=== PATIENT | female | born 1970 | race Caucasian/White ===

== ENCOUNTER → 2024-01-06 15:27 | Outpatient (REF) | payer BC, SELFPAY | LOC: MRI 3T 15:27 | PROVIDERS: ATTENDING PHYSICIAN Family Medicine | DX: I63.9 Cerebral infarction, unspecified (principal) | CPT/HCPCS: 70544 ==

== ENCOUNTER → 2024-01-13 13:17 | Outpatient (REF) | payer BC, SELFPAY | LOC: MRI 3T 13:17 | PROVIDERS: ATTENDING PHYSICIAN Family Medicine | DX: I63.9 Cerebral infarction, unspecified (principal) | CPT/HCPCS: 70549; A9585 ==

== ENCOUNTER 2024-03-16 11:04 | Emergency (ER) | payer BC, SELFPAY ==
[2024-03-16 11:15] VITALS: BP 128/71
[2024-03-16 11:27] LABS: % Eosinophils 2.3 % (0-6); % Immature Granulocytes 0.3 % (0-0.5); % Lymphocytes 36.4 % (20.5-51.1); % Monocytes 5.2 % (1.7-9.3); % Neutrophils 54.8 % (42.2-75.2); Absolute Basophils 0.1 10^3/uL (0-0.2); Absolute Eosinophils 0.1 10^3/uL (0-0.7); Absolute Lymphocytes 2.3 10^3/uL (1.2-3.4); Absolute Monocytes 0.3 10^3/uL (0.1-0.6); Absolute Neutrophils 3.4 10^3/uL (1.4-6.5); Hematocrit 36.8 % (37.0-47.0); Hemoglobin 12.4 g/dL (12.0-16.0); Mean Corp Hgb Conc. 33.7 g/dL (33.0-37.0); Mean Corpuscular Hgb 32.6 pg (27.0-31.0); Mean Corpuscular Volume 96.8 fL (81.0-99.0); Mean Platelet Volume 9.2 fL (7.4-10.4); Nucleated Red Blood Cells % 0 %; Platelet Count 213 10^3/uL (130-400); White Blood Cell Count 6.2 10^3/uL (4.8-10.8)
[2024-03-16 11:49] LABS: ALT (SGPT) 19 U/L (0-35); AST (SGOT) 25 U/L (14-36); Albumin 3.8 g/dl (3.5-5.0); Alkaline Phosphatase 46 U/L (38-126); Blood Urea Nitrogen 10 mg/dl (7-17); Calcium 9.2 mg/dl (8.4-10.2); Carbon Dioxide 27 mmol/L (22-30); Chloride 108 mmol/L (98-107); Glucose 103 mg/dl (70-99); Lipase 195 U/L (23-300); Potassium 3.9 mmol/L (3.5-5.1); Sodium 138 mmol/L (135-145); Total Bilirubin 0.5 mg/dl (0.2-1.3); Total Protein 6.2 g/dl (6.3-8.2); eGFR > 60.00
[2024-03-16 11:52] LABS: Troponin I < 0.012 ng/ml
--- NOTE | 2024-03-16 14:50 | ED.GENMED ---
History of Present Illness
<Jayne Lerma MANAGER IT SECURITY - Last Filed: 03/17/24 08:45>
General
Chief Complaint: Abdominal Symptoms
Source: patient
Exam Limitations: none
Time Seen by Provider: 03/16/24 14:49
Nursing documentation reviewed up to this point in time: agreed with
Travel History
Have you had any contact with someone who has COVID-19?: No
Do you have any symptoms of coronavirus? Fever > 100 degrees, chills, cough, shortness of breath, sore throat, loss of taste or smell, muscle aches, or headache?: No
History of Present Illness
History of Present Illness:
53-year-old with history of chronic pancreatitis, chronic abdominal pain under care of pain management Dr. Ocampo in [place], takes Vicodin 10 mg, recently upped to two tablets every 6 hours for chronic abdominal pain.
Last seen a month ago and due for her monthly appointment
Pt presents with pain from under her right arm down to RLQ starting 3 days ago. 'Different' than her typical chronic abdominal pain. The pain has moved to only Right side and epigastric area. Worse with deep breaths and certain movements. Saw GI at
[facility] 5 days ago and was told her pain is 'pancreatic pain' and referred back to pain management.
Denies fever, chills, has had frequency of urination with only small amounts past 2 days.
She can't remember her last BM, states she sometimes only goes once a week.
Requesting something for pain.
Past History
<Jayne Lerma MANAGER IT SECURITY - Last Filed: 03/17/24 08:45>
Past History
ED Past Medical History: CVA (TIA), HTN, Hypercholesterolemia, Psychiatric (Anxiety, Depression, ) and Other (Migraine headache, diverticulosis, pancreatitis, Ovarian cyst, )
ED Past Surgical History: Appendectomy, Cholecystectomy, Gynecological and Other (Hernia, )
Social History
Tobacco: Smoker
Alcohol: Occasional (Since her Pancreatitis)
Drug: None
Personal:
Living: with family
Employment: Not employed
Family History
Family History: Hypertension and Other (father with brain tumor)
Review of Systems
<Jayne Lerma MANAGER IT SECURITY - Last Filed: 03/17/24 08:45>
Review of Systems
Allergies reviewed?: Yes
All Other Systems: ROS reviewed and negative except as documented in HPI and ROS
Constitutional: Denies fever or chills
EENT: Denies sore throat
Respiratory: Denies trouble breathing
Cardiac: Denies chest pain
ABD/GI: Reports abdominal pain and constipated; Denies nausea, vomiting, diarrhea, bloody stools or black stools
: Reports frequency and difficulty voiding; Denies dysuria or urgency
Musculoskeletal: Reports muscle pain (states she has 'myopathy' )
Skin: Reports no symptoms
Neurological: Reports no symptoms
Phy Exam
<Jayne Lerma, MANAGER IT SECURITY - Last Filed: 03/17/24 08:45>
Physical Exam
Physical Exam:
GENERAL: No acute distress. A&Ox3. Pleasant.
CONSTITUTIONAL: Afebrile.
EYES: PERRL, conjunctivae normal
ENMT: moist mucus membranes, Pharynx nl
RESPIRATORY: Regular respirations, nonlabored, lungs clear.
CARDIOVASCULAR: Regular rate and rhythm, no murmurs, no rubs.
GI: Soft, no RUQ tenderness, tender all other areas of abdomen, no guarding, non distended, normal BS, no palpable masses
MUSCULOSKELETAL: Moves with ease. Well perfused.
SKIN: Warm, dry, pink
PSYCH: Normal mood and affect. Well kept, interactive and appropriate
NEUROLOGIC: Awake, alert and oriented. No focal neurological deficits
Course
<Jayne Lerma, MANAGER IT SECURITY - Last Filed: 03/17/24 08:45>
Orders/Labs/Results
Orders:
Orders
03/16/24 11:06
EKG [Electrocardiogram (*1)] Urgent
Reason for Study: Chest Pain
EKG- Treatment ONCE
03/16/24 11:22
Complete Blood Count/With Diff Urgent
Comprehensive Metabolic Panel Urgent
Lipase Urgent
Troponin I Urgent
03/16/24 15:18
Ketorolac [Toradol] 15 mg IV NOW STA
03/16/24 15:19
0.9% Sodium Chloride 1000 ml [Nss] 1,000 ml IV BOLUS
03/16/24 15:26
Urinalysis Reflex To Culture Urgent
Date Specimen was Collected: 03/16/24
Time Specimen was Collected: 15:24
Urine Microscopic Reflex Cult Urgent
Urine Culture Urgent
HOLLY Source: U
Specimen Description:
Date Specimen was Collected: 03/16/24
Time Specimen was Collected: 15:24
03/16/24 15:44
CT Abd/Pel (IV only)-DH only Urgent
Comment:
Reason For Exam: right side and epigastric pain.
Abnormal Lab Results
03/16/24 03/16/24
11:22 15:26
RBC 3.80 L 10^6/uL
(4.20-5.40)
Hct 36.8 L %
(37.0-47.0)
MCH 32.6 H pg
(27.0-31.0)
RDW 17.0 H %
(11.5-14.5)
Chloride 108 H mmol/L
(98-107)
Glucose 103 H mg/dl
(70-99)
Total Protein 6.2 L g/dl
(6.3-8.2)
Urine Ketones Trace A
(Negative)
Leukocyte Esterase Rfl Trace A
(Negative)
Urine Bacteria (Reflex) Moderate A
(Negative)
03/16/24 11:22
03/16/24 11:22
Vital Signs
Initial and Last Documented VS:
Initial Vital Signs
Temp Pulse Resp BP Pulse Ox
98.0 F 82 16 128/71 98
03/16/24 11:15 03/16/24 11:15 03/16/24 11:15 03/16/24 11:15 03/16/24 11:15
Last Documented Vital Signs
Temp Pulse Resp BP Pulse Ox
98.0 F 74 18 165/79 99
03/16/24 11:15 03/16/24 18:33 03/16/24 18:33 03/16/24 18:33 03/16/24 18:33
<Tramaine Ferrara MD - Last Filed: 03/16/24 19:02>
Orders/Labs/Results
Orders:
Orders
03/16/24 11:06
EKG [Electrocardiogram (*1)] Urgent
Reason for Study: Chest Pain
EKG- Treatment ONCE
03/16/24 11:22
Complete Blood Count/With Diff Urgent
Comprehensive Metabolic Panel Urgent
Lipase Urgent
Troponin I Urgent
03/16/24 15:18
Ketorolac [Toradol] 15 mg IV NOW STA
03/16/24 15:19
0.9% Sodium Chloride 1000 ml [Nss] 1,000 ml IV BOLUS
03/16/24 15:26
Urinalysis Reflex To Culture Urgent
Date Specimen was Collected: 03/16/24
Time Specimen was Collected: 15:24
Urine Microscopic Reflex Cult Urgent
Urine Culture Urgent
HOLLY Source: U
Specimen Description:
Date Specimen was Collected: 03/16/24
Time Specimen was Collected: 15:24
03/16/24 15:44
CT Abd/Pel (IV only)-DH only Urgent
Comment:
Reason For Exam: right side and epigastric pain.
Abnormal Lab Results
03/16/24 03/16/24
11:22 15:26
RBC 3.80 L 10^6/uL
(4.20-5.40)
Hct 36.8 L %
(37.0-47.0)
MCH 32.6 H pg
(27.0-31.0)
RDW 17.0 H %
(11.5-14.5)
Chloride 108 H mmol/L
(98-107)
Glucose 103 H mg/dl
(70-99)
Total Protein 6.2 L g/dl
(6.3-8.2)
Urine Ketones Trace A
(Negative)
Leukocyte Esterase Rfl Trace A
(Negative)
Urine Bacteria (Reflex) Moderate A
(Negative)
03/16/24 11:22
03/16/24 11:22
Vital Signs
Initial and Last Documented VS:
Initial Vital Signs
Temp Pulse Resp BP Pulse Ox
98.0 F 82 16 128/71 98
03/16/24 11:15 03/16/24 11:15 03/16/24 11:15 03/16/24 11:15 03/16/24 11:15
Last Documented Vital Signs
Temp Pulse Resp BP Pulse Ox
98.0 F 74 18 165/79 99
03/16/24 11:15 03/16/24 18:33 03/16/24 18:33 03/16/24 18:33 03/16/24 18:33
<Jayne Lerma NP - Last Filed: 03/17/24 08:45>
MDM/Problems Addressed
Differential Diagnosis Includes:
constipation, choledocholithiasis
SMA thrombus, mesenteric ischemia, pancreatic cyst compressing abdominal organs
MDM/Problems Addressed:
53-year-old with history of chronic pancreatitis, chronic abdominal pain under care of pain management Dr. Ocampo in [place], takes Vicodin 10 mg, recently upped to two tablets every 6 hours for chronic abdominal pain.
Last seen a month ago and due for her monthly appointment
Pt presents with pain from under her right arm down to RLQ starting 3 days ago. 'Different' than her typical chronic abdominal pain. The pain has moved to only Right side and epigastric area. Worse with deep breaths and certain movements. Saw GI at
[facility] 5 days ago and was told her pain is 'pancreatic pain' and referred back to pain management.
Denies fever, chills, has had frequency of urination with only small amounts past 2 days.
She can't remember her last BM, states she sometimes only goes once a week.
Requesting something for pain.
6:30 PM
CBC, CMP with no clinically significant abnormality
Lipase within normal limits
UA negative
CT abdomen pelvis with IV only contrast: Radiology report read: IMPRESSION: Within the visualized lower lungs, scattered linear and ground glass opacities, increased compared to CT scan of October 19 2023. This most likely represents atelectasis,
but please correlate with any symptoms that would suggest pneumonitis.
No suspicion of pneumonitis on exam.
Multilobulated cystic mass within the head of the pancreas and extending superiorly adjacent to the caudate lobe of the liver as well as posterior to the lateral segment left lobe liver. This is likely a pseudocyst, which has increased in size
compared to examination October 19 2023.
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 There is also narrowing of the main portal vein as a result of this presumed pseudocyst.
Consulted GI Dr. Cammy Bullard who read CT report. Recommends referral to hematology
Dr. Ferrara in to evaluate He spoke with Vascular MD who recommends admission, anticoagulation, further evaluation
Pt declines admission. 'I just want to go home.' 'I'm so hungry,' All risk discussed with her by Dr. Ferrara and myself
AMA form signed and scanned into chart.
Return symptoms reviewed
Pt has MRI scheduled for April 11, through her [facility] doctor as well as labs.
Instructed to call her [facility] doctor tomorrow and discuss CT results
Copy of report and disc sent with patient
<Jayne Lerma NP - Last Filed: 03/17/24 08:45>
*Critical Care Note
Total Time (30-74mins, 75-104mins- exclusive of procedures): Not Applicable
ED Attending Note
<Jayne Lerma NP - Last Filed: 03/17/24 08:45>
-
Portions of this chart may have been created with voice recognition software.� Occasional wrong word or��sound alike� substitutions may have occurred due to the inherent limitations of voice recognition software.
<Tramaine Ferrara MD - Last Filed: 03/16/24 19:02>
ED Attending Note
Patient seen and examined by attending physician: Yes
I performed the substantive portion of visit, reviewed & personally made and approve the management plan that is documented in note by myself or AYLEEN.: Yes
ED Attending Note:
53-year-old female with chronic abdominal pain presents with increase in somewhat different pain. I did not officially examine the patient. She was sitting up in bed nontoxic in no distress. However I had a lengthy discussion with her concerning
her CAT scans finding which showed enlarging pseudocyst and a nonocclusive SMV clot. This was discussed with GI who referred to hematology. I elected to discuss with vascular surgery who felt anticoagulation and further workup for the secondary
pseudocyst were prudent. This was discussed with the patient and we highly recommended admission anticoagulation. Lengthy discussion concerning the risk of further clotting pulmonary emboli, sepsis, . These were all explained to the patient.
She was also offered to be transferred to [facility] at the first available time given her GI doctor there. She again refused this but will follow-up. We did give her a copy of her reports with stress to call her GI physician tomorrow. I am not
comfortable starting a DOAC at this time with this diagnosis. However very close follow-up was recommended and again she is fully aware of the risk
Discharge Plan
Departure
Patient Disposition: Home (Routine Discharge)
Date of Disposition: 03/16/24
Time of Disposition: 18:31
Patient with high blood pressure during this ER visit?: No
Condition: Good
Discharge Problem:
Abdominal pain, SMA thrombus, Pancreas cyst
Instructions: Abdominal Pain
Prescriptions:
No Action
omeprazole 40 MG capsule,delayed release(DR/EC)
40 mg PO DAILY
zolpidem 10 MG tablet
10 mg PO HSPRN PRN (Reason: sleep)
Patient Comments:
patient shredder picker on 04/04/23 #30
famotidine 20 MG tablet
20 mg PO PRN PRN (Reason: reflux)
alprazolam [Xanax] 1 mg Tablet
1 mg PO DAILYPRN PRN (Reason: anxiety)
sertraline 100 mg Tablet
100 mg PO DAILY
hydrocodone-acetaminophen 10-325 mg Tablet
1 tab PO BID
Rx Instructions:
patient shredder picker on 06/05/23 #56
lisinopril 10 mg Tablet
10 mg PO DAILY
bupropion HCl [Wellbutrin XL] 150 mg Tablet Extended Release 24 Hr
150 mg PO DAILY
Repatha SureClick 140 mg/mL Pen Injector
140 mg SC Q2W
Nurtec ODT 75 mg Tablet,Disintegrating
75 mg PO DAILYPRN PRN (Reason: mirgraines)
Rx Instructions:
patient shredder picker on 05/31/23 #16
aspirin 81 mg Tablet,Chewable
81 mg PO DAILY Qty: 0 0RF
fenofibrate nanocrystallized 145 mg Tablet
145 mg PO DAILY Qty: 30 0RF
pantoprazole [Protonix] 40 mg tablet,delayed release (DR/EC)
40 mg PO DAILY Qty: 30 0RF
sucralfate [Carafate] 1 gram tablet
1 g PO ACHS Qty: 40 0RF
ondansetron 4 mg tablet,disintegrating
4 mg PO Q8H PRN (Reason: nausea and vomiting) Qty: 10 0RF
Referrals:
Your, [facility] doctor [Other] - Tomorrow
Lance Nina, DO [Family Provider] -
Activity Restrictions/Additional Instructions:
As we discussed, your pancreas cyst has increased in size, you have a clot in one of the veins of your abdomen that is not blocking any blood flow at this time but should be further evaluated YENIFER and you should be on blood thinners. We recommend
you be admitted here so we can start the blood thinners and if you wish, we could have our doctors evaluate your abdominal pain, the growing cyst on your pancreas and the clot in the blood vessel of your abdomen.
OR you could be admitted and we could transfer you if a bed at [facility] where your GI doctor is opens up
Return here or go to [facility] IMMEDIATELY for worsening abdominal pain or feeling sicker in any way.
Call you [facility] doctor tomorrow, read your CT results and make follow up appointment sooner than April 11.
The risk of not receiving blood thinners is the clot could get bigger and block the flow of blood to your vital abdominal organs and you could become very ill.
Return here at any time if you change your mind.
Interventions
Interventions:
*Risk Screen - Suicide Last Done: 03/16/24 15:31
*General Assessment Last Done: 03/16/24 15:31
*Neglect/Abuse Screening Last Done: 03/16/24 15:31
ED- Fall Risk Assessment Last Done: 03/16/24 19:21
*ED COVID-19 Vaccine History Last Done: 03/16/24 11:15
*Nursing Disposition Last Done: 03/16/24 19:21
FL-[id number]-Rhpvndxbrx Assessment Last Done: 03/16/24 15:31
Discharge Date and Time
Discharge Date/Time: 03/16/24 19:23
Print Language: [id number]
[2024-03-16 15:31] VITALS: BMI 24.7
[2024-03-16] MEDS: NSS 1000 IV (15:33)
[2024-03-16] MEDS: TORADOL 15 MG IV (15:33)
[2024-03-16 15:36] VITALS: BP 181/80
[2024-03-16 16:00] LABS: Urine Albumin Negative (Neg - Trace); Urine Bilirubin Negative (Negative); Urine Character Clear (Clear); Urine Color Yellow; Urine Glucose Negative (Negative); Urine Ketone Trace (Negative); Urine Leukocyte Trace (Negative); Urine Nitrite Negative (Negative); Urine Occult Blood Negative (Negative); Urine Specific Gravity 1.015 (<1.030); Urine Urobilinogen Negative (Neg - 1+); Urine pH 6.5 (5.0-9.0)
[2024-03-16 16:17] LABS: Urine Bacteria Moderate (Negative); Urine Red Blood Cell 0-2 /HPF (0-2); Urine White Cell 0-2 /HPF (0-5)
[2024-03-16 18:33] VITALS: BP 165/79
== END 2024-03-16 19:23 | disposition home or self-care (01) ==
LOC: EMR 11:04
PROVIDERS: Emergency Medicine; Registered Nurse; EMERGENCY PHYSICIAN Emergency Medicine; FAMILY PHYSICIAN Family Medicine
DX: K86.2 Cyst of pancreas (principal); K55.1 Chronic vascular disorders of intestine; R10.9 Unspecified abdominal pain; I10 Essential (primary) hypertension; I87.1 Compression of vein; G89.29 Other chronic pain; F17.200 Nicotine dependence, unspecified, uncomplicated
CPT/HCPCS: 99285; 96374; 96361; 74177; 80053; 81003; 81015; 83690; 84484; 85025; 87086; 93005; Q9967

== ENCOUNTER 2024-05-27 09:30 | Inpatient (IN) | payer BC, SELFPAY ==
[2024-05-26] VITALS (7 sets, daily range): BP systolic 138–207; BP diastolic 63–108; BMI 23.5; BMI 23.0
--- NOTE | 2024-05-26 03:15 | ED.GENMED ---
History of Present Illness
<AL Diaz - Last Filed: 05/26/24 05:58>
General
Chief Complaint: Abdominal Pain
Source: patient
Exam Limitations: none
Time Seen by Provider: 05/26/24 03:15
Nursing documentation reviewed up to this point in time: agreed with
History of Present Illness
History of Present Illness:
53 year old female presents for evaluation of abdominal pain. Pt reports that her pain began at approximately 09:00am on 05/25 and has been progressively worsening. Currently periumbilical in nature with radiation to her right lower back. Pt endorses
significant nausea and 12-13 bouts of vomiting since the onset of her pain. Pt has a history of chronic pancreatitis due to alcohol and chronic abdominal pain, and is followed by gastroenterology at [facility]. Most recent abdominal CT on
03/16/2024 showed multilobulated cystic mass likely a pseudocyst, which has increased in size compared to examination October 19 2023. Pt is also followed by pain management due to her chronic abdominal pain, and currently takes Vicodin 10mg PRN.
She notes that she took one Vicodin as well as three tabs of Zofran at approximately 18:30 on 05/25 with no relief of sx. She also endorses associated chills, diaphoresis, anorexia, and constipation. Denies fever, CP, SOB, diarrhea, bloody stools,
and rash.
Past History
<AL Diaz - Last Filed: 05/26/24 05:58>
Past History
ED Past Medical History: CVA (TIA), HTN, Hypercholesterolemia, Psychiatric (Anxiety, Depression, ) and Other (Migraine headache, diverticulosis, pancreatitis, Ovarian cyst, )
ED Past Surgical History: Appendectomy, Cholecystectomy, Gynecological and Other (Hernia, )
Social History
Tobacco: Smoker
Alcohol: Occasional (Since her Pancreatitis)
Drug: None
Personal:
Living: with family
Employment: Not employed
Family History
Family History: Hypertension and Other (father with brain tumor)
Review of Systems
<AL Diaz - Last Filed: 05/26/24 05:58>
Review of Systems
Allergies reviewed?: Yes
Constitutional: Reports chills
EENT: Reports no symptoms
Respiratory: Reports no symptoms
Cardiac: Reports no symptoms
ABD/GI: Reports abdominal pain, nausea, vomiting, constipated and anorexia
: Reports no symptoms
Musculoskeletal: Reports back pain (right lower back pain )
Skin: Reports no symptoms
Neurological: Reports no symptoms
Endocrine: Reports no symptoms
Hematologic/Lymphatic: Reports no symptoms
Psychiatric: Reports no symptoms
Phy Exam
<AL Diaz - Last Filed: 05/26/24 05:58>
General Physical Exam
General Presentation: moderate distress
General age: appears stated age
General Skin: warm
General Habitus: normal
General Mental: alert
General Hydration: dry mucous membranes
Cardiovascular Exam
Cardiovascular Exam: regular rate/rhythm
Pulmonary Exam
Pulmonary Exam: lungs clear and no respiratory distress
Gastrointestinal Exam
Gastrointestinal Exam: normal bowel sounds, non distended and other (TTP of periumbilical region with referred pain to right lower back )
Palpation: generalized: Moderate tenderness
Neurological Exam
Neurological Exam: alert and oriented x3
Musculoskeletal Exam
Musculoskeletal Exam: back pain
Course
<AL Diaz - Last Filed: 05/26/24 05:58>
Orders/Labs/Results
Orders:
Orders
05/26/24 03:15
Test Result ONCE
05/26/24 03:16
Lactated Ringers [Lr] 1,000 ml IV BOLUS
05/26/24 04:10
Beta HCG Quantitative Urgent
Comment: ADD ON
Complete Blood Count/With Diff Urgent
Comprehensive Metabolic Panel Urgent
HCG, Serum Qualitative Screen Urgent
Lipase Urgent
Urinalysis Reflex To Culture Urgent
Date Specimen was Collected: 05/26/24
Time Specimen was Collected: 03:32
Urine Microscopic Reflex Cult Urgent
05/26/24 04:15
Ondansetron Injectable [Zofran] 4 mg .ROUTE .STK-MED ONE
05/26/24 04:16
Ondansetron Injectable [Zofran] 4 mg IV NOW STA
05/26/24 04:29
CT Abd/pelvis W Iv Cont Urgent
Comment:
Reason For Exam: abdominal pain
05/26/24 05:05
Add On- LAB Urgent
Tests Added?: serum quant
05/26/24 05:26
HYDROmorphone [Dilaudid] 0.5 mg IV NOW STA
Ondansetron Injectable [Zofran] 4 mg IV NOW STA
Abnormal Lab Results
05/26/24
04:10
RDW 15.9 H %
(11.5-14.5)
Neutrophils % 80.2 H %
(42.2-75.2)
Lymphocytes % 15.7 L %
(20.5-51.1)
Glucose 139 H mg/dl
(70-99)
Lipase 1039 H* U/L
(23-300)
Urine Ketones Trace A
(Negative)
Urine Bilirubin 1+ A
(Negative)
Leukocyte Esterase Rfl Trace A
(Negative)
05/26/24 04:10
05/26/24 04:10
Vital Signs
Initial and Last Documented VS:
Initial Vital Signs
Temp Pulse Resp BP Pulse Ox
98.1 F 90 26 192/108 100
05/26/24 02:48 05/26/24 02:48 05/26/24 02:48 05/26/24 02:48 05/26/24 02:48
Last Documented Vital Signs
Temp Pulse Resp BP Pulse Ox
98.1 F 90 26 192/108 96
05/26/24 02:48 05/26/24 02:48 05/26/24 02:48 05/26/24 02:48 05/26/24 03:41
<Conner Murguia, DO - Last Filed: 05/26/24 05:28>
Orders/Labs/Results
Orders:
Orders
05/26/24 03:15
Test Result ONCE
05/26/24 03:16
Lactated Ringers [Lr] 1,000 ml IV BOLUS
05/26/24 04:10
Beta HCG Quantitative Urgent
Comment: ADD ON
Complete Blood Count/With Diff Urgent
Comprehensive Metabolic Panel Urgent
HCG, Serum Qualitative Screen Urgent
Lipase Urgent
Urinalysis Reflex To Culture Urgent
Date Specimen was Collected: 05/26/24
Time Specimen was Collected: 03:32
Urine Microscopic Reflex Cult Urgent
05/26/24 04:15
Ondansetron Injectable [Zofran] 4 mg .ROUTE .STK-MED ONE
05/26/24 04:16
Ondansetron Injectable [Zofran] 4 mg IV NOW STA
05/26/24 04:29
CT Abd/pelvis W Iv Cont Urgent
Comment:
Reason For Exam: abdominal pain
05/26/24 05:05
Add On- LAB Urgent
Tests Added?: serum quant
05/26/24 05:26
HYDROmorphone [Dilaudid] 0.5 mg IV NOW STA
Ondansetron Injectable [Zofran] 4 mg IV NOW STA
Abnormal Lab Results
05/26/24
04:10
RDW 15.9 H %
(11.5-14.5)
Neutrophils % 80.2 H %
(42.2-75.2)
Lymphocytes % 15.7 L %
(20.5-51.1)
Glucose 139 H mg/dl
(70-99)
Lipase 1039 H* U/L
(23-300)
Urine Ketones Trace A
(Negative)
Urine Bilirubin 1+ A
(Negative)
Leukocyte Esterase Rfl Trace A
(Negative)
05/26/24 04:10
05/26/24 04:10
Vital Signs
Initial and Last Documented VS:
Initial Vital Signs
Temp Pulse Resp BP Pulse Ox
98.1 F 90 26 192/108 100
05/26/24 02:48 05/26/24 02:48 05/26/24 02:48 05/26/24 02:48 05/26/24 02:48
Last Documented Vital Signs
Temp Pulse Resp BP Pulse Ox
98.1 F 90 26 192/108 96
05/26/24 02:48 05/26/24 02:48 05/26/24 02:48 05/26/24 02:48 05/26/24 03:41
<AL Diaz - Last Filed: 05/26/24 05:58>
MDM/Problems Addressed
Differential Diagnosis Includes:
acute on chronic pancreatitis, colitis, diverticulitis, ovarian cyst
<AL Diaz - Last Filed: 05/26/24 05:58>
*Critical Care Note
Total Time (30-74mins, 75-104mins- exclusive of procedures): Not Applicable
ED Attending Note
<AL Diaz - Last Filed: 05/26/24 05:58>
-
Portions of this chart may have been created with voice recognition software.� Occasional wrong word or��sound alike� substitutions may have occurred due to the inherent limitations of voice recognition software.
<Conner Murguia, DO - Last Filed: 05/26/24 05:28>
ED Attending Note
Patient seen and examined by attending physician: Yes
I performed the substantive portion of visit, reviewed & personally made and approve the management plan that is documented in note by myself or AYLEEN.: Yes
ED Attending Note:
Pleasant 53-year-old female presents with abdominal pain.. Patient has a history of chronic pancreatitis. She was seen at [place] and [facility] and is in the midst of a workup to determine the etiology. She was advised by
Reinaldo to follow with pain management which she has not done. Tonight she had a return of similar symptoms. She states that she has had nausea with vomiting. She had a CAT scan 2 months ago which showed multilobulated cystic mass on the
pancreas which was likely a pseudocyst. It has increased in size since October 19, 2023. Patient denies fever, chills, chest pain, or shortness of breath. Patient was seen in conjunction with the PA student. I have reviewed and agree with the
history and treatment plan presented. On my independent physical exam, patient is awake, alert, and oriented x3, moderate acute distress despite receiving pain medication.
Of note, patient's test is weakly positive. Patient states that she has not had a menstrual period in 5 to 6 years. She is postmenopausal. She also admits to not having intercourse in at least that much time.
Discharge Plan
Departure
Patient Disposition: Admit
Date of Disposition: 05/26/24
Time of Disposition: 05:28
Admit to: Telemetry
Presentation/result/management discussed w/ accepting MD/DO: Hospitalist
Condition: Good
Discharge Problem:
Acute alcoholic pancreatitis, Pseudocyst, pancreas, Pancreatic divisum
Prescriptions:
No Action
omeprazole 40 MG capsule,delayed release(DR/EC)
40 mg PO DAILY
zolpidem 10 MG tablet
10 mg PO HSPRN PRN (Reason: sleep)
Patient Comments:
patient picking supervisor on 04/04/23 #30
famotidine 20 MG tablet
20 mg PO PRN PRN (Reason: reflux)
alprazolam [Xanax] 1 mg Tablet
1 mg PO DAILYPRN PRN (Reason: anxiety)
sertraline 100 mg Tablet
100 mg PO DAILY
hydrocodone-acetaminophen 10-325 mg Tablet
1 tab PO BID
Rx Instructions:
patient picking supervisor on 06/05/23 #56
lisinopril 10 mg Tablet
10 mg PO DAILY
bupropion HCl [Wellbutrin XL] 150 mg Tablet Extended Release 24 Hr
150 mg PO DAILY
Repatha SureClick 140 mg/mL Pen Injector
140 mg SC Q2W
Nurtec ODT 75 mg Tablet,Disintegrating
75 mg PO DAILYPRN PRN (Reason: mirgraines)
Rx Instructions:
patient picking supervisor on 05/31/23 #16
aspirin 81 mg Tablet,Chewable
81 mg PO DAILY Qty: 0 0RF
fenofibrate nanocrystallized 145 mg Tablet
145 mg PO DAILY Qty: 30 0RF
pantoprazole [Protonix] 40 mg tablet,delayed release (DR/EC)
40 mg PO DAILY Qty: 30 0RF
sucralfate [Carafate] 1 gram tablet
1 g PO ACHS Qty: 40 0RF
ondansetron 4 mg tablet,disintegrating
4 mg PO Q8H PRN (Reason: nausea and vomiting) Qty: 10 0RF
Referrals:
Lance Nina DO [Family Provider] -
Interventions
Interventions:
*Risk Screen - Suicide Last Done: 05/26/24 02:48
*General Assessment Last Done: 05/26/24 03:41
*Neglect/Abuse Screening Last Done: 05/26/24 02:48
ED- Fall Risk Assessment Last Done: 05/26/24 03:41
*ED COVID-19 Vaccine History Last Done: 05/26/24 03:41
JG-Ifkulf-Niaiksqzle Assessment Last Done: 05/26/24 03:41
ED- Cardiac Assessment Last Done: 05/26/24 03:41
ED- Neurological Assessment Last Done: 05/26/24 03:41
ED- Pulmonary Assessment Last Done: 05/26/24 03:41
Discharge Date and Time
Print Language: BELIZEAN
[2024-05-26] MEDS: LR 1000 IV (04:05)
[2024-05-26] MEDS: ZOFRAN 4 MG IV ×4 (04:16→18:05)
[2024-05-26 04:36] LABS: % Basophils 0.7 % (0-2); % Eosinophils 0.4 % (0-6); % Immature Granulocytes 0.4 % (0-0.5); % Lymphocytes 15.7 % (20.5-51.1); % Monocytes 2.6 % (1.7-9.3); % Neutrophils 80.2 % (42.2-75.2); Absolute Basophils 0.1 10^3/uL (0-0.2); Absolute Lymphocytes 1.2 10^3/uL (1.2-3.4); Absolute Monocytes 0.2 10^3/uL (0.1-0.6); Hematocrit 40.8 % (37.0-47.0); Hemoglobin 14.1 g/dL (12.0-16.0); Mean Corp Hgb Conc. 34.6 g/dL (33.0-37.0); Mean Corpuscular Hgb 30.9 pg (27.0-31.0); Mean Corpuscular Volume 89.3 fL (81.0-99.0); Mean Platelet Volume 9.2 fL (7.4-10.4); Nucleated Red Blood Cells % 0 %; Platelet Count 360 10^3/uL (130-400); Red Blood Cell Count 4.57 10^6/uL (4.20-5.40); Red Cell Dist. Width 15.9 % (11.5-14.5); White Blood Cell Count 7.4 10^3/uL (4.8-10.8)
[2024-05-26 04:40] LABS: Urine Albumin Trace (Neg - Trace); Urine Bilirubin 1+ (Negative); Urine Character Slightly Cloudy (Clear); Urine Color Yellow; Urine Glucose Negative (Negative); Urine Ketone Trace (Negative); Urine Leukocyte Trace (Negative); Urine Nitrite Negative (Negative); Urine Occult Blood Negative (Negative); Urine Urobilinogen 1+ (Neg - 1+)
[2024-05-26 05:01] LABS: HCG, Serum Qualitative Screen Positive
[2024-05-26 05:02] LABS: ALT (SGPT) 20 U/L (0-35); AST (SGOT) 24 U/L (14-36); Albumin 4.6 g/dl (3.5-5.0); Alkaline Phosphatase 47 U/L (38-126); Blood Urea Nitrogen 14 mg/dl (7-17); Carbon Dioxide 23 mmol/L (22-30); Chloride 104 mmol/L (98-107); Estimated Creatinine Clearance 87 ml/min; Glucose 139 mg/dl (70-99); Lipase 1039 U/L (23-300); Potassium 4.3 mmol/L (3.5-5.1); Sodium 137 mmol/L (135-145); Total Bilirubin 0.7 mg/dl (0.2-1.3); Total Protein 6.9 g/dl (6.3-8.2); eGFR > 60.00
[2024-05-26 05:34] LABS: Beta HCG Quantitative 7.98 mIU/ml
[2024-05-26] MEDS: DILAUDID 0.5 MG IV ×3 (05:37→13:17)
[2024-05-26 05:57] LABS: Urine Amorphous Seen; Urine Bacteria Moderate (Negative)
--- NOTE | 2024-05-26 06:23 | HPS.HSE ---
Addendum entered and electronically signed by Bhakti Bridges DO 05/26/24 07:08:
# weakly positive HCG with ED provider, who spoke to patient-no sexual intercourse x 5 years, also menopausal; lab is weakly positive (has been positive in 10/16/22 as well)
#med rec is pending in order to place oral med orders
Original Note:
Family Physician
-
Family Physician: Lance iNna
Chief Complaint
-
vomiting ,abdominal pain
History of Present Illness
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
due to multiple episodes of vomiting after eating pizza on Saturday. She notes that she had 1 alcoholic beverage including vodka and red bull on Saturday. She typically drinks about 1 drink per week. Intractable vomiting is associated with epigastric
abdominal pain. Pain is radiating into her lower back. She has been followed by GI physicians at [facility] and also at [place]. She had a CT of the abdomen in March that showed multilobulated cystic mass likely a pseudocyst. She denies
fevers though has been having chills and diaphoresis. No chest pain, no shortness of breath, she is constipated. She has chronic constipation secondary to opioid use. She typically takes 60 mg total of Vicodin daily split in [address] Jiang
performed an upper endoscopic ultrasound in September 2023 that showed pancreatic pancreatic parenchymal abnormalities noted in the pancreatic head, of note endosonographic imaging in the pancreatic head body and tail showed no cyst or pseudocyst.
It also showed common bile duct dilation up to 8 mm.
Medical History
Past Medical History
Past Medical History: Reports Other
Additional Past Medical History:
History of CVA, hepatic steatosis, migraines, hypertension, hyperlipidemia, diverticulosis, prediabetes, ovarian cyst, mitochondrial disorder-details unclear, insomnia, anxiety and depression, pancreatic divisum history of a pseudocyst
Past Surgical History: Reports Other
Additional Past Surgical History:
Hernia repair, cholecystectomy ovarian cyst surgery
Social History
Tobacco: Smoker (Pack a day)
Alcohol: Other (Uses a few times a week 2-3 drinks)
Personal:
Living: With Family
Employment: Not Employed
Family History
Family History: CAD (Mother), Hypertension (Sister) and Other (Father from brain tumor)
Allergies / Home Medications
Allergies reflects when Allergies were last updated in [facility].
Home Medications with original date entered in [facility]
Allergy/Medication List:
Allergies
Allergy/AdvReac Type Severity Reaction Status Date / Time
levofloxacin [From Levaquin] Allergy joint Verified 05/26/24 02:50
swelling
prednisone [Prednisone] Allergy joint Verified 05/26/24 02:50
swelling
hydromorphone HCl AdvReac Itching Verified 05/26/24 02:50
[From Dilaudid]
steri strips Allergy Rash Uncoded 05/26/24 02:50
Home Medications
omeprazole 40 mg capsule,delayed release 40 mg PO DAILY Gastrointestinal issue 12/20/19
zolpidem 10 mg tablet 10 mg PO HSPRN PRN sleep 12/20/19
famotidine 20 mg tablet 20 mg PO PRN PRN reflux 05/06/20
alprazolam 1 mg tablet (Xanax) 1 mg PO DAILYPRN PRN anxiety 06/26/23
bupropion HCl 150 mg 24 hr tablet, extended release (Wellbutrin XL) 150 mg PO DAILY Mental Health/Anxiety 06/26/23
evolocumab 140 mg/mL subcutaneous pen injector (Repatha SureClick) 140 mg SC Q2W Autoimmune Disorder 06/26/23
hydrocodone 10 mg-acetaminophen 325 mg tablet 1 tab PO BID Pain 06/26/23
lisinopril 10 mg tablet 10 mg PO DAILY Blood Pressure 06/26/23
rimegepant 75 mg disintegrating tablet (Nurtec ODT) 75 mg PO DAILYPRN PRN mirgraines 06/26/23
sertraline 100 mg tablet 100 mg PO DAILY Mental Health/Anxiety 06/26/23
aspirin 81 mg chewable tablet 81 mg PO DAILY Blood clot prevention/tx #0 tabs 06/29/23
fenofibrate nanocrystallized 145 mg tablet 145 mg PO DAILY High cholesterol #30 tabs 06/29/23
ondansetron 4 mg disintegrating tablet 4 mg PO Q8H PRN nausea and vomiting #10 tabs 10/19/23
pantoprazole 40 mg tablet,delayed release (Protonix) 40 mg PO DAILY Gastrointestinal issue #30 tabs 10/19/23
sucralfate 1 gram tablet (Carafate) 1 g PO ACHS Gastrointestinal issue #40 tabs 10/19/23
Review of Systems
-
A 12 point ROS was completed and negative except as noted: Yes
Physical Exam
Vital Signs
Vital Signs
Temp Pulse Resp BP Pulse Ox
98.1 F 90 26 192/108 96
05/26/24 02:48 05/26/24 02:48 05/26/24 02:48 05/26/24 02:48 05/26/24 03:41
Physical Exam
General: Well Developed and Well Nourished
HEENT: NormoCephalic, Anicteric and Moist mucous membranes
Respiratory: Clear
Cardiac: S1/S2 and Regular Rhythm
GI: Soft and Tender (RUQ and periumbilical, no peritoneal signs)
Musculoskeletal: No Clubbing, No Cyanosis and No Edema
Neuro: AO x 3, No Motor Deficits and Nonfocal/grossly intact
Psych: Calm
Laboratory Results
-
05/26/24 04:10
05/26/24 04:10
Laboratory Results
Total Bilirubin 0.7 mg/dl (0.2-1.3) 05/26/24 04:10
AST 24 U/L (14-36) 05/26/24 04:10
ALT 20 U/L (0-35) 05/26/24 04:10
Alkaline Phosphatase 47 U/L (38-126) 05/26/24 04:10
Lipase 1039 U/L (23-300) H* 05/26/24 04:10
Impression/Plan
-
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
department due to multiple episodes of vomiting after eating pizza on Saturday. She notes that she had 1 alcoholic beverage including vodka and red bull on Saturday. She typically drinks about 1 drink per week. Intractable vomiting is associated with
epigastric abdominal pain. Dr. Jiang performed an upper endoscopic ultrasound in September 2023 that showed pancreatic pancreatic parenchymal abnormalities noted in the pancreatic head, of note endosonographic imaging in the pancreatic head body and
tail showed no cyst or pseudocyst. It also showed common bile duct dilation up to 8 mm.
# Acute on chronic pancreatitis.
-Lipase is 1039 today this is up from a lipase of 195 in March
-LFTs are within normal limits, no leukocytosis
-Keep n.p.o.
-IV fluids
-Monitor symptoms and advance diet as tolerated
-Pain management as needed
-As needed antiemetics
-GI consultation
CT a/p pending (done in ED)
Chronic medical conditions:
History of CVA, hepatic steatosis, migraines, hypertension, hyperlipidemia, diverticulosis, prediabetes, ovarian cyst, mitochondrial disorder-details unclear, insomnia, anxiety and depression, pancreatic divisum history of a pseudocyst
DVT proph - lovenox
Full Code
--- NOTE | 2024-05-26 08:01 | W.PN.HOSP.TC ---
Addendum entered and electronically signed by Dawn Cherry MD 05/26/24 13:44:
53-year-old female presented to the hospital after vomiting after she ate pizza yesterday. She also used alcohol-vodka and red bull on Saturday. She usually drinks 1 drink per week. Pain is also radiating to the back. Patient had an EUS/ERCP by
Dr. Jiang in September 2023 which showed pancreatic parenchymal abnormalities in the pancreatic head, no cyst or pseudocyst. CBD [address] abdomen pelvis-small multiloculated cystic lesion involving the head of the pancreas overall with slightly greater sound inflammatory changes in comparison with CT from March 16, 2024. Findings representing pancreatic pseudocyst. Superimposed
acute pancreatitis also likely. Mild hepatomegaly with diffuse fatty liver. Prior cholecystectomy.
I personally performed a history and physical exam of the patient and discussed management with the resident. I reviewed the resident's note and agree with the documented findings and plan of care HPI/CC.
CVS: S1-S2 normal
Chest: CTA B/L
Abdomen: Diffuse abdominal tenderness, bowel sounds present
Extremities: No edema, normal pulses
# Acute on chronic pancreatitis
History of pancreatitis in June 2023 and also 3-1/2 years ago.
She had a cholecystectomy in 2013
Lipase 1039
Check triglyceride level
LFTs normal
N.p.o. with IV fluids
Pain control, increase Dilaudid.
Follow lipase
GI evaluation
# Alcohol use reportedly once a week
Thiamine
MSAS Protocol
# History of weakly positive beta hCG
She has not had menstrual cycle since 2015
Outpatient LIVING ADVISOR follow-up recommended
# Mitochondrial disorder-unclear details
States that she was seen at [facility] 6 years ago and at [facility] 4 years ago.� She is not clear whether she has a diagnosis of mitochondrial myopathy
Follows up with Dr. Gallito Jameson�
# Hyperlipidemia normally on Repatha and fenofibrate
# History of CVA--aspirin and lipid management
# Anxiety and depression-continue Xanax sertraline, Wellbutrin
# GERD-continue PPI and Pepcid
# Hypertension-continue lisinopril
# Chronic pain-narcotic dependent on Vicodin takes 20 mg every 8 hours
# History migraines-on Nurtec as needed
# Insomnia-on Ambien
# Prediabetes
# Active smoker-cessation counseling
# DVT prophylaxis-Lovenox
D/W GI
Original Note:
Today's Communication/Plan
-
- continue IV fluids and NPO
repeat labs in the AM
Assessment / Plan
Assessment / Plan
# Acute on chronic pancreatitis.
- Lipase is 1039 05/26/24 this is up from a lipase of 195 in March
- LFTs are within normal limits, no leukocytosis
- Keep n.p.o.
- Continue IV fluids
- Monitor symptoms and advance diet as tolerated
- continue pain control
- IV zofran prn for nausea
- one time tigen ordered
- GI consultation
- CT: Small multiloculated cystic lesion involving the head of the pancreas overall with slightly greater surrounding inflammatory changes in comparison with relative recent prior CT March 16, 2024. Findings most likely representing a pancreatic
pseudocyst. Superimposed changes of acute pancreatitis are also likely.
#Smoking- 1PPD- ordered nicotine patch and continue bupropion
Chronic medical conditions:
History of CVA,
hepatic steatosis,
migraines,
hypertension,
hyperlipidemia,
diverticulosis,
prediabetes,
ovarian cyst,
mitochondrial disorder-details unclear,
insomnia,
anxiety and depression,
pancreatic divisum history of a pseudocyst
DVT prophylaxis - Lovenox
Full Code
Anticipated Discharge: 24 - 48 hours
Subjective/Interval History
-
Date of Service: May 26, 2024
Objective Data
-
Labs:
Laboratory Results
05/26/24
04:10
WBC 7.4
Hgb 14.1
Hct 40.8
Plt Count 360
Sodium 137
Potassium 4.3
Chloride 104
Carbon Dioxide 23
BUN 14
Creatinine 0.8
Glucose 139 H
Calcium 10.0
Total Bilirubin 0.7
AST 24
ALT 20
Alkaline Phosphatase 47
Vital Signs:
Vital Signs
Temp Pulse Resp BP Pulse Ox
98.1 F 90 26 192/108 96
05/26/24 02:48 05/26/24 02:48 05/26/24 02:48 05/26/24 02:48 05/26/24 03:41
Review of Systems
-
History Source: Patient
Constitutional: Denies Fever
Cardiac: Denies Chest Pain
Abdomen/GI: Reports Abdominal Pain
Genitourinary: Denies Frequency or Flank Pain
Musculoskeletal: Denies Joint Pain
Neuro: Denies Headache
Physical Exam
-
General: Well Developed, Well Nourished and Appears in Distress
HEENT: Normocephalic and Atraumatic
Respiratory: Clear to Auscultation
Cardiac: Regular Rhythm
GI: Soft, Normal Bowel Sounds and Tender
Skin: Warm and Dry
Neuro: Awake, Alert and Oriented
Psych: Calm
Data Reviewed
-
CT Scan: Report Reviewed by me, Discussed with Physician and Discussed with Patient
Labs: Labs Reviewed by me, Discussed with Physician and Discussed with Patient
[2024-05-26] MEDS: NSS 1000 IV ×3 (08:05→19:51)
--- NOTE | 2024-05-26 10:02 | CON.GI ---
Addendum entered and electronically signed by Cammy Samson Do, MD 05/26/24 17:48:
I saw and examined the patient.
The STROBOSCOPE OPERATOR's note was reviewed and I agree with the note.
Comment: Martine is a 53yo W with h/o migraines, CVA, ETOH abuse and recurrent pancreatitis who was admitted for acute epigastric to R sided abd pain. ETOH beverage preceeded this episode. She is known to Dr Jiang in the past for h/o pancreatic
pseudocyst. VSS AF, epigastric to RUQ TTP. CTAP reviewed +R sided stool burden, fatty liver enlarged and pancreatic small pseudocyst
Impression
- Acute on chronic pancreatitis
- Continued ETOH intake
- Hepatomegaly
- R sided stool burden
- h/o CVA
- Migraines
Recommendations
- Agree with bowel rest
- IVF LR at 200mL/hr
- Adv diet as tolerates
- Pain meds and anti-emetics per primary team
- No role currently to drain/intervene on pancreatic pseudocyst
- Miralax daily
- C/w PPI
Will follow with you
Addendum entered and electronically signed by YINKA Love 05/26/24 13:22:
pt with also hx umbilical hernia and multiple lipomas with recent Hugo Bennett with no plan for surgical intervention at this time.
Original Note:
Consultation
-
Date/Time Consultation Requested: 05/26/24 0730
Date/Time Consultation Performed: 05/26/24 0950
Requesting Provider: Bhakti Bridges DO
Performing Provider: YINKA Duvall, Cammy Bullard MD
Reason for Consultation: acute on chronic pancreatitis
Medical History
Chief Complaint / HPI
Chief Complaint: back pain
History of Present Illness:
Pt is a 53yo with hx CVA, migraines, depression, anxiety, idiopathic myopathy (with prior muscle biopsy), hepatic steatosis, migraines, diverticulitis, pre DM, pancreatic divisum and prior pseudocyst and prior ara around 2009. In reviewing
records hx pancreatitis initially in 2019. MRI at that time with small pseudocyst and pancreatic divisum. She had recurrence in [address] with 14 mm cystic lesion likely pseudocyst and MRI with 4.2 x 1.6 cm multiplobulated cyst
posterior neck of pancreas, suggest pseudocyst. She completed EUS 09/2023-with Dr. Jiang Normal esophagus. no lesion in stomach, normal duodenum, normal MPD, pancreatic abnormality c/w diffuse echogenicity, stranding and hypercheoic foci without
cyst or pseudocyst, dilation CBD 8 mm cystic lesion 16 x 70 mm left kidney and recommended ETOH and tobacco abstinence. In last few months with also saw ? Dr. Haddad at [place]-- recommended chronic pain management and Dr. Henderson at [place]
[facility] completed PETH testing with elevation and recommended ETOH/tobacco abstinence. She now presents with 1 ETOH drink on Saturday then noted with acute on chronic abdominal pain with vomiting and presents for evaluation. On admission she is
noted with stable CBC and chemistry with lipase 1039 with normal results [address] admission with multiloculated cystic lesion in head of pancreas with surround inflammatory change in comparison to CT in March.
In reviewing with patient she admits to chronic GERD on Famotidien and Omeprazole. She has nausea and vomiting yesterday prompting hospital admission. She describes non bloody emesis. She also admits to chronic abdominal pain with periods of
distention pain up to 9/10. She is on chronic narcotics and follows with pain management. She also has chronic constipation not on bowel regiment and admits to periods of diarrhea with inability to leave house with symptoms at times. + wt loss
documented 25 lbs since last fall. No blood or black in stools. She also admits to continued ETOH use several drinks per month and continued Tobacco use.
Past Medical History
Past Medical History: CVA, HTN, Hypercholesterolemia and Other (hepatic steatosis, migraines, diverticulitis, pre DM, ovarian cyst, ideopathic myopathy , insomnia, anxiety/depression, pancreatic divisum, pseudocyst)
Past Surgical History: Cholecystectomy, Gynecological (ovarian cyst surgery ) and Other (hernia repair )
Social History
Tobacco: Smoker (1 PPD)
Alcohol: Occasional (1-3 drinks 3 times per week)
Drug: None
Personal:
Living: With Family
Employment: Not Employed
Family History
Family History: Other (no family hx pancreatitis, uncle awith colon polyps, mother with colon polyps)
Allergies / Home Medications
Allergy/AdvReac Type Severity Reaction Status Date / Time
levofloxacin [From Levaquin] Allergy joint Verified 05/26/24 02:50
swelling
prednisone [Prednisone] Allergy joint Verified 05/26/24 02:50
swelling
hydromorphone HCl AdvReac Itching Verified 05/26/24 02:50
[From Dilaudid]
steri strips Allergy Rash Uncoded 05/26/24 02:50
�Medication �Instructions �Recorded
omeprazole 40 mg capsule,delayed 40 mg PO DAILY Gastrointestinal 12/20/19
release issue
zolpidem 10 mg tablet 10 mg PO HSPRN PRN sleep 12/20/19
famotidine 20 mg tablet 20 mg PO DAILYPRN PRN reflux 05/06/20
alprazolam 1 mg tablet (Xanax) 2 mg PO HS 06/26/23
bupropion HCl 150 mg 24 hr tablet, 150 mg PO DAILY Mental 06/26/23
extended release (Wellbutrin XL) Health/Anxiety
evolocumab 140 mg/mL subcutaneous 140 mg SC Q2W Autoimmune Disorder 06/26/23
pen injector (Repatha SureClick)
hydrocodone 10 mg-acetaminophen 2 tab PO TID Pain 06/26/23
325 mg tablet
sertraline 100 mg tablet 200 mg PO DAILY Mental 06/26/23
Health/Anxiety
aspirin 81 mg chewable tablet 81 mg PO DAILY Blood clot 06/29/23
prevention/tx #0 tabs
fenofibrate nanocrystallized 145 145 mg PO DAILY High cholesterol 06/29/23
mg tablet #30 tabs
buprenorphine 5 mcg/hour weekly 1 patch transdermal TH 05/26/24
transdermal patch
lisinopril 40 mg tablet 40 mg PO DAILY 05/26/24
ondansetron 4 mg disintegrating 4 mg PO Q8HPRN PRN nausea and 05/26/24
tablet vomiting
Review of Systems
-
History Source: Patient
Constitutional: Reports Weight Loss
EENT: Reports No Symptoms
Abdomen/GI: Reports Abdominal Pain (worse right sided ), Nausea, Vomiting, Diarrhea and Constipated
: Reports No Symptoms
Musculoskeletal: Reports Other (chronic back pain )
Skin: Reports No Symptoms
Neurological: Reports Weakness
Endocrine: Reports No Symptoms
Hematologic/Lymphatic: Reports No Symptoms
Vital Signs
Temp Pulse Resp BP Pulse Ox
99.3 F 79 18 138/81 97
05/26/24 08:53 05/26/24 08:53 05/26/24 08:53 05/26/24 08:53 05/26/24 08:53
Physical Exam
Exam
General: Well Developed, Well Nourished and Other (distressed with pain )
HEENT: Normocephalic and Anicteric
Respiratory: Clear
Cardiac: Regular Rhythm
GI: Soft, Non Distended and Tender (right sided )
Musculoskeletal: No Clubbing and No Cyanosis
Skin: Warm and Dry
Neuro: Awake, Alert and AO x 3
Psych: Calm
Results
WBC 7.4 10^3/uL (4.8-10.8) 05/26/24 04:10
Hgb 14.1 g/dL (12.0-16.0) 05/26/24 04:10
Hct 40.8 % (37.0-47.0) 05/26/24 04:10
MCV 89.3 fL (81.0-99.0) 05/26/24 04:10
Plt Count 360 10^3/uL (130-400) 05/26/24 04:10
Absolute Neuts (auto) 6.0 10^3/uL (1.4-6.5) 05/26/24 04:10
Sodium 137 mmol/L (135-145) 05/26/24 04:10
Potassium 4.3 mmol/L (3.5-5.1) 05/26/24 04:10
Chloride 104 mmol/L (98-107) 05/26/24 04:10
Carbon Dioxide 23 mmol/L (22-30) 05/26/24 04:10
BUN 14 mg/dl (7-17) 05/26/24 04:10
Creatinine 0.8 mg/dL (0.6-1.0) 05/26/24 04:10
Calcium 10.0 mg/dl (8.4-10.2) 05/26/24 04:10
Total Bilirubin 0.7 mg/dl (0.2-1.3) 05/26/24 04:10
AST 24 U/L (14-36) 05/26/24 04:10
ALT 20 U/L (0-35) 05/26/24 04:10
Alkaline Phosphatase 47 U/L (38-126) 05/26/24 04:10
Lipase 1039 U/L (23-300) H* 05/26/24 04:10
Diagnostic Image Results:
05/26/24 CT A/p
Small multiloculated cystic lesion involving the head of the pancreas overall with slightly greater surrounding inflammatory changes in comparison with relative recent prior CT March 16, 2024. Findings most likely representing a pancreatic pseudocyst.
Superimposed changes of acute pancreatitis are also likely.. Recommend correlation with serum lipase.
Mild hepatomegaly with diffuse fatty liver.
Prior cholecystectomy. No findings to suggest biliary tract dilatation.
Simple left renal cyst and additional two subcentimeter low-attenuation left renal lesions too small to characterize.
03/16/24 CT A/p IV only
IMPRESSION: Within the visualized lower lungs, scattered linear and groundglass opacities, increased compared to CT scan of October 19 2023. This most likely represents atelectasis, but please correlate with any symptoms that would suggest
pneumonitis.
Multilobulated cystic mass within the head of the pancreas and extending superiorly adjacent to the caudate lobe of the liver as well as posterior to the lateral segment left lobe liver. This is likely a pseudocyst, which has increased in size
compared to examination October 19 2023.
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 There is also narrowing of the main portal vein as a result of this presumed pseudocyst.
Prior GI Procedures:
EGD: 2020 - - Tortuous esophagus - no visible erosions seen.
Biopsied
- Erythematous mucosa in the gastric body. Biopsied.
- Normal examined duodenum.
Colonoscopy: 2020- - One 9 mm polyp in the rectum, removed with a cold
snare. Resected and retrieved. tx TA
- Non-bleeding internal hemorrhoids
EUS 09/2023-with Dr. Jiang Normal esophagus. no lesion in stomach, normal duodenum, normal MPD, pancreatic abnormality c/w diffuse echogenicity, starnd and hypercheoic foci, dilation CBD 8 mm cystic lesion 16 x 70 mm left kidney
Assessment / Plan
-
Pt is a 53yo with hx CVA, migraines, depression, anxiety, idiopathic myopathy (with prior muscle biopsy), hepatic steatosis, migraines, diverticulitis, pre DM, pancreatic divisum and prior pseudocyst and prior ara around 2009. In reviewing
records hx pancreatitis initially in 2019. MRI at that time with small pseudocyst and pancreatic divisum. She had recurrence in [address] with 14 mm cystic lesion likely pseudocyst and MRI with 4.2 x 1.6 cm multiplobulated cyst
posterior neck of pancreas, suggest pseudocyst. She completed EUS 09/2023-with Dr. Jiang Normal esophagus. no lesion in stomach, normal duodenum, normal MPD, pancreatic abnormality c/w diffuse echogenicity, stranding and hyperechoic foci without
cyst or pseudocyst, dilation CBD 8 mm cystic lesion 16 x 70 mm left kidney and recommended ETOH and tobacco abstinence. In last few months with also saw ? Dr. Haddad at [place]-- recommended chronic pain management and Dr. Henderson at [place]
[facility] completed PETH testing with elevation and recommended ETOH/tobacco abstinence. She now presents with 1 ETOH drink on Saturday then noted with acute on chronic abdominal pain with vomiting and presents for evaluation. On admission she is
noted with stable CBC and chemistry with lipase 1039 with normal results [address] admission with multiloculated cystic lesion in head of pancreas with surround inflammatory change in comparison to CT in March. Asked to see for ongoing
abdominal pain.
-acute on chronic pancreatitis
-imaging with multiloculated cytic lesion head of pancreas with inflammatory changes
-right sided abdominal pain
-pancreatic divisum
-constipation
-ETOH and Tobacco use
-wt loss
-Suggestion of nonocclusive thrombus within the SMV on CT in March -- per pt follow up MRI at [facility] was negative
other medical problems:
-prior noted renal cyst on EUS 2022
-hepatomegaly
-CVA
-migraines
-depression/anxiety
-idiopathic myopathy
-hepatic steatosis
-migraines
-diverticulitis
-pre DM
-migraines
PLAN:
etiology of increased pain related to concern for inflammation around cystic lesion on CT in pancreatic head , constipation as noted with chronic constipation no current bowel regiment, referred back pain vs other
will review imaging with Dr. Bullard
cont IVF currently 175ml/hr
pain control
will add Miralax and senna with untreated constipation
discussed with patient will need GI follow up with Dr. Jiang, Dr. Henderson or Dr. haddad-- will need to decide which GI specialist she would like to see
cont OP pain management
stressed ETOH and tobacco abstinence as pt admit to continued use
Pt also noted with possible SMV thrombosis in March -- she reports follow up at [facility] with MRI and not noted on follow up imaging
-
-
Thank you for consultation and allowing me to participate in the patient's care. Please call the irrigation laborer GI physician during the after hours with any questions or concerns.
--- NOTE | 2024-05-26 10:58 | PTCARENOTE ---
Arrived to floor from ED with c/o severe pain and nausea. PRN meds given please MAR. Buprenorphine patch from home present on mid upper back. Plan of care ongoing.
[2024-05-26] MEDS: ZOLOFT 200 MG PO (11:02)
[2024-05-26] MEDS: WELLBUTRIN XL (24 hour extended release) 150 MG PO (11:02)
[2024-05-26] MEDS: TRICOR PO ×2 (11:02→11:06)
[2024-05-26] MEDS: PROTONIX 40 MG PO (11:02)
[2024-05-26] MEDS: ROXICODONE 5 MG PO (11:02)
[2024-05-26 11:40] LABS: Glycohemoglobin (HgbA1c) 5.6 % (4.0-5.6)
[2024-05-26] MEDS: TIGAN 200 MG IM (12:56)
[2024-05-26] MEDS: MIRALAX 17 GRAMS PO (13:14)
[2024-05-26] MEDS: NICODERM TRANSDERMAL 14 MG TRANSDERM (13:15)
[2024-05-26] MEDS: THIAMINE INJECTION 200 MG IV (13:15)
[2024-05-26 14:28] LABS: Triglycerides 217 mg/dl (10-149)
--- NOTE | 2024-05-26 16:43 | CM ---
CM met with patient at beside to complete IA.
Martine lives with her in a multi story home with 7 entry steps and 20 steps to bedroom and bathroom.
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
She denies hx of DME, VN or SNF needs.
CM to follow to provide Martine with Advance Directive as requested by attending and assist with any other identified needs.
PCP: Lance Meyers
Pharmacy: [facility]
Plan: D/C to home with no needs anticipated
[2024-05-26] MEDS: LOVENOX 40 MG SC (17:22)
[2024-05-26] MEDS: MORPHINE SULFATE 2 MG IV (18:03)
[2024-05-26] MEDS: COMPAZINE 5 MG IV (20:44)
[2024-05-26] MEDS: MORPHINE SULFATE 1 MG IV (20:45)
[2024-05-26] MEDS: SENOKOT 17.2 MG PO (22:20)
[2024-05-26] MEDS: XANAX 2 MG PO (22:20)
[2024-05-27] VITALS (7 sets, daily range): BP systolic 129–169; BP diastolic 58–100
[2024-05-27] MEDS: APRESOLINE 5 MG IV (00:10)
[2024-05-27] MEDS: DILAUDID 0.5 MG IV ×4 (00:11→14:01)
[2024-05-27] MEDS: ZOFRAN 4 MG IV ×2 (00:36→14:01)
--- NOTE | 2024-05-27 03:01 | DOWNTIME ---
There was a [employer] Client Compound Finisher Downtime on 05/27/2024 from 0100 to 05/27/2024 at 0255. Downtime documentation of patient's care, including medication administrations, has been reconciled in the electronic record per guidelines. Refer to the
patient's paper chart under the miscellaneous tab to see printed paper medication records and downtime forms.
--- NOTE | 2024-05-27 03:38 | PTCARENOTE ---
Addendum entered by Pacheco Marrero RN 05/27/24 05:10:
AIRWORTHINESS SAFETY INSPECTOR msde aware of pt BP on higher side 197/103,hr99, Pt prefers to take dilaudid over morphine as it was helping her better. Pt states she is not allergic to dilaudid & she has taken it before, it just makes her feel funny is what she says.AIRWORTHINESS SAFETY INSPECTOR made
aware of it. IV hydralazine & Pain meds given as needed. Also compazine given as ordered as pt states tigan ,zofran didn't help.
Original Note:
Pt aaox3 able to make her needs known, pt c/o 10/10 pain in abdomen, wants something stronger for pain, also wants nausea meds. NURSE PRACTITIONER rn on site made aware of pt received morphine & zofran earlier. Pt c/o pain again & wants a higher dose of pain meds.
--- NOTE | 2024-05-27 05:11 | W.PN.UPDATE ---
Update Note
Progress Note Update
patient stated Morphine 2mg did not help with the stomach pain, therefore 1mg IV added once. Patient continued to complaint 6-10/10 abdominal pain , Dilaudid 0.5mg IV given and was pain free for 4.5 hours. stable VS
[2024-05-27] MEDS: NSS 1000 IV ×2 (05:31→15:09)
[2024-05-27] MEDS: PEPCID 20 MG PO (05:33)
--- NOTE | 2024-05-27 06:54 | W.PN.HOSP.TC ---
Addendum entered and electronically signed by Dawn Cherry MD 05/27/24 17:34:
I personally performed a history and physical exam of the patient and discussed management with the resident. I reviewed the resident's note and agree with the documented findings and plan of care HPI/CC.
CVS: S1-S2 normal
Chest: CTA B/L
Abdomen: Soft, NT / Bowel sounds present
Extremities: No edema, normal pulses
DIGESTION OPERATOR: Non focal exam
53-year-old female presented to the hospital after vomiting after she ate pizza yesterday. She also used alcohol-vodka and red bull on Saturday. She usually drinks 1 drink per week. Pain is also radiating to the back. Patient had an EUS/ERCP by
Dr. Jiang in September 2023 which showed pancreatic parenchymal abnormalities in the pancreatic head, no cyst or pseudocyst. CBD [address] abdomen pelvis-small multiloculated cystic lesion involving the head of the pancreas overall with slightly greater sound inflammatory changes in comparison with CT from March 16, 2024. Findings representing pancreatic pseudocyst. Superimposed
acute pancreatitis also likely. Mild hepatomegaly with diffuse fatty liver. Prior cholecystectomy.
I personally performed a history and physical exam of the patient and discussed management with the resident. I reviewed the resident's note and agree with the documented findings and plan of care HPI/CC.
CVS: S1-S2 normal
Chest: CTA B/L
Abdomen: Diffuse abdominal tenderness, bowel sounds present
Extremities: No edema, normal pulses
# Acute on chronic pancreatitis
History of pancreatitis in June 2023 and also 3-1/2 years ago.
She had a cholecystectomy in 2013
Lipase better
Triglycerides noted
LFTs normal
IV fluids and clear liquids and assess pain
Pain control, increase Dilaudid.
Follow lipase
GI evaluation
# Alcohol use reportedly once a week
Thiamine
MSAS Protocol
Discussed with patient and daughter that she needs to completely stop using alcohol
# History of weakly positive beta hCG
She has not had menstrual cycle since 2015
[address] PCP [address] Nina.
Patient has not had hCGs as outpatient in between
Requested WHEEL GRINDER evaluation per PCP and family request
# Mitochondrial disorder-unclear details
States that she was seen at [facility] 6 years ago and at [facility] 4 years ago.� She is not clear whether she has a diagnosis of mitochondrial myopathy
Follows up with Dr. Gallito Jameson�
# Hyperlipidemia normally on Repatha and fenofibrate
# History of CVA--aspirin and lipid management
# Anxiety and depression-continue Xanax sertraline, Wellbutrin
# GERD-continue PPI and Pepcid
# Hypertension-continue lisinopril
# Chronic pain-narcotic dependent on Vicodin takes 20 mg every 8 hours
# History migraines-on Nurtec as needed
# Insomnia-on Ambien
# Prediabetes
# Active smoker-cessation counseling
# DVT prophylaxis-Lovenox
Discussed with nursing
Discussed with patient's daughter in detail at bedside all questions answered
I have sent a message to radiology regarding the size of the pancreatic cyst
Discussed with PCP Dr. Nina
Discussed with GI
D/W Physion Advisor
time spent over 50 min
Original Note:
Today's Communication/Plan
-
continue IV fluids
Clear liquid diet
Check TSH
Asad labs in the a.m.
Assessment / Plan
Assessment / Plan
# Acute on chronic pancreatitis.
- pain improving 5/10: was 8/10 yesterday
- Lipase is 678 on 05/27: was 1039 05/26/24
- LFTs are within normal limits, no leukocytosis
- transition to clear liquid per GI
- Continue IV fluids
- Monitor symptoms and advance diet as tolerated
- continue pain control
- IV zofran prn for nausea
- one time tigen on 05/26/24
- zenpep added by GI
- check TSH
- GI recs: - No role currently to drain/intervene on pancreatic pseudocyst
CT: Small multiloculated cystic lesion involving the head of the pancreas overall with slightly greater surrounding inflammatory changes in comparison with relative recent prior CT March 16, 2024. Findings most likely representing a pancreatic
pseudocyst. Superimposed changes of acute pancreatitis are also likely.
#Smoking- 1PPD
- ordered nicotine patch and continue bupropion
# Alcohol use reportedly once a week
- IV Thiamine
- MSAS Protocol
# History of weakly positive beta hCG
- She has not had menstrual cycle since 2015
- Outpatient WHEEL GRINDER follow-up recommended
# Mitochondrial disorder-unclear details
- Follows up with Dr. Gallito Jameson�
# Hyperlipidemia normally on Repatha and fenofibrate
# History of CVA--aspirin and lipid management
# Anxiety and depression-continue Xanax sertraline, Wellbutrin
# GERD-continue PPI and Pepcid
# Hypertension-continue lisinopril
# Chronic pain-narcotic dependent on Vicodin takes 20 mg every 8 hours
# History migraines-on Nurtec as needed
# Insomnia-on Ambien
# Prediabetes
DVT prophylaxis - Lovenox
Full Code
Anticipated Discharge: 24 - 48 hours
Subjective/Interval History
-
Date of Service: May 27, 2024
Objective Data
-
Labs:
Laboratory Results
05/27/24
06:16
WBC Pending
Hgb Pending
Hct Pending
Plt Count Pending
Sodium Pending
Potassium Pending
Chloride Pending
Carbon Dioxide Pending
BUN Pending
Creatinine Pending
Glucose Pending
Calcium Pending
Vital Signs:
Vital Signs
Temp Pulse Resp BP Pulse Ox
99.5 F 100 18 169/89 94
05/27/24 05:09 05/27/24 05:09 05/27/24 02:40 05/27/24 05:09 05/27/24 02:40
Review of Systems
-
History Source: Patient
Constitutional: Denies Fever
Respiratory: Denies Cough
Cardiac: Denies Chest Pain
Abdomen/GI: Reports Abdominal Pain
Musculoskeletal: Denies Joint Pain
Neuro: Denies Dizzy
Hematologic / Lymphatic: Denies Bleeding
Physical Exam
-
General: Well Developed, Well Nourished and Comfortable
HEENT: Normocephalic and Atraumatic
Respiratory: Clear to Auscultation
Cardiac: Regular Rhythm
GI: Soft and Tender ( epigastric and umbilical area)
Skin: Warm and Dry
Neuro: Awake, Alert and Oriented
Psych: Calm
Data Reviewed
-
Labs: Labs Reviewed by me, Discussed with Physician and Discussed with Patient
[2024-05-27 07:26] LABS: Blood Urea Nitrogen 10 mg/dl (7-17); Calcium 9.1 mg/dl (8.4-10.2); Carbon Dioxide 20 mmol/L (22-30); Chloride 101 mmol/L (98-107); Estimated Creatinine Clearance 116 ml/min; Glucose 101 mg/dl (70-99); Lipase 678 U/L (23-300); Magnesium 1.8 mg/dl (1.6-2.3); Potassium 3.7 mmol/L (3.5-5.1); Sodium 134 mmol/L (135-145); eGFR > 60.00
[2024-05-27 07:27] LABS: Hematocrit 40.5 % (37.0-47.0); Hemoglobin 13.7 g/dL (12.0-16.0); Mean Corp Hgb Conc. 33.8 g/dL (33.0-37.0); Mean Corpuscular Hgb 30.5 pg (27.0-31.0); Mean Corpuscular Volume 90.2 fL (81.0-99.0); Mean Platelet Volume 9.4 fL (7.4-10.4); Platelet Count 348 10^3/uL (130-400); Red Blood Cell Count 4.49 10^6/uL (4.20-5.40); Red Cell Dist. Width 15.4 % (11.5-14.5); White Blood Cell Count 9.4 10^3/uL (4.8-10.8)
[2024-05-27] MEDS: MIRALAX 17 GRAMS PO (08:48)
[2024-05-27] MEDS: NICODERM TRANSDERMAL 14 MG TRANSDERM (08:48)
[2024-05-27] MEDS: ZOLOFT 200 MG PO (08:48)
[2024-05-27] MEDS: PROTONIX 40 MG PO (08:48)
[2024-05-27] MEDS: WELLBUTRIN XL (24 hour extended release) 150 MG PO (08:48)
[2024-05-27] MEDS: LOW STRENGTH ASPIRIN 81 MG PO (08:48)
[2024-05-27] MEDS: TRICOR 145 MG PO (08:49)
[2024-05-27] MEDS: ZESTRIL 20 MG PO (08:49)
[2024-05-27] MEDS: SENOKOT 17.2 MG PO (08:49)
[2024-05-27] MEDS: THIAMINE INJECTION 200 MG IV (08:50)
--- NOTE | 2024-05-27 09:06 | W.PN.GI.CBS2 ---
Addendum entered and electronically signed by Cammy Samson Do, MD 05/27/24 10:50:
I saw and examined the patient.
The FAMILY CENTERED SPECIALIST's note was reviewed and I agree with the note.
Comment: Continues to have abd pain but improved to 5 out of 10. No BM yet. She is open to trying [facility]
Recommendations
- Adv to [facility]
- Start zenpep with meals
- Recommend c/w IVF and pain management. Anticipate adv to low fat diet tomorrow and stopping IVF if she is tolerating
- C/w miralax, add senna BID
- ETOH cessation
No further GI recs. Can FU with Dr Jiang OP after hospital d/c
Will sign off please call for questions.
Original Note:
Today's Communication / Plan
-
etiology of increased pain related to concern for inflammation around cystic lesion on CT in pancreatic head , constipation as noted with chronic constipation no current bowel regiment, referred back pain vs other
some improvement this am
will start clear diet
pain control per hospitalist team
will add Zenpep with meals and HS
cont Miralax daily and senna BID untreated constipation
discussed with patient will need GI follow up with Dr. Jiang, Dr. Henderson or Dr. haddad-- will need to decide which GI specialist she would like to see
cont OP pain management follow up
stressed ETOH and tobacco abstinence as pt admit to continued use
Assessment / Plan
-
Pt is a 53yo with hx CVA, migraines, depression, anxiety, idiopathic myopathy (with prior muscle biopsy), hepatic steatosis, migraines, diverticulitis, pre DM, pancreatic divisum and prior pseudocyst and prior ara around 2009. In reviewing
records hx pancreatitis initially in 2019. MRI at that time with small pseudocyst and pancreatic divisum. She had recurrence in [address] with 14 mm cystic lesion likely pseudocyst and MRI with 4.2 x 1.6 cm multiplobulated cyst
posterior neck of pancreas, suggest pseudocyst. She completed EUS 09/2023-with Dr. Jiang Normal esophagus. no lesion in stomach, normal duodenum, normal MPD, pancreatic abnormality c/w diffuse echogenicity, stranding and hyperechoic foci without
cyst or pseudocyst, dilation CBD 8 mm cystic lesion 16 x 70 mm left kidney and recommended ETOH and tobacco abstinence. In last few months with also saw ? Dr. Haddad at [place]-- recommended chronic pain management and Dr. Henderson at [facility] [place] completed PETH testing with elevation and recommended ETOH/tobacco abstinence. She now presents with 1 ETOH drink on Saturday then noted with acute on chronic abdominal pain with vomiting and presents for evaluation. On admission she is
noted with stable CBC and chemistry with lipase 1039 with normal results [address] admission with multiloculated cystic lesion in head of pancreas with surround inflammatory change in comparison to CT in March. Asked to see for ongoing
abdominal pain.
-acute on chronic pancreatitis
-imaging with multiloculated cytic lesion head of pancreas with inflammatory changes
-right sided abdominal pain
-pancreatic divisum
-constipation
-ETOH and Tobacco use
-wt loss
-Suggestion of nonocclusive thrombus within the SMV on CT in March -- per pt follow up MRI at [place] was negative
other medical problems:
-prior noted renal cyst on EUS 2022
-hepatomegaly
-CVA
-migraines
-depression/anxiety
-idiopathic myopathy
-hepatic steatosis
-migraines
-diverticulitis
-pre DM
-migraines
PLAN:
etiology of increased pain related to concern for inflammation around cystic lesion on CT in pancreatic head , constipation as noted with chronic constipation no current bowel regiment, referred back pain vs other
some improvement this am
will start clear diet
pain control per hospitalist team
will add Zenpep with meals and HS
cont Miralax daily and senna BID untreated constipation
discussed with patient will need GI follow up with Dr. Jiang, Dr. Henderson or Dr. haddad-- will need to decide which GI specialist she would like to see
cont OP pain management follow up
stressed ETOH and tobacco abstinence as pt admit to continued use
Subjective
Subjective
Date of Service: May 27, 2024
some worsening pain and vomiting overnight with pain med adjustment. Now improved but still 4/10 pain on right side no stools
Objective
Data Reviewed
Laboratory Data:
Laboratory Results
05/27/24 06:16
05/27/24 06:16
Laboratory Results
Magnesium 1.8 mg/dl (1.6-2.3) 05/27/24 06:16
Total Bilirubin 0.7 mg/dl (0.2-1.3) 05/26/24 04:10
AST 24 U/L (14-36) 05/26/24 04:10
ALT 20 U/L (0-35) 05/26/24 04:10
Alkaline Phosphatase 47 U/L (38-126) 05/26/24 04:10
Lipase 678 U/L (23-300) H 05/27/24 06:16
Vital Signs and I&O:
Vital Signs
Temp Pulse Resp BP Pulse Ox
98.9 F 86 18 143/79 96
05/27/24 07:57 05/27/24 08:49 05/27/24 07:57 05/27/24 08:49 05/27/24 08:44
Physical Exam
Physical Exam
HEENT: Anicteric and Moist mucous membranes
Cardiology: Normal Sinus Rhythm
Pulmonary: Clear
GI: Soft, Non Distended and Tender (right sided )
Extremities: No Edema
Neuro: Non Focal
[2024-05-27] MEDS: ZENPEP DELAYED RELEASE CAPSULE 3 CAPSULE PO ×2 (12:18→16:38)
[2024-05-27 16:27] LABS: Beta HCG Quantitative 7.85 mIU/ml
--- NOTE | 2024-05-27 16:32 | PTCARENOTE ---
Pt AAO x3, REID well, ambulatory in room/donovan, kaylee well. VSS. Telemetry:NSR. On room air- pulseox 97%. Abd soft, rounded, pt c/o abd discomfort radiating to Rt back; mod effect from IV Dilaudid prn. Kaylee small amts clear liquids; c/o mild nausea;
IV Zofran given x1 with good effect. Pt reports (+) flatus; (-) BM so far this shift. Voiding in BR without difficulty. IVF's NSS @ 100 ml/hr infusing via Lt forearm site without sx of infiltration. Resting in bed at present. Will continue to
monitor.
[2024-05-27 16:41] LABS: TSH 1.77 uIU/ml (0.47-4.68)
[2024-05-27] MEDS: LOVENOX 40 MG SC (17:43)
[2024-05-27] MEDS: DILAUDID 1 MG IV (18:24)
[2024-05-27] MEDS: FLUSH (NSS) 1 FLUSH IV (18:25)
[2024-05-27] MEDS: SENOKOT PO (20:23)
[2024-05-27] MEDS: XANAX 2 MG PO (21:37)
[2024-05-27] MEDS: ZENPEP DELAYED RELEASE CAPSULE PO (22:47)
--- NOTE | 2024-05-28 00:43 | CON.MD ---
Consultation - Medical
-
53yo postmenopausal female admitted with acute on chronic alcoholic pancreatitis. AUTOMATIC PACKER OPERATOR consulted due to +serum HCG quant 7. Urine HCG also positive.
Patient is menopausal with [id number]. No PMB. Has not been sexually active in 5yrs. No other mohel complaints/issues.
ROS: +n/v with this episode of pancreatitis, +chronic constipation, o/w neg
Meds: see med list
ALL: Dilaudid- itching, Levaquin- joint swelling, prednisone- joint swelling, steri-strips- rash
Past Medical History
Past Medical History: CVA, hepatic steatosis, migraines, hypertension, hyperlipidemia, diverticulosis, prediabetes, ovarian cyst, mitochondrial disorder-details unclear, insomnia, anxiety and depression, pancreatic divisum history of a pseudocyst,
chronic pancreatitis, chronic opioid use
Past Surgical History: Hernia repair, cholecystectomy, ovarian cystectomy x3 as a teenager
ObHx: , ETOP x2, term delivery x1
GynHx: menarche 12yo, h/o reg menses, menopause 2016, no h/o STIs, no h/o abn paps, last pap ?5yrs ago
Social History
Tobacco: Smoker (Pack a day)
Alcohol: Other (Uses a few times a week 2-3 drinks)
Personal:
Living: With Family
Employment: Not Employed
Family History
Family History: CAD (Mother), Hypertension (Sister) and Other (Father from brain tumor)
PE: VS reviewed- see attached
Gen: WD/WN
abd: soft, NTTP, ND
Extr:no calf TTP
A/P 53yo postmenopausal female with low-level elevation in HCG, more than likely attributable to menopausal pituitary secretion of HCG.
This is especially most likely because low-level elevation in HCG was present back in 2021, without any increase in the value over two years (i.e. making tumor or other non-benign pathology unlikely, as one would expect a rise over time). Discussed
with pt that nothing needs to be done with regards to this lab value, as it is not an uncommon finding in perimenopausal and menopausal women. Initiation of estrogen therapy would more than likely cause the HCG to go down to zero (because it would
restart the feedback loop that would suppress LH and halt pituitary HCG secretion), but pt is not a good candidate for estrogen therapy due to medical hx. Checked FSH and LH just to confirm they are in menopausal range, which they are. Otherwise, no
recommendation for further testing or therapy. Pt should follow-up with mohel for routine mohel care annually. Reminded patient that she needs routine AUTOMATIC PACKER OPERATOR care, to include pap and mammo.
Thank you for allowing me the opportunity to participate in this patient's care. Will sign-off, but please feel free to contact the mohel on-call provider with any additional questions/concerns.
60 mins spent reviewing chart, counseling patient and documenting.
Willie Lucio DO
Vital Signs / Labs
-
Vital Signs and Labs:
Temp Pulse Resp BP Pulse Ox
98.7 F 76 18 135/74 96
05/27/24 23:30 05/27/24 23:30 05/27/24 23:30 05/27/24 23:30 05/27/24 23:30
05/27/24
06:16
RDW 15.4 H
Sodium 134 L
Carbon Dioxide 20 L
Glucose 101 H
Lipase 678 H
FSH 69
LH 48
HCG quant 7
Urine HCG +
HCG quant 9 in 2021
Imaging Data
-
non-contributory
[2024-05-28] MEDS: NSS 1000 IV (00:50)
[2024-05-28] MEDS: DILAUDID 1 MG IV ×2 (00:53→07:55)
[2024-05-28 03:08] VITALS: BP 117/56
[2024-05-28 06:48] LABS: Hematocrit 33.8 % (37.0-47.0); Hemoglobin 11.5 g/dL (12.0-16.0); Mean Corpuscular Hgb 30.7 pg (27.0-31.0); Mean Corpuscular Volume 90.4 fL (81.0-99.0); Mean Platelet Volume 9.3 fL (7.4-10.4); Platelet Count 309 10^3/uL (130-400); Red Blood Cell Count 3.74 10^6/uL (4.20-5.40); Red Cell Dist. Width 15.8 % (11.5-14.5); White Blood Cell Count 7.5 10^3/uL (4.8-10.8)
--- NOTE | 2024-05-28 07:04 | W.PN.HOSP.TC ---
Addendum entered and electronically signed by Dawn Cherry MD 05/28/24 13:20:
53-year-old female presented to the hospital after vomiting after she ate pizza yesterday. She also used alcohol-vodka and red bull on Saturday. She usually drinks 1 drink per week. Pain is also radiating to the back. Patient had an EUS/ERCP by
Dr. Jiang in September 2023 which showed pancreatic parenchymal abnormalities in the pancreatic head, no cyst or pseudocyst. CBD [address] abdomen pelvis-small multiloculated cystic lesion involving the head of the pancreas overall with slightly greater sound inflammatory changes in comparison with CT from March 16, 2024. Findings representing pancreatic pseudocyst. Superimposed
acute pancreatitis also likely. Mild hepatomegaly with diffuse fatty liver. Prior cholecystectomy.
I personally performed a history and physical exam of the patient and discussed management with the resident. I reviewed the resident's note and agree with the documented findings and plan of care HPI/CC.
CVS: S1-S2 normal
Chest: CTA B/L
Abdomen: Nontender
Extremities: No edema, normal pulses
# Acute on chronic pancreatitis
History of pancreatitis in June 2023 and also 3-1/2 years ago.
She had a cholecystectomy in 2013
Lipase better
Triglycerides noted
LFTs normalized.
Patient tolerating diet
Discontinue IV Dilaudid
Follow lipase
GI evaluation
# Alcohol use reportedly once a week
Thiamine
MSAS Protocol
Discussed with patient and daughter that she needs to completely stop using alcohol
# History of weakly positive beta hCG
She has not had menstrual cycle since 2015
[address] PCP [address] Nina.
Patient has not had hCGs as outpatient in between
FREIGHT TRUCKER evaluation appreciated
FSH and LHMenopausal range.
No further testing
Outpatient follow-up with FREIGHT TRUCKER discussed
# Mitochondrial disorder-unclear details
States that she was seen at [facility] and at [facility] .� She is not clear whether she has a diagnosis of mitochondrial myopathy
Follows up with Dr. Gallito Jameson�
# Hyperlipidemia normally on Repatha and fenofibrate
# History of CVA--aspirin and lipid management
# Anxiety and depression-continue Xanax sertraline, Wellbutrin
# GERD-continue PPI and Pepcid
# Hypertension-continue lisinopril
# Chronic pain-narcotic dependent on Vicodin takes 20 mg every 8 hours
# History migraines-on Nurtec as needed
# Insomnia-on Ambien
# Prediabetes
# Active smoker-cessation counseling
# DVT prophylaxis-Lovenox
Completely abstaining from alcohol discussed with the patient and also daughter
She is tolerating a diet
Okay for discharge
Discussed with GI
Patient may follow-up with Dr. Jiang or an EUS specialist of her choice
Total discharge time more than 35 minutes
Original Note:
Today's Communication/Plan
-
d/c defer to GI clearance
Assessment / Plan
Assessment / Plan
# Acute on chronic pancreatitis.
- pain improving 03/20: was 8/10 yesterday
- Lipase is 101 on 05/28/24 : 678 on 05/27: was 1039 05/26/24
- LFTs were within normal limits, no leukocytosis
- tolerated clear liquids
- advance diet per GI
- continue pain control
- IV zofran prn for nausea
- one time tigen on 05/26/24
- zenpep added by GI
- TSH WNL
- GI recs: - No role currently to drain/intervene on pancreatic pseudocyst
CT: Small multiloculated cystic lesion involving the head of the pancreas overall with slightly greater surrounding inflammatory changes in comparison with relative recent prior CT March 16, 2024. Findings most likely representing a pancreatic
pseudocyst. Superimposed changes of acute pancreatitis are also likely.
#Smoking- 1PPD
- ordered nicotine patch and continue bupropion
# Alcohol use reportedly once a week
- IV Thiamine
- MSAS Protocol
# History of weakly positive beta hCG
- She has not had menstrual cycle since 2015
- Outpatient FRE[facility] TRUCKER follow-up recommended
# Mitochondrial disorder-unclear details
- Follows up with Dr. Gallito Jameson�
# Hyperlipidemia normally on Repatha and fenofibrate
# History of CVA--aspirin and lipid management
# Anxiety and depression-continue Xanax sertraline, Wellbutrin
# GERD-continue PPI and Pepcid
# Hypertension-continue lisinopril
# Chronic pain-narcotic dependent on Vicodin takes 20 mg every 8 hours
# History migraines-on Nurtec as needed
# Insomnia-on Ambien
# Prediabetes
DVT prophylaxis - Lovenox
Full Code
Anticipated Discharge: Today
Subjective/Interval History
-
Date of Service: May 28, 2024
Objective Data
-
Labs:
Laboratory Results
05/28/24
06:36
WBC 7.5
Hgb 11.5 L
Hct 33.8 L
Plt Count 309
Sodium Pending
Potassium Pending
Chloride Pending
Carbon Dioxide Pending
BUN Pending
Creatinine Pending
Glucose Pending
Calcium Pending
Vital Signs:
Vital Signs
Temp Pulse Resp BP Pulse Ox
98.5 F 60 16 117/56 94
05/28/24 03:08 05/28/24 03:08 05/28/24 03:08 05/28/24 03:08 05/28/24 03:08
I&O
05/27/24 05/28/24 05/29/24
06:59 06:59 06:59
Intake Total 2236
Balance 2236
Review of Systems
-
History Source: Patient
Constitutional: Denies Fever
Respiratory: Denies Cough
Cardiac: Denies Chest Pain
Abdomen/GI: Reports Abdominal Pain (very mild); Denies Nausea, Vomiting, Diarrhea or Constipated
Musculoskeletal: Denies Joint Pain
Neuro: Denies Headache
Physical Exam
-
General: Well Developed and Well Nourished
HEENT: Normocephalic and Atraumatic
Respiratory: Clear to Auscultation
Cardiac: Regular Rhythm and S1/S2
GI: Soft, Nontender, Nondistended and Tender
Skin: Warm and Dry
Neuro: Awake, Alert and Oriented
Psych: Calm
Data Reviewed
-
Labs: Labs Reviewed by me, Discussed with Physician and Discussed with Patient
[2024-05-28 07:17] LABS: Blood Urea Nitrogen 13 mg/dl (7-17); Calcium 8.7 mg/dl (8.4-10.2); Carbon Dioxide 24 mmol/L (22-30); Chloride 109 mmol/L (98-107); Estimated Creatinine Clearance 99 ml/min; FSH 69.1 mIU/ml; Glucose 77 mg/dl (70-99); Lipase 101 U/L (23-300); Potassium 3.6 mmol/L (3.5-5.1); Sodium 137 mmol/L (135-145); eGFR > 60.00
[2024-05-28 07:45] VITALS: BP 148/73
[2024-05-28] MEDS: MIRALAX PO (07:51)
[2024-05-28] MEDS: ZENPEP DELAYED RELEASE CAPSULE 3 CAPSULE PO ×2 (07:51→11:27)
[2024-05-28] MEDS: SENOKOT PO (07:51)
[2024-05-28] MEDS: LOW STRENGTH ASPIRIN 81 MG PO (07:52)
[2024-05-28] MEDS: WELLBUTRIN XL (24 hour extended release) 150 MG PO (07:53)
[2024-05-28] MEDS: PROTONIX 40 MG PO (07:53)
[2024-05-28] MEDS: NICODERM TRANSDERMAL 14 MG TRANSDERM (07:53)
[2024-05-28] MEDS: TRICOR 145 MG PO (07:53)
[2024-05-28] MEDS: ZOLOFT 200 MG PO (07:54)
[2024-05-28] MEDS: THIAMINE INJECTION 200 MG IV (07:55)
[2024-05-28] MEDS: FLUSH (NSS) 1 FLUSH IV (07:55)
[2024-05-28] MEDS: ZESTRIL 20 MG PO (07:56)
--- NOTE | 2024-05-28 08:07 | PTCARENOTE ---
Pt removed Buprenorphine patch from Rt upper back (after 7 days); stated she does not want further med at this time. On prn IV pain meds while in hospital. Wasted patch witnessed by Willie Soto RN.
[2024-05-28 10:58] VITALS: BP 139/62
--- NOTE | 2024-05-28 11:34 | W.DCSUMMARY ---
Discharge Summary
Discharge Data
Date of Admission: 05/26/24
Date of Discharge: 05/28/24
-
Pending Results: No
Hospital Course
Discharging Physician : Zander Adam MD ; Dawn Cherry MD
Disposition : Home
Primary care physician : Lance Nina
Principal Discharge diagnosis : Acute on chronic pancreatitis
Chronic Discharge diagnosis : Alcohol use, history of weakly positive beta-hCG, mitochondrial disorder�unclear details, hyperlipidemia, history of CVA, anxiety, depression, GERD, hypertension, chronic pain, history of migraine, insomnia,
prediabetes, active smoker
Hospital Course : 53-year-old female presented to the emergency department with complaints of severe abdominal pain for 1 day associated with 12-13 bouts of vomiting. Given her history of chronic pancreatitis and chronic abdominal pain she was
followed by GI at [facility] and had a most recent CT scan in March which showed multilobulated cystic mass likely a pseudocyst. Blood work showed lipase of 1039�which was 195 in march. Liver function test were within normal limits. She was kept
n.p.o. and was started on IV fluids and an IV Dilaudid. GI was consulted for further evaluation and CT abdomen pelvis was also obtained. She was given IV Zofran as needed for nausea and one-time of intramuscular Tigan for severe nausea. She was
counseled for smoking cessation, she received nicotine patch and her home bupropion during her stay at the hospital. She was given morphine for pain control but was switched to IV Dilaudid given lack of benefit with morphine. After her pain
dropped down to 5/10 from 10/10. She was started on Zenpep and a clear liquid diet next day, which she tolerated well. Upon daily blood work lipase dropped to 101 on day of discharge.
She was recommended to follow-up with Dr. Jiang outpatient.
Gynecology was consulted per patient's request for positive beta hCG. FSH and LH was ordered to confirm the menopausal range, otherwise no recommendation for further testing or therapy was advised. She was recommended to follow-up outpatient with
GENERATOR WORKER annually in addition to screening Pap and mammogram.
She was also recommended to use oral stool softener/laxatives given her chronic use of narcotics to avoid opioid-induced constipation.
Important imaging findings : CT abdomen pelvis:
CHEST:Included lung bases contain some minor dependent subsegmental atelectasis. Small hiatal hernia is noted.
ABDOMEN:The liver is mildly enlarged at 19 cm with mild homogeneous overall decreased attenuation. Gallbladder is surgically absent. There are no findings to suggest biliary tract dilatation. Multiloculated cystic appearance of the head of the
pancreas is again seen with some adjacent stranding involving the adjacent duodenum, somewhat similar to prior study but with greater surrounding stranding. The body and tail of pancreas appear unremarkable. There are two subcentimeter
low-attenuation left renal lesion too small to characterize image 27 and image 32 series 201 as well as an additional simple appearing 7.2 cm left renal cyst. There is no focal intrinsic abnormality of the right kidney, adrenal glands or spleen.
Evaluation of the intestinal tract is markedly limited without oral contrast, without intestinal obstruction or free air. The abdominal aorta is normal in caliber with calcific atherosclerotic changes. There is no retroperitoneal lymphadenopathy.
Tiny fat only containing umbilical hernia is noted.
PELVIS:Urinary bladder is unopacified without gross focal intrinsic abnormality. There is no true pelvis free fluid or significant lymphadenopathy.
SKELETON:There is no focal suspicious osseous lesion.
IMPRESSION:
Small multiloculated cystic lesion involving the head of the pancreas overall with slightly greater surrounding inflammatory changes in comparison with relative recent prior CT March 16, 2024. Findings most likely representing a pancreatic pseudocyst.
Superimposed changes of acute pancreatitis are also likely.. Recommend correlation with serum lipase.
Mild hepatomegaly with diffuse fatty liver.
Prior cholecystectomy. No findings to suggest biliary tract dilatation.
Simple left renal cyst and additional two subcentimeter low-attenuation left renal lesions too small to characterize
Discharge Plan
-
Patient Disposition: Home (Routine Discharge)
Discharge Diagnosis/Procedures: Acute on chronic pancreatitis, CVA, migraines, hypertension, hyperlipidemia, diverticulosis, prediabetes, ovarian cyst, Fatty liver, insomnia, anxiety and depression, history of a pseudocyst, chronic opioid use
Condition: Good
Diet: Low Fat
Additional Diets: Avoid Alcohol.
Activity: No restrictions
Driving Restrictions: As prior to admission
Bathing Restrictions: None
Activity Restrictions/Additional Instructions:
Follow-up with either Dr. Jiang or another advanced endoscopy specialist of your choice. Completely stop alcohol use. Follow-up with outpatient GENERATOR WORKER doctor
Referrals:
Lance Nina, [Family Provider] - in less than 1 week
José Antonio Jiang MD [Active] - (follow up with Dr. Jiang, Dr. Shi or Dr. Moe for chronic pancreatitis )
Additional Discharge Medication Instructions: Take senna by mouth twice daily for constipation
take zenpep 3 capsules before meal t bed time
Prescriptions:
New
sennosides [Senna Laxative] 8.6 mg Tablet
17.2 mg PO BID Qty: 0 0RF
Zenpep 10,000-32,000 -42,000 unit Capsule,Delayed Release(Dr/Ec)
3 cap PO ACHS Qty: 30 0RF
sennosides [senna] 8.6 mg tablet
17.2 mg PO BID Qty: 60 0RF
polyethylene glycol 3350 [Miralax] 17 gram powder in packet
17 g PO DAILY Qty: 100 0RF
Continued
omeprazole 40 MG capsule,delayed release(DR/EC)
40 mg PO DAILY
zolpidem 10 MG tablet
10 mg PO HSPRN PRN (Reason: sleep)
Patient Comments:
patient picker machine operator on 01/07/24 #30
famotidine 20 MG tablet
20 mg PO DAILYPRN PRN (Reason: reflux)
alprazolam [Xanax] 1 mg Tablet
2 mg PO HS
Patient Comments:
patient picker machine operator on 04/24/24 #90
sertraline 100 mg Tablet
200 mg PO DAILY
hydrocodone-acetaminophen 10-325 mg Tablet
2 tab PO TID
bupropion HCl [Wellbutrin XL] 150 mg Tablet Extended Release 24 Hr
150 mg PO DAILY
Repatha SureClick 140 mg/mL Pen Injector
140 mg SC Q2W
aspirin 81 mg Tablet,Chewable
81 mg PO DAILY Qty: 0 0RF
fenofibrate nanocrystallized 145 mg Tablet
145 mg PO DAILY Qty: 30 0RF
lisinopril 40 mg Tablet
40 mg PO DAILY
buprenorphine 5 mcg/hour Patch Weekly
1 patch TRANSDERMAL TH
ondansetron 4 mg tablet,disintegrating
4 mg PO Q8HPRN PRN (Reason: nausea and vomiting)
Discharge Orders:
Discharge Patient (As Directed); Ordered 05/28/24
Ordered By: Dawn Cherry
Discharge Date and Time
Discharge Date/Time: 05/28/24 17:12
Print Language: STATELESS
--- NOTE | 2024-05-28 14:56 | CM ---
CM met with Martine prior to discharge to check in about any questions related to the Advance Directive. Martine felt comfortable with the document and will finalize it once she gets home.
Plan: Martine will discharge to home with no needs.
PCP: Lance Meyers
Pharmacy: [facility]
== END 2024-05-28 17:12 | disposition home or self-care (01) | DRG 439 ==
LOC: 4 EAST ACU 09:30
PROVIDERS: ADMITTING PHYSICIAN Internal Medicine; ATTENDING PHYSICIAN Hospitalist; CONSULT PHYSICIAN Internal Medicine Gastroenterology; CONSULT PHYSICIAN Obstetrics & Gynecology; EMERGENCY PHYSICIAN Student in an Organized Health Care Education/Training Program; FAMILY PHYSICIAN Family Medicine
DX: K85.90 Acute pancreatitis without necrosis or infection, unspecified (principal); E88.40 Mitochondrial metabolism disorder, unspecified; K86.3 Pseudocyst of pancreas; F11.20 Opioid dependence, uncomplicated; Q45.3 Other congenital malformations of pancreas and pancreatic duct; K86.1 Other chronic pancreatitis; K76.0 Fatty (change of) liver, not elsewhere classified; I10 Essential (primary) hypertension; F32.A Depression, unspecified; R63.4 Abnormal weight loss; K83.8 Other specified diseases of biliary tract; G72.89 Other specified myopathies; E78.5 Hyperlipidemia, unspecified; Z86.73 Personal history of transient ischemic attack (TIA), and cerebral infarction without residual deficits; G43.909 Migraine, unspecified, not intractable, without status migrainosus; G47.00 Insomnia, unspecified; F41.9 Anxiety disorder, unspecified; G89.29 Other chronic pain; K59.03 Drug induced constipation; T40.2X5A Adverse effect of other opioids, initial encounter; F10.90 Alcohol use, unspecified, uncomplicated; F17.210 Nicotine dependence, cigarettes, uncomplicated; K21.9 Gastro-esophageal reflux disease without esophagitis; R79.89 Other specified abnormal findings of blood chemistry; R73.03 Prediabetes; Z68.23 Body mass index [BMI] 23.0-23.9, adult; Z79.82 Long term (current) use of aspirin; Z79.899 Other long term (current) drug therapy; Z78.0 Asymptomatic menopausal state; Z86.19 Personal history of other infectious and parasitic diseases; Z90.49 Acquired absence of other specified parts of digestive tract; Z88.1 Allergy status to other antibiotic agents; Z88.8 Allergy status to other drugs, medicaments and biological substances; Z82.49 Family history of ischemic heart disease and other diseases of the circulatory system
CPT/HCPCS: 74177; 80048; 80053; 81003; 81015; 83001; 83002; 83036; 83690; 83735; 84443; 84478; 84702; 84703; 85025; 85027; 87086; 96361; 96374; 96375; 99285; Q9967

== ENCOUNTER → 2024-11-17 15:18 | Outpatient (REF) | payer BC, SELFPAY | LOC: WDC 15:18 | PROVIDERS: ATTENDING PHYSICIAN Obstetrics & Gynecology Gynecology; FAMILY PHYSICIAN Family Medicine | DX: Z12.31 Encounter for screening mammogram for malignant neoplasm of breast (principal) | CPT/HCPCS: 77063; 77067 ==

== ENCOUNTER → 2025-02-02 12:20 | Outpatient (REF) | payer BC, SELFPAY | LOC: PAVMRI 12:20 | PROVIDERS: ATTENDING PHYSICIAN Internal Medicine Gastroenterology; FAMILY PHYSICIAN Family Medicine | DX: K85.90 Acute pancreatitis without necrosis or infection, unspecified (principal) | CPT/HCPCS: 74183; A9575 ==

== ENCOUNTER 2025-02-26 15:05 | Emergency (ER) | payer BC, SELFPAY ==
[2025-02-26 15:09] VITALS: BP 120/73
[2025-02-26 15:44] LABS: INR 0.84; PT 11.9 Sec (11.4-14.6)
[2025-02-26 15:50] LABS: ALT (SGPT) 29 U/L (0-35); AST (SGOT) 27 U/L (14-36); Albumin 4.4 g/dl (3.5-5.0); Alkaline Phosphatase 51 U/L (38-126); Blood Urea Nitrogen 17 mg/dl (7-17); Calcium 9.5 mg/dl (8.4-10.2); Carbon Dioxide 24 mmol/L (22-30); Chloride 110 mmol/L (98-107); Glucose 107 mg/dl (70-99); Lipase 90 U/L (23-300); Potassium 4.2 mmol/L (3.5-5.1); Sodium 143 mmol/L (135-145); Total Bilirubin 0.4 mg/dl (0.2-1.3); Total Protein 6.7 g/dl (6.3-8.2); eGFR 53.46
[2025-02-26 16:01] LABS: Troponin I < 0.012 ng/ml
[2025-02-26 16:16] LABS: % Basophils 1.4 % (0-2); % Eosinophils 2.4 % (0-6); % Immature Granulocytes 0.7 % (0-0.5); % Monocytes 5.1 % (1.7-9.3); % Neutrophils 36.4 % (42.2-75.2); Absolute Basophils 0.1 10^3/uL (0-0.2); Absolute Eosinophils 0.2 10^3/uL (0-0.7); Absolute Immature Granulocytes 0.1 10^3/uL (0-0.05); Absolute Lymphocytes 3.8 10^3/uL (1.2-3.4); Absolute Monocytes 0.4 10^3/uL (0.1-0.6); Absolute Neutrophils 2.6 10^3/uL (1.4-6.5); Hematocrit 39.7 % (37.0-47.0); Hemoglobin 13.4 g/dL (12.0-16.0); Mean Corp Hgb Conc. 33.8 g/dL (33.0-37.0); Mean Corpuscular Hgb 31.5 pg (27.0-31.0); Mean Corpuscular Volume 93.4 fL (81.0-99.0); Mean Platelet Volume 9.3 fL (7.4-10.4); Nucleated Red Blood Cells % 0 %; Platelet Count 295 10^3/uL (130-400); Red Blood Cell Count 4.25 10^6/uL (4.20-5.40); Red Cell Dist. Width 14.6 % (11.5-14.5); White Blood Cell Count 7.1 10^3/uL (4.8-10.8)
[2025-02-26 17:09] VITALS: BP 127/74
[2025-02-26 17:16] VITALS: BP 127/74
[2025-02-26 19:13] VITALS: BP 134/77; BMI 25.3
[2025-02-26] MEDS: NSS 1000 IV (19:18)
--- NOTE | 2025-02-26 19:27 | ED.GENMED ---
History of Present Illness
General
Chief Complaint: Abdominal Pain
Source: patient
Exam Limitations: none
Time Seen by Provider: 02/26/25 18:52
Nursing documentation reviewed up to this point in time: agreed with
History of Present Illness
History of Present Illness:
54 yo female w h/o chronic pain on Fentanyl patch q 3 days, Vicodin , 'chronic pancreatitis,' HTN, HLD, fatty liver, Diverticulitis, anxiety/depression, alcohol abuse, cholecystectomy, appendectomy, presents for recurrence of her chronic RUQ
pain, pain across upper abdomen and both sides mid to lower back. Pain started 6 days ago with vomiting x 2 that day but none since. Has felt nauseous and been taking Zofran. Pain waxes and wanes 01/18- 07/21. She thought 'for sure it was my
pancreatitis.' 'But I looked at my lab results in the Waiting Room and my Lipase is normal so now I'm really concerned.'
Denies fever, diarrhea, constipation. Denies UTI symptoms.
Had MRI of abdomen here on 02/02 and has appt with GI Dr. Jiang in April
Past History
Past History
ED Past Medical History: CVA (TIA), HTN, Hypercholesterolemia, Psychiatric (Anxiety, Depression, ) and Other (Migraine headache, diverticulosis, pancreatitis, Ovarian cyst, )
ED Past Surgical History: Appendectomy, Cholecystectomy, Gynecological and Other (Hernia, )
Social History
Tobacco: Smoker
Alcohol: Occasional (Since her Pancreatitis)
Drug: None
Personal:
Living: with family
Employment: Not employed
Family History
Family History: Hypertension and Other (father with brain tumor)
Review of Systems
Review of Systems
Allergies reviewed?: Yes
All Other Systems: ROS reviewed and negative except as documented in HPI and ROS
Constitutional: Denies fever
Respiratory: Denies trouble breathing
Cardiac: Denies chest pain
ABD/GI: Reports abdominal pain and nausea; Denies diarrhea, constipated, bloody stools or black stools
: Denies dysuria, frequency or difficulty voiding
Musculoskeletal: Reports back pain; Denies edema
Skin: Reports no symptoms
Neurological: Reports no symptoms
Phy Exam
Physical Exam
Physical Exam:
GENERAL: No acute distress. A&Ox3.
CONSTITUTIONAL: Afebrile.
EYES: clear, conjunctivae normal
ENMT: moist mucus membranes, Pharynx nl
RESPIRATORY: Regular respirations, nonlabored, lungs clear.
CARDIOVASCULAR: Regular rate and rhythm, no murmurs, no rubs.
GI: Soft, tender across upper abdomen mainly in the right upper quadrant. Normal BS
MUSCULOSKELETAL: Moves with ease. Well perfused.
SKIN: Warm, dry, pink
PSYCH: Normal mood and affect. Well kept, interactive and appropriate
NEUROLOGIC: Awake, alert and oriented. No focal neurological deficits
Course
Orders/Labs/Results
Orders:
Orders
02/26/25 15:12
EKG [Electrocardiogram (*1)] Urgent
Reason for Study: Abdominal Pain
02/26/25 15:13
EKG- Treatment ONCE
02/26/25 15:17
Complete Blood Count/With Diff Urgent
Comprehensive Metabolic Panel Urgent
Lipase Urgent
Prothrombin Time Urgent
Troponin I Urgent
02/26/25 19:18
0.9% Sodium Chloride 1000 ml [Nss] 1,000 ml IV BOLUS
02/26/25 19:26
CT Abd/Pel (IV only)-DH only Urgent
Comment:
Reason For Exam: RUQ pain, pain across upper abd and lower back
0.9% Sodium Chloride 1000 ml [Nss] 1,000 ml IV BOLUS
02/26/25 20:20
Ketorolac [Toradol] 15 mg IV NOW STA
02/26/25 20:51
Ondansetron Injectable [Zofran] 4 mg IV NOW STA
02/26/25 22:01
Sucralfate [Carafate] 1 gram PO NOW STA
Abnormal Lab Results
02/26/25
15:17
MCH 31.5 H pg
(27.0-31.0)
RDW 14.6 H %
(11.5-14.5)
Abs Immat Gran (auto) 0.1 H 10^3/uL
(0-0.05)
Absolute Lymphs (auto) 3.8 H 10^3/uL
(1.2-3.4)
Immature Gran % 0.7 H %
(0-0.5)
Neutrophils % 36.4 L %
(42.2-75.2)
Lymphocytes % 54.0 H %
(20.5-51.1)
Chloride 110 H mmol/L
(98-107)
Creatinine 1.2 H mg/dL
(0.6-1.0)
Glucose 107 H mg/dl
(70-99)
02/26/25 15:17
02/26/25 15:17
Vital Signs
Initial and Last Documented VS:
Initial Vital Signs
Temp Pulse Resp BP Pulse Ox
98.2 F 83 18 120/73 99
02/26/25 15:09 02/26/25 15:09 02/26/25 15:09 02/26/25 15:09 02/26/25 15:09
Last Documented Vital Signs
Temp Pulse Resp BP Pulse Ox
98.2 F 66 16 134/77 98
02/26/25 15:09 02/26/25 19:13 02/26/25 19:13 02/26/25 19:13 02/26/25 19:13
MDM/Problems Addressed
Differential Diagnosis Includes:
choledocholithiasis, pancreatitis, gastritis
MDM/Problems Addressed:
54 yo female w h/o chronic pain on Fentanyl patch q 3 days, Vicodin , 'chronic pancreatitis,' HTN, HLD, fatty liver, Diverticulitis, anxiety/depression, alcohol abuse, cholecystectomy, appendectomy, presents for recurrence of her chronic RUQ
pain, pain across upper abdomen and both sides mid to lower back. Pain started 6 days ago with vomiting x 2 that day but none since. Has felt nauseous and been taking Zofran. Pain waxes and wanes 01/18- 07/21. She thought 'for sure it was my
pancreatitis.' 'But I looked at my lab results in the Waiting Room and my Lipase is normal so now I'm really concerned.'
Denies fever, diarrhea, constipation. Denies UTI symptoms.
Had MRI of abdomen here on 02/02 and has appt with GI Dr. Jiang in April
EKG NSR yes so she probably okay pancreatitis or gastritis/drinks alcohol I will give her PPI and if she is symptomatic she needs to be admitted for symptoms if she does not meet if her symptoms are controlled start on PPI she is on omeprazole she
can be discharged if she feels treatment is supportive if she is not vomiting and she is vomiting she says she is been taking she is having joint pain she had a lot of nausea vomiting reasonable yeah so we will just started 60-year-old male with
history of diabetes redness, pain, swelling is minor abrasion on the anterior loaiza. There is increased redness and pain. Redness. Tachycardic and febrile. Small wound on the anterior loaiza left lower leg. Anteriorly to the posterior calf,
streaking up the left thigh as well. Edema on left lower extremity. Patient presents with fever and redness, swelling, pain in the left leg. Concern for cellulitis. No hyponatremia. Treated with IV antibiotics ultrasound of the muscle for
cellulitis close
EKG: NSR
MRI result from 02/03/25 report: IMPRESSION:
New 2.2 cm in length segment of narrowing involving the mid common bile duct suspicious for a developing stricture.
1.9 cm cystic lesion of the posterior pancreatic head, decreased in size compared to the abdominal MRI from 08/16/2023. Smaller 0.7 cm cystic focus in the anterior pancreatic head. Both are favored to represent pancreatic pseudocysts in the setting
of previous pancreatitis.
Severe hepatic steatosis and mild hepatomegaly.
CT abdomen pelvis with IV only contrast radiology report read: IMPRESSION:
Nonspecific inflammatory changes in the right upper quadrant between the head of the pancreas, duodenum, and along the course of the common bile duct. Etiology uncertain. Possible considerations include duodenitis, pancreatitis, or ascending
cholangitis. Mild distention of the common bile duct, 12 mm. No intrahepatic ductal dilatation.
Mild hepatomegaly with fatty infiltration.
CBC with no clinically significant abnormality CMP
With no clinically significant abnormality
Troponin within normal limits
10:00 PM:
Pt states her last alcoholic drink was 6 days ago. Instructed her to not drink alcohol
Patient offered admission for pain management but she kindly declined and wants to go home.
I sent a text to the GI front office to get her in sooner than April
Strict return instructions reviewed with her.
*EKG
EKG Intrepretation Date: 02/26/25
Interpretation: normal
Heart Rate: 70
Rate: normal
Rhythm: sinus
[place]: normal axis
Interval: normal interval
QRS Pattern: normal QRS
Ischemia: no ischemia
*Critical Care Note
Total Time (30-74mins, 75-104mins- exclusive of procedures): Not Applicable
ED Attending Note
-
Portions of this chart may have been created with voice recognition software.� Occasional wrong word or��sound alike� substitutions may have occurred due to the inherent limitations of voice recognition software.
Discharge Plan
Departure
Patient Disposition: Home (Routine Discharge)
Date of Disposition: 02/26/25
Time of Disposition: 22:05
Patient with high blood pressure during this ER visit?: No
Condition: Good
Discharge Problem:
Duodenitis, Gastritis
Instructions: Riddle diet, Gastritis - Discharge instructions
Prescriptions:
New
sucralfate [Carafate] 1 gram tablet
1 g PO ACHS Qty: 30 0RF
No Action
omeprazole 40 MG capsule,delayed release(DR/EC)
40 mg PO DAILY
zolpidem 10 MG tablet
10 mg PO HSPRN PRN (Reason: sleep)
Patient Comments:
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
famotidine 20 MG tablet
20 mg PO DAILYPRN PRN (Reason: reflux)
alprazolam [Xanax] 1 mg Tablet
2 mg PO HS
Patient Comments:
patient crab picker on 04/24/24 #90
sertraline 100 mg Tablet
200 mg PO DAILY
hydrocodone-acetaminophen 10-325 mg Tablet
2 tab PO TID
bupropion HCl [Wellbutrin XL] 150 mg Tablet Extended Release 24 Hr
150 mg PO DAILY
Repatha SureClick 140 mg/mL Pen Injector
140 mg SC Q2W
aspirin 81 mg Tablet,Chewable
81 mg PO DAILY Qty: 0 0RF
fenofibrate nanocrystallized 145 mg Tablet
145 mg PO DAILY Qty: 30 0RF
lisinopril 40 mg Tablet
40 mg PO DAILY
buprenorphine 5 mcg/hour Patch Weekly
1 patch TRANSDERMAL TH
ondansetron 4 mg tablet,disintegrating
4 mg PO Q8HPRN PRN (Reason: nausea and vomiting)
sennosides [Senna Laxative] 8.6 mg Tablet
17.2 mg PO BID Qty: 0 0RF
Zenpep 10,000-32,000 -42,000 unit Capsule,Delayed Release(Dr/Ec)
3 cap PO ACHS Qty: 30 0RF
sennosides [senna] 8.6 mg tablet
17.2 mg PO BID Qty: 60 0RF
polyethylene glycol 3350 [Miralax] 17 gram powder in packet
17 g PO DAILY Qty: 100 0RF
Referrals:
Gaibler,Lance C., DO [Family Provider] -
José Antonio Jiang MD [Active] - Next open appointment
Activity Restrictions/Additional Instructions:
As we discussed, you have gastritis/duodenitis, inflammation of the stomach areas.
I sent a prescription to your pharmacy for Carafate, started tomorrow as you were given a dose here today
I sent a message to the GI doctors office to get you in sooner than April, call them Saturday to confirm
Return here immediately for inability to hold any fluids down, repeated vomiting, dark or bloody stools, worsening abdominal pain or feeling worse in any way
No alcohol
Riddle diet
Interventions
Interventions:
*Risk Screen - Suicide Last Done: 02/26/25 15:11
*General Assessment Last Done: 02/26/25 15:11
*Neglect/Abuse Screening Last Done: 02/26/25 15:11
*ED- Fall Risk Assessment Last Done: 02/26/25 22:48
*ED COVID-19 Vaccine History Last Done: 02/26/25 15:11
*Nursing Disposition Last Done: 02/26/25 22:48
LI-Jqgplj-Tlbggwtqmx Assessment Last Done: 02/26/25 19:41
Discharge Date and Time
Discharge Date/Time: 02/26/25 22:48
Print Language: ROMANIAN
[2025-02-26] MEDS: TORADOL 15 MG IV (20:35)
[2025-02-26] MEDS: ZOFRAN 4 MG IV (20:54)
--- NOTE | 2025-02-26 21:00 | EDRN ---
Medicated patient for pain and while doing that she asked for nausea meds so that was ordered and given as well.
--- NOTE | 2025-02-26 21:53 | EDRN ---
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
[2025-02-26] MEDS: CARAFATE 1 GRAM PO (22:13)
== END 2025-02-26 22:48 | disposition home or self-care (01) ==
LOC: EMR 15:05
PROVIDERS: Emergency Medicine; EMERGENCY PHYSICIAN Emergency Medicine; FAMILY PHYSICIAN Family Medicine
DX: K29.80 Duodenitis without bleeding (principal); K29.70 Gastritis, unspecified, without bleeding; I10 Essential (primary) hypertension; E78.00 Pure hypercholesterolemia, unspecified; E11.9 Type 2 diabetes mellitus without complications; F41.8 Other specified anxiety disorders; F17.200 Nicotine dependence, unspecified, uncomplicated; Z79.891 Long term (current) use of opiate analgesic; Z82.49 Family history of ischemic heart disease and other diseases of the circulatory system; Z86.73 Personal history of transient ischemic attack (TIA), and cerebral infarction without residual deficits; Z90.49 Acquired absence of other specified parts of digestive tract
CPT/HCPCS: 99284; 96374; 96375; 96361; 74177; 80053; 83690; 84484; 85025; 85610; 93005; Q9967

== ENCOUNTER 2025-03-27 03:59 | Emergency (ER) | payer BC, SELFPAY ==
[2025-03-27 04:02] VITALS: BP 121/81
[2025-03-27 04:48] LABS: Hematocrit 40.5 % (37.0-47.0); Hemoglobin 13.6 g/dL (12.0-16.0); Mean Corp Hgb Conc. 33.6 g/dL (33.0-37.0); Mean Corpuscular Hgb 31.4 pg (27.0-31.0); Mean Corpuscular Volume 93.5 fL (81.0-99.0); Platelet Count 356 10^3/uL (130-400); Red Blood Cell Count 4.33 10^6/uL (4.20-5.40); Red Cell Dist. Width 14.3 % (11.5-14.5); White Blood Cell Count 11.7 10^3/uL (4.8-10.8)
[2025-03-27 05:00] LABS: ALT (SGPT) 15 U/L (0-35); AST (SGOT) 17 U/L (14-36); Albumin 4.4 g/dl (3.5-5.0); Alkaline Phosphatase 34 U/L (38-126); Blood Urea Nitrogen 24 mg/dl (7-17); Calcium 9.7 mg/dl (8.4-10.2); Carbon Dioxide 22 mmol/L (22-30); Chloride 111 mmol/L (98-107); Glucose 116 mg/dl (70-99); Lipase 110 U/L (23-300); Potassium 3.8 mmol/L (3.5-5.1); Sodium 142 mmol/L (135-145); Total Bilirubin 0.3 mg/dl (0.2-1.3); Total Protein 6.9 g/dl (6.3-8.2); eGFR 44.43
[2025-03-27 05:28] VITALS: BMI 23.9
--- NOTE | 2025-03-27 05:33 | EDRN ---
Pt was here one month ago and says she had a CT scan for abd pain, informed it was gastritis and says she feels 'like there is a gaping hole in my stomach someone is eating at and it is unbearable.' Pt says pain waxes and wanes, she cannot touch
her stomach because it is sore and she has not been eating. 'It's way worse than it was 1 month ago.' Pt saw her PCP on and was told her bile duct was constricting on CT scan. Pt was on fentanyl patch 100mcg couple weeks ago but she
stopped it. Doctor restarted fentanyl patch at 75mcg. Pt has appt with GI April 20 and has not been able to get appt moved up. Nausea, no vomiting. Pt says when she is very nauseous she takes zofran and when she sits up she burps which
helps the pain. 'I've burped more in the past week than I have in 10 years.' No fever/chills/cough, cp, sob, urinary symptoms. Pt was constipated but says she went twice yesterday morning. Pt's last alcohol was half a mimosa on Mother's day.
[2025-03-27 05:39] VITALS: BP 113/79
[2025-03-27 05:59] LABS: % Basophils 1.4 % (0-2); % Immature Granulocytes 0.3 % (0-0.5); % Lymphocytes 41.2 % (20.5-51.1); % Monocytes 4.9 % (1.7-9.3); % Neutrophils 50.2 % (42.2-75.2); Absolute Basophils 0.2 10^3/uL (0-0.2); Absolute Eosinophils 0.2 10^3/uL (0-0.7); Absolute Lymphocytes 4.8 10^3/uL (1.2-3.4); Absolute Monocytes 0.6 10^3/uL (0.1-0.6); Absolute Neutrophils 5.9 10^3/uL (1.4-6.5); Nucleated Red Blood Cells % 0 %
--- NOTE | 2025-03-27 07:38 | ED.GENMED ---
History of Present Illness
General
Chief Complaint: Abdominal Pain
Source: patient and records
Time Seen by Provider: 03/27/25 07:07
History of Present Illness
History of Present Illness:
54-year-old female with past medical history of previous TIA, hypertension, hyperlipidemia, chronic pancreatitis, previous diverticulitis, history of alcohol abuse, recently diagnosed with suspected duodenitis presenting back to the emergency
department due to continued and worsening upper abdominal pain described to be as if someone put a hole in her stomach, constant, nonradiating, no relief with Carafate that was prescribed to her from this emergency department couple of weeks ago,
attempted to follow-up with her GI physician but was unable to move her appointment up from April 20. Patient came back to the emergency department today due to the continued nature of the pain. She does state the quality of the pain is worse but
the location is the same. Denies any new symptoms including fevers, chills, rigors, nausea, vomiting, bowel changes or urinary, chest pain or shortness of breath. Patient states that she did have a Mimosa on Mother's Day but otherwise denies any
other alcohol use. She does note continuing to about 1 pack/day. Surgical history was noted for previous cholecystectomy. Patient did follow-up with her primary care provider since her ER visit however states they did not do anything additional
for her.
Past History
Past History
ED Past Medical History: CVA (TIA), HTN, Hypercholesterolemia, Psychiatric (Anxiety, Depression, ) and Other (Migraine headache, diverticulosis, pancreatitis, Ovarian cyst, )
ED Past Surgical History: Appendectomy, Cholecystectomy, Gynecological and Other (Hernia, )
Social History
Tobacco: Smoker
Alcohol: Chronic alcoholic (Since her Pancreatitis)
Drug: None
Personal:
Living: with family
Employment: Not employed
Family History
Family History: Hypertension and Other (father with brain tumor)
Review of Systems
Review of Systems
All Other Systems: ROS reviewed and negative except as documented in HPI and ROS
Phy Exam
Physical Exam
Physical Exam:
GENERAL: Alert , in no apparent distress but patient is tearful and upset
EYE: clear conjunctiva b/l
HEAD: NCAT
ENT: o/p clr, mmm.
CARDIAC: Regular rate and rhythm .
LUNGS: Clear breath sounds bilaterally, no acute respiratory distress, no wheezes/rales/rhonchi
ABDOMEN: Soft, tender epigastrium, no r/g, no cvat
NEUROLOGICAL: Alert and oriented
SKIN: Warm and dry, skin intact.
MUSCULOSKELETAL: No edema, well perfused.
PSYCH: Normal and appropriate interaction.
Scores
Heart Failure Risk
Heart Failure Risk Score: Not Applicable
Heart Score for Chest Pain Patients
STEMI patient?: Not applicable
Withdrawal Assessment of Alcohol
Withdrawal Assessment Completed?: Not applicable
Course
Orders/Labs/Results
Orders:
Orders
03/27/25 04:14
Electrocardiogram (*1) Urgent
Reason for Study: Abdominal Pain
EKG- Treatment ONCE
03/27/25 04:30
Complete Blood Count/With Diff Urgent
Comprehensive Metabolic Panel Urgent
Lipase Urgent
03/27/25 07:27
CT Abd/pel (oral only)-[facility] Only Urgent
Comment:
Reason For Exam: continuing upper abd pain
Iohexol [Omnipaque] See Protocol PO NOW STA
Mag Hydrox/Al Hydrox/Simeth [Maalox] 30 ml Phenobarb/Hyoscy/Atropine/Scop [] 10 ml Viscous Lidocaine 2% [Xylocaine Viscous Cup] 10 ml PO NOW
03/27/25 08:50
Mag Hydrox/Al Hydrox/Simeth [Maalox] 30 ml .ROUTE .STK-MED ONE
Phenobarb/Hyoscy/Atropine/Scop [] 10 ml .ROUTE .STK-MED ONE
Viscous Lidocaine 2% [Xylocaine Viscous Cup] 15 ml .ROUTE .STK-MED ONE
03/27/25 08:58
Troponin I Urgent
Abnormal Lab Results
03/27/25
04:30
WBC 11.7 H 10^3/uL
(4.8-10.8)
MCH 31.4 H pg
(27.0-31.0)
Absolute Lymphs (auto) 4.8 H 10^3/uL
(1.2-3.4)
Chloride 111 H mmol/L
(98-107)
BUN 24 H mg/dl
(7-17)
Creatinine 1.4 H mg/dL
(0.6-1.0)
Glucose 116 H mg/dl
(70-99)
Alkaline Phosphatase 34 L U/L
(38-126)
03/27/25 04:30
03/27/25 04:30
Vital Signs
Initial and Last Documented VS:
Initial Vital Signs
Temp Pulse Resp BP Pulse Ox
98.0 F 106 20 121/81 98
03/27/25 04:02 03/27/25 04:02 03/27/25 04:02 03/27/25 04:02 03/27/25 04:02
Last Documented Vital Signs
Temp Pulse Resp BP Pulse Ox
98.0 F 77 16 117/67 98
03/27/25 04:02 03/27/25 10:53 03/27/25 10:53 03/27/25 10:53 03/27/25 10:53
MDM/Problems Addressed
Differential Diagnosis Includes:
GERD, pancreatitis, duodenitis, gastritis, cholangitis, atypical ACS presentation, less concern for any vascular etiologies
MDM/Problems Addressed:
54-year-old female presenting back to the emergency department for evaluation after being seen in this emergency department a few weeks ago for the same upper abdominal pain. Patient stating pain worse despite medications given patient has a noted
history for chronic pain and is on multiple med's including fentanyl patch, Vicodin in addition to the medications that she takes for chronic abdominal pain secondary to the pancreatitis. Patient did have an MRI less than 2 months ago showing
narrowing of the mid common bile duct suspicious for developing stricture. There is also suspected pseudocysts seen are decreased in size from previous. Patient also had a CT scan done on her visit here showing nonspecific inflammatory changes
with etiology uncertain but possible diagnoses included duodenitis, pancreatitis or a ascending cholangitis. Patient was offered admission on her last visit however she preferred to be discharged home. I reviewed with her that I suspected all of
the symptoms she is experiencing today are likely related to her chronic symptoms and that I did not suspect any acute emergent pathologies but that we could attempt pain control and that if this did not work we could admit the patient for further
pain management as well as potential GI evaluation. Patient insisting we repeat a CT scan. I did inform patient that she has already had MRI as well as CT scan within the last 2 months and that these did not show anything acute but did need
further follow-up. Patient insisting we do another CAT scan today. CT scan ordered. Disposition pending.
Chronic conditions affecting care: Previous abdomnial surgery and Other (Chronic pain/chronic pancreatitis)
*Radiology
Radiology exam reviewed: radiology read reviewed
*Pulse Oximetry
Patient hypoxic: no
*Critical Care Note
Total Time (30-74mins, 75-104mins- exclusive of procedures): Not Applicable
Data Reviewed
Review of Other/Old Records Reveals: Labs, Records and Radiology Studies
Patient Management
Escalation/DeEscalation of care consider admission/obs:
CT today shows the following:
IMPRESSION:
There is stranding and edema within the right upper quadrant adjacent to the distal stomach/proximal duodenum and pancreatic head. Findings may represent pancreatitis or gastritis/duodenitis possibly the setting of a small gastric ulcer Recommend
correlation with lipase.
Hepatic steatosis, similar to prior.
I reviewed these findings with patient. Given her continued pain and multiple visits for similar I again offered her admission for further pain control and GI evaluation however patient states she knows that nothing would be done over the weekend
and she would feel more comfortable being at home. I expressed to the patient that she noted to me she was frustrated with her inability to see GI in a timely matter and that this would be a good way for them to evaluate her and determine if she
needed any further testing within the hospital but patient still expressed her wishes to be discharged home. I again reiterated importance of alcohol cessation as well as smoking cessation. Will trial Maalox at home. Continue PPI and Pepcid.
Aware of return precautions.
ED Attending Note
-
Portions of this chart may have been created with voice recognition software.� Occasional wrong word or��sound alike� substitutions may have occurred due to the inherent limitations of voice recognition software.
Discharge Plan
Departure
Patient Disposition: Home (Routine Discharge)
Date of Disposition: 03/27/25
Time of Disposition: 11:58
Patient with high blood pressure during this ER visit?: No
Discharge Problem:
Abdominal pain
Instructions: Abdominal Pain
Prescriptions:
New
alum-mag hydroxide-simeth [Maalox Advanced] 200-200-20 mg/5 mL suspension
10 ml PO QID PRN (Reason: dyspepsia) Qty: 1000 0RF
No Action
omeprazole 40 MG capsule,delayed release(DR/EC)
40 mg PO DAILY
zolpidem 10 MG tablet
10 mg PO HSPRN PRN (Reason: sleep)
Patient Comments:
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
famotidine 20 MG tablet
20 mg PO DAILYPRN PRN (Reason: reflux)
alprazolam [Xanax] 1 mg Tablet
2 mg PO HS
Patient Comments:
patient warp picker on 04/24/24 #90
sertraline 100 mg Tablet
200 mg PO DAILY
hydrocodone-acetaminophen 10-325 mg Tablet
2 tab PO TID
bupropion HCl [Wellbutrin XL] 150 mg Tablet Extended Release 24 Hr
150 mg PO DAILY
Repatha SureClick 140 mg/mL Pen Injector
140 mg SC Q2W
fenofibrate nanocrystallized 145 mg Tablet
145 mg PO DAILY Qty: 30 0RF
lisinopril 40 mg Tablet
40 mg PO DAILY
ondansetron 4 mg tablet,disintegrating
4 mg PO Q8HPRN PRN (Reason: nausea and vomiting)
fentanyl 75 mcg/hr Patch 72 Hour
1 patch TRANSDERMAL Q72H
aspirin 81 mg Capsule
81 mg PO DAILY
Referrals:
Lance Nina DO [Family Provider] -
Interventions
Interventions:
*Risk Screen - Suicide Last Done: 03/27/25 04:02
*General Assessment Last Done: 03/27/25 04:02
*Neglect/Abuse Screening Last Done: 03/27/25 04:02
*ED- Fall Risk Assessment Last Done: 03/27/25 04:02
UR-Ndvdms-Mgsatnicso Assessment Last Done: 03/27/25 05:43
Discharge Date and Time
Print Language: GEORGIAN
[2025-03-27] MEDS: MAALOX 50 PO (08:55)
[2025-03-27] MEDS: OMNIPAQUE 50 ML PO (08:55)
[2025-03-27 09:41] LABS: Troponin I 0.016 ng/ml
[2025-03-27 10:53] VITALS: BP 117/67
== END 2025-03-27 12:51 | disposition home or self-care (01) ==
LOC: EMR 03:59
PROVIDERS: Emergency Medicine; Physician Assistant Medical; EMERGENCY PHYSICIAN Student in an Organized Health Care Education/Training Program; FAMILY PHYSICIAN Family Medicine
DX: R10.10 Upper abdominal pain, unspecified (principal); I10 Essential (primary) hypertension; E78.00 Pure hypercholesterolemia, unspecified; F17.210 Nicotine dependence, cigarettes, uncomplicated; Z86.73 Personal history of transient ischemic attack (TIA), and cerebral infarction without residual deficits
CPT/HCPCS: 99285; 74176; 80053; 83690; 84484; 85025; 93005

== ENCOUNTER 2025-05-27 20:52 | Emergency (ER) | payer BC, SELFPAY ==
[2025-05-27 20:59] VITALS: BP 140/90
[2025-05-27 21:27] LABS: ALT (SGPT) 14 U/L (0-35); AST (SGOT) 18 U/L (14-36); Albumin 4.3 g/dl (3.5-5.0); Alkaline Phosphatase 49 U/L (38-126); Blood Urea Nitrogen 21 mg/dl (7-17); Calcium 9.7 mg/dl (8.4-10.2); Carbon Dioxide 21 mmol/L (22-30); Chloride 108 mmol/L (98-107); Glucose 140 mg/dl (70-99); Potassium 4.5 mmol/L (3.5-5.1); Sodium 138 mmol/L (135-145); Total Protein 7.0 g/dl (6.3-8.2); eGFR 44.43
[2025-05-27 21:28] LABS: Lipase 778 U/L (23-300)
[2025-05-27 21:39] LABS: Hematocrit 37.3 % (37.0-47.0); Hemoglobin 12.6 g/dL (12.0-16.0); Mean Corp Hgb Conc. 33.8 g/dL (33.0-37.0); Mean Corpuscular Volume 91.9 fL (81.0-99.0); Nucleated Red Blood Cells % 0 %; Platelet Count 359 10^3/uL (130-400); Red Cell Dist. Width 15.5 % (11.5-14.5)
--- NOTE | 2025-05-28 00:54 | ED.GENMED ---
History of Present Illness
General
Chief Complaint: Abdominal Pain
Source: patient
Time Seen by Provider: 05/28/25 00:19
History of Present Illness
History of Present Illness:
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 The pain is located in the epigastric area and
radiating around, not through, her back. She notes nausea without vomiting. This was partially relieved with Zofran. She denies fever, chills, chest pain, shortness of breath, lower abdominal pain, urinary symptoms, lower back pain, bleeding, or
other complaints. Patient currently takes Vicodin 10 mg 6 tablets a day as well as fentanyl patch 75 mics. She did discontinue the fentanyl patch recently because it made her feel 'weird and itchy', but she then resumed it under her doctor's
recommendations yesterday.
Past History
Past History
ED Past Medical History: CVA (TIA), HTN, Hypercholesterolemia, Psychiatric (Anxiety, Depression, ) and Other (Migraine headache, diverticulosis, pancreatitis, Ovarian cyst, )
ED Past Surgical History: Appendectomy, Cholecystectomy, Gynecological and Other (Hernia, )
Social History
Tobacco: Smoker
Alcohol: Chronic alcoholic (Since her Pancreatitis)
Drug: None
Personal:
Living: with family
Employment: Not employed
Family History
Family History: Hypertension and Other (father with brain tumor)
Phy Exam
Physical Exam
Physical Exam:
GENERAL: Alert , in no apparent distress
EYE: pupils equal and reactive
NECK: Supple, no significant adenopathy.
ENT: o/p clr, mmm.
CARDIAC: Regular rate and rhythm .
LUNGS: Clear breath sounds bilaterally, no acute respiratory distress, no wheezes/rales/rhonchi
ABDOMEN: Soft, mild to moderate upper abdominal tenderness, no r/g, no cvat
NEUROLOGICAL: Alert and oriented, no focal neuro deficits
SKIN: Warm and dry, skin intact.
MUSCULOSKELETAL: No edema, well perfused.
PSYCH: Normal and appropriate interaction.
Course
Orders/Labs/Results
Orders:
Orders
05/27/25 20:58
Acetaminophen Urgent
Comment: ADD ON
Complete Blood Count/With Diff Urgent
Comprehensive Metabolic Panel Urgent
Lipase Urgent
05/28/25 00:53
US Abdomen Complete/Upper Urgent
Comment:
Reason For Exam: hx pancreatitis, pain
05/28/25 00:54
Hydrocodone 7.5/APAP 325 [[place] 7.5/325] 2 tablet PO NOW STA
05/28/25 00:58
Add On- LAB Urgent
Tests Added?: acetaminophen
05/28/25 05:11
0.9% Sodium Chloride 500 ml [Nss] 500 ml IV BOLUS
HYDROmorphone [Dilaudid] 0.5 mg IV NOW STA
Abnormal Lab Results
05/27/25
20:58
RBC 4.06 L 10^6/uL
(4.20-5.40)
RDW 15.5 H %
(11.5-14.5)
Chloride 108 H mmol/L
(98-107)
Carbon Dioxide 21 L mmol/L
(22-30)
BUN 21 H mg/dl
(7-17)
Creatinine 1.4 H mg/dL
(0.6-1.0)
Glucose 140 H mg/dl
(70-99)
Lipase 778 H U/L
(23-300)
Acetaminophen < 10 L ug/ml
(10-30)
05/27/25 20:58
05/27/25 20:58
Vital Signs
Initial and Last Documented VS:
Initial Vital Signs
Temp Pulse Resp BP Pulse Ox
98.5 F 99 16 140/90 99
05/27/25 20:59 05/27/25 20:59 05/27/25 20:59 05/27/25 20:59 05/27/25 20:59
Last Documented Vital Signs
Temp Pulse Resp BP Pulse Ox
98.5 F 86 16 142/75 99
05/27/25 20:59 05/28/25 05:11 05/28/25 05:11 05/28/25 05:11 05/28/25 05:11
*Pulse Oximetry
SaO2: 99
Oxygen Mode of Delivery: Room air
Update Note
Update Note:
Patient presents to the Emergency Department with _abdominal pain
Number and Complexity of Problems Addressed at the Encounter
� Chronic conditions affecting care:
� Acute Exacerbation and/or Progression of Chronic Illness:
� Differential Diagnosis includes: But not limited to CBD stone, recurrent pancreatitis, hepatitis, kidney stone, etc. etc.
Amount and/or Complexity of Data to be Reviewed and Analyzed
� I performed an independent evaluation of and my interpretation is:
EKG:
CT:
Xrays:
Laboratory Studies: BUN and creatinine abnormalities are baseline for patient, mild hyperglycemia, normal white blood cell count, normal LFTs. Lipase is newly elevated at 778
Other: Vision report, ultrasound consistent with cholecystectomy, CBD 11 mm consistent with postcholecystectomy state. Limited view of the pancreas shows mild prominence of the pancreatic duct up to 3 mm no other findings of
concern. Left renal simple cysts, no hydro. Visualized abdominal aorta and IVC are normal, spleen unremarkable, mild hepatic steatosis.
� Review of other/old records reveals:
� Clinical information was obtained by an independent historian:
� Prescriptions/Medications Considered but not given:
� Further testing considered but not performed:
Risk of Complications and/or Morbidity or Mortality of Patient Management
� Social determinants of health affecting care:
� Discussion with other providers (PCP, Hospitalists, Consultants, etc):
� Escalation of care including admission/observation vs risk of discharge considered: No patient denies taking more than the prescribed 6 tablets of Vicodin per day. Prior studies note that patient had mid CBD narrowing
suggestive of potential stricture. She is due for an endoscopy and ultrasound on Saturday with her GI doctor.
549AM Multiple bedside reassessments by me, pt has remained comfortable and slept for some of her stay here. W/u d/w pt...no new findigns to suggest acute urgent dx. She does have mild elevation in lipase without assoc repeated vomiting,
dehydration, etc. Pt would like to go home, pending IVF and a dose of pain meds. D/w her import of f/u and reasons to rted.
ED Attending Note
-
Portions of this chart may have been created with voice recognition software.� Occasional wrong word or��sound alike� substitutions may have occurred due to the inherent limitations of voice recognition software.
Discharge Plan
Departure
Patient Disposition: Home (Routine Discharge)
Date of Disposition: 05/28/25
Time of Disposition: 06:04
Patient with high blood pressure during this ER visit?: Yes
Condition: Good
Discharge Problem:
Abdominal pain
Instructions: Abdominal Pain, BLOOD PRESSURE
Prescriptions:
No Action
omeprazole 40 MG capsule,delayed release(DR/EC)
40 mg PO DAILY
zolpidem 10 MG tablet
10 mg PO HSPRN PRN (Reason: sleep)
Patient Comments:
patient miner pick on 01/07/24 #30
famotidine 20 MG tablet
20 mg PO DAILYPRN PRN (Reason: reflux)
alprazolam [Xanax] 1 mg Tablet
2 mg PO HS
Patient Comments:
patient [place]er pick on 04/24/24 #90
sertraline 100 mg Tablet
200 mg PO DAILY
hydrocodone-acetaminophen 10-325 mg Tablet
2 tab PO TID
bupropion HCl [Wellbutrin XL] 150 mg Tablet Extended Release 24 Hr
150 mg PO DAILY
Repatha SureClick 140 mg/mL Pen Injector
140 mg SC Q2W
fenofibrate nanocrystallized 145 mg Tablet
145 mg PO DAILY Qty: 30 0RF
lisinopril 40 mg Tablet
40 mg PO DAILY
ondansetron 4 mg tablet,disintegrating
4 mg PO Q8HPRN PRN (Reason: nausea and vomiting)
fentanyl 75 mcg/hr Patch 72 Hour
1 patch TRANSDERMAL Q72H
aspirin 81 mg Capsule
81 mg PO DAILY
alum-mag hydroxide-simeth [Maalox Advanced] 200-200-20 mg/5 mL suspension
10 ml PO QID PRN (Reason: dyspepsia) Qty: 1000 0RF
Referrals:
Lance Nina DO [Family Provider, Family Practice]
Activity Restrictions/Additional Instructions:
PLEASE CONTACT YOUR GI DOCTOR TODAY REGARDING FURTHER EVALUATION AND FOLLOW UP. IF YOU DEVELOP INCREASING/NEW PAIN, FEVER, REPEATED VOMITING, BLEEDING, TROUBLE BREATHING, CHEST PAIN, OR OTHER WORRISOME SIGNS, GO TO THE ER IMMEDIATELy!
Interventions
Interventions:
*Risk Screen - Suicide Last Done: 05/27/25 20:59
*General Assessment Last Done: 05/28/25 01:20
*Neglect/Abuse Screening Last Done: 05/27/25 20:59
*ED- Fall Risk Assessment Last Done: 05/27/25 20:59
AR-Ucdulz-Kcqbnbzrhk Assessment Last Done: 05/28/25 01:20
Discharge Date and Time
Print Language: OMANI
[2025-05-28 01:00] VITALS: BP 150/63
[2025-05-28] MEDS: NORCO 7.5/325 2 TABLET PO (01:20)
[2025-05-28 01:33] LABS: Acetaminophen < 10 ug/ml (10-30)
[2025-05-28 02:00] VITALS: BP 155/92
[2025-05-28 05:07] VITALS: BP 142/75
[2025-05-28 05:11] VITALS: BP 142/75
[2025-05-28] MEDS: NSS 500 IV (05:18)
[2025-05-28] MEDS: DILAUDID 0.5 MG IV (05:18)
[2025-05-28 06:19] VITALS: BP 144/75
== END 2025-05-28 06:41 | disposition home or self-care (01) ==
LOC: EMR 20:52
PROVIDERS: Emergency Medicine; EMERGENCY PHYSICIAN Emergency Medicine; FAMILY PHYSICIAN Family Medicine
DX: R10.13 Epigastric pain (principal); E78.00 Pure hypercholesterolemia, unspecified; I10 Essential (primary) hypertension; Z86.73 Personal history of transient ischemic attack (TIA), and cerebral infarction without residual deficits; F17.200 Nicotine dependence, unspecified, uncomplicated; Z90.49 Acquired absence of other specified parts of digestive tract
CPT/HCPCS: 99284; 96374; 76700; 80053; 80143; 83690; 85025

== ENCOUNTER 2025-06-01 06:16 | Day surgery (SDC) | payer BC, SELFPAY ==
[2025-06-01 13:00] VITALS: BP 148/76
[2025-06-01 13:10] VITALS: BMI 23.1
[2025-06-01 13:12] VITALS: BMI 23.1
[2025-06-01 16:37] VITALS: BP 129/81
[2025-06-01 16:45] VITALS: BP 153/89
[2025-06-01 17:00] VITALS: BP 100/84
== END 2025-06-01 17:22 | disposition home or self-care (01) ==
LOC: GI 06:16
PROVIDERS: ATTENDING PHYSICIAN Internal Medicine Gastroenterology
DX: R10.13 Epigastric pain (principal); K31.89 Other diseases of stomach and duodenum; K29.60 Other gastritis without bleeding; K85.90 Acute pancreatitis without necrosis or infection, unspecified; K86.9 Disease of pancreas, unspecified; R93.3 Abnormal findings on diagnostic imaging of other parts of digestive tract; K83.8 Other specified diseases of biliary tract
CPT/HCPCS: 43237; 43239; 88305; 88342

== ENCOUNTER 2025-06-02 15:16 | Inpatient (IN) | payer BC, SELFPAY ==
[2025-06-02] VITALS (8 sets, daily range): BP systolic 157–183; BP diastolic 72–99; BMI 23.2; BMI 23.1
--- NOTE | 2025-06-02 11:20 | ED.GENMED ---
History of Present Illness
General
Chief Complaint: Abdominal Symptoms
Source: patient and records
Exam Limitations: none
Time Seen by Provider: 06/02/25 11:17
History of Present Illness
History of Present Illness:
54yoF with a history of hypertension, hyperlipidemia, prior CVA, chronic pancreatitis, chronic pain related to a muscle disorder on [place] 20mg TID presenting for evaluation of abdominal pain. Patient underwent an endoscopy yesterday. She had an
episode of vomiting after returning home which contained dark brown chunks. No further episodes of vomiting. She is presenting with pain in her upper abdomen which radiates to the back. Pain feels like a 'gaping hole' in her abdomen. Pain was
not relieved after taking Holly. She was seen in the ED on 05/28/25 for similar complaints but her current pain is much worse. She has not had any bowel movements since the endoscopy. She denies any chest pain, fevers, diarrhea, urinary symptoms.
Endoscopy and upper endoscopic ultrasound yesterday with Dr. Jiang. Endoscopy showed erythematous mucosa in the gastric body. Enlarged gastric folds and erythematous duodenopathy. Several biopsies were taken.
Past History
Past History
ED Past Medical History: CVA (TIA), HTN, Hypercholesterolemia, Psychiatric (Anxiety, Depression, ) and Other (Migraine headache, diverticulosis, pancreatitis, Ovarian cyst, )
ED Past Surgical History: Appendectomy, Cholecystectomy, Gynecological and Other (Hernia, )
Social History
Tobacco: Smoker
Alcohol: Chronic alcoholic (Since her Pancreatitis)
Drug: None
Personal:
Living: with family
Employment: Not employed
Family History
Family History: Hypertension and Other (father with brain tumor)
Phy Exam
Physical Exam
Physical Exam:
Appears uncomfortable, non-toxic
General Physical Exam
General Presentation: well appearing
General Skin: warm and dry
General Habitus: normal
General Mental: alert
ENT Exam
ENT Exam: normocephalic
Cardiovascular Exam
Cardiovascular Exam: regular rate/rhythm
Pulmonary Exam
Pulmonary Exam: lungs clear, no respiratory distress, no rales, no crackles, no rhonchi and no wheezing
Gastrointestinal Exam
Gastrointestinal Exam: soft, non distended and other (+Tenderness throughout upper abdomen with voluntary guarding)
Neurological Exam
Neurological Exam: alert
[place] Coma Scale
Eye Opening: Spontaneous
Verbal Response: Oriented
Motor Response: Obeys Commands
GCS Total Score: 15
Skin Exam
Skin Exam: normal color and warm/dry
Psychiatric Exam
Psychiatric Exam: normal mood/affect
Course
Orders/Labs/Results
Orders:
Orders
06/02/25 Breakfast
NPO
Allow oral meds: Yes
Allow clear liquids: No
06/02/25 11:11
EKG [Electrocardiogram (*1)] Urgent
Reason for Study: Abdominal Pain
Other Reason for Exam: vomited blood
06/02/25 11:12
EKG- Treatment ONCE
06/02/25 11:28
CT Abd/pelvis W Iv Cont Urgent
Comment:
Reason For Exam: upper abd pain, endoscopy yesterday
0.9% Sodium Chloride 1000 ml [Nss] 1,000 ml IV BOLUS
HYDROmorphone [Dilaudid] 1 mg IV NOW STA
CR Chest - 2 Views Urgent
Comment:
Reason For Exam: SOB
06/02/25 11:32
Pantoprazole [Protonix IV] 40 mg IV NOW STA
06/02/25 11:40
Complete Blood Count/With Diff Urgent
Comprehensive Metabolic Panel Urgent
Lactate Level [Lactic Acid] Urgent
Lipase Urgent
PTT Urgent
Prothrombin Time Urgent
Troponin I Urgent
06/02/25 11:42
Ondansetron Injectable [Zofran] 4 mg IV NOW STA
06/02/25 14:13
HYDROmorphone [Dilaudid] 1 mg IV NOW STA
06/02/25 14:18
0.9% Sodium Chloride 1000 ml [Nss] 1,000 ml IV BOLUS
06/02/25 14:50
Admit/Transfer Patient As Directed
Co-Sign Provider:
Level of Care: Inpatient admission
Assign to:: Medical/Surgical
Physician / Group: brandi
Diagnosis: pancreatitis
Reason for Hospitalization: pancreatitis
Expected length of stay greater than two midnights?: Yes
ELOS- Estimated Length of Stay in days: 3
I certify the patient meets the requirements for IP care: Yes
06/02/25 14:51
PRN Pain Medication Management As Directed
May give lesser potent ordered pain med per pt: Yes
preference::
Protocol:: Medication orders for pain may be administered in a
manner that supports deferring to patient preference
when the pt is:
- Requesting an ordered lesser potent pain medication.
Least to most potent pain medications are defined
as: acetaminophen < NSAID < tramadol < opioids
(morphine, oxycodone, hydromorphone).
- Requesting a lesser dose of the same medication IF
ORDERED.
- Requesting a less intrusive route of administration
if both routes are prescribed by the provider (PO <
IV).
06/02/25 14:52
Code Status As Directed
Resuscitation Status: Full Code
06/02/25 15:15
GASTROINTESTINAL CONSULT Routine
Consulting Provider: Debbie Chavez
Was physician already notified: Yes
06/02/25 15:58
0.9% Sodium Chloride 1000 ml [Nss] 1,000 ml IV 250 mls/hr
HYDROmorphone [Dilaudid] 1 mg IV Q3HPRN PRN
Nicotine [Nicoderm Transdermal] 21 mg TRANSDERM DAILY
06/02/25 15:58
Activity As Directed
Activity Level: As Tolerated
Intake/ Output As Directed
Frequency: Per unit guidelines
Vital Signs As Directed
Frequency: Per unit guidelines
DX Deep Vein Thrombosis Video Routine
06/02/25 16:23
Alcohol Urgent
Triglycerides Urgent
Comment: If not done in the ED
06/02/25 18:00
Enoxaparin Sodium [Lovenox] 40 mg SC QPM
06/02/25 22:00
Alprazolam [Xanax] 2 mg PO HS
Famotidine [Pepcid] 20 mg PO HS
06/03/25 06:00
Amylase IN AM
C-Reactive Protein IN AM
Cardiovascular Evaluation IN AM
Is patient fasting: Yes
Lipase IN AM
06/03/25 08:00
Aspirin Low Dose EC [Aspir Low (Enteric Coated)] 81 mg PO DAILY
Bupropion(24Hr)Extended Releas [WELLBUTRIN XL (24 hour extended release)] 150 mg PO DAILY
Fenofibrate 145 [Tricor] 145 mg PO DAILY
Olmesartan Medoxomil [Benicar] 40 mg PO DAILY
Pantoprazole [Protonix] 40 mg PO DAILY
Sertraline HCl [Zoloft] 200 mg PO DAILY
vortioxetine [Trintellix] 5 mg PO DAILY
Abnormal Lab Results
06/02/25
11:40
RBC 4.00 L 10^6/uL
(4.20-5.40)
Hct 36.3 L %
(37.0-47.0)
RDW 15.2 H %
(11.5-14.5)
Chloride 110 H mmol/L
(98-107)
Carbon Dioxide 20 L mmol/L
(22-30)
Creatinine 1.1 H mg/dL
(0.6-1.0)
Glucose 175 H mg/dl
(70-99)
Lipase 416 H U/L
(23-300)
06/02/25 11:40
06/02/25 11:40
Vital Signs
Initial and Last Documented VS:
Initial Vital Signs
Temp Pulse Resp BP Pulse Ox
99 F 113 20 157/88 99
06/02/25 11:11 06/02/25 11:11 06/02/25 11:11 06/02/25 11:11 06/02/25 11:11
Last Documented Vital Signs
Temp Pulse Resp BP Pulse Ox
98.4 F 72 18 167/86 97
06/02/25 15:49 06/02/25 15:49 06/02/25 15:49 06/02/25 15:49 06/02/25 15:49
MDM/Problems Addressed
Differential Diagnosis Includes:
54yoF here with severe upper abd pain. S/p endoscopy yesterday. Had 1 episode of vomiting last night that appeared dark brown. Hx of chronic pancreatitis and alcohol use. She appears uncomfortable but is non-toxic. Voluntary guarding on abdominal
exam. Differential diagnosis includes but is not limited to: pancreatitis, gastritis, choledocholithiasis, GI bleed, ACS
Initial ED plan: Check abdominal labs, troponin/EKG, lactate, coags, and CT abdomen. IV Dilaudid, Zofran, and fluid bolus for symptoms.
*Pulse Oximetry
SaO2: 99
Oxygen Mode of Delivery: Room air
Patient hypoxic: no (99%)
*Critical Care Note
Total Time (30-74mins, 75-104mins- exclusive of procedures): Not Applicable
Update Note
Update Note:
Labs reveal a lipase around 400 which has improved from 700s last week. CT shows evidence of pancreatitis with probable small developing pseudocysts. Patient requiring multiple doses of Dilaudid for pain control. Will admit for further management.
ED Attending Note
-
Portions of this chart may have been created with voice recognition software.� Occasional wrong word or��sound alike� substitutions may have occurred due to the inherent limitations of voice recognition software.
Discharge Plan
Departure
Patient Disposition: Admit
Date of Disposition: 06/02/25
Time of Disposition: 14:21
Presentation/result/management discussed w/ accepting MD/DO: Hospitalist
Discharge Problem:
Pancreatitis
Interventions
Interventions:
*Risk Screen - Suicide Last Done: 06/02/25 11:26
*General Assessment Last Done: 06/02/25 11:26
*Neglect/Abuse Screening Last Done: 06/02/25 11:26
*ED- Fall Risk Assessment Last Done: 06/02/25 11:26
*ED COVID-19 Vaccine History Last Done: 06/02/25 11:26
TC-Tdnzll-Wemlpdogdd Assessment Last Done: 06/02/25 11:24
[2025-06-02] MEDS: PROTONIX IV 40 MG IV (11:45)
[2025-06-02] MEDS: NSS 1000 IV ×4 (11:45→21:17)
[2025-06-02] MEDS: ZOFRAN 4 MG IV ×2 (11:45→18:43)
[2025-06-02] MEDS: DILAUDID 1 MG IV ×4 (11:46→22:04)
[2025-06-02 11:52] LABS: Hematocrit 36.3 % (37.0-47.0); Hemoglobin 12.2 g/dL (12.0-16.0); Mean Corp Hgb Conc. 33.6 g/dL (33.0-37.0); Mean Corpuscular Volume 90.8 fL (81.0-99.0); Nucleated Red Blood Cells % 0 %; Platelet Count 383 10^3/uL (130-400); Red Cell Dist. Width 15.2 % (11.5-14.5)
[2025-06-02 12:03] LABS: ALT (SGPT) 15 U/L (0-35); AST (SGOT) 19 U/L (14-36); Albumin 4.3 g/dl (3.5-5.0); Alkaline Phosphatase 42 U/L (38-126); Blood Urea Nitrogen 14 mg/dl (7-17); Calcium 9.8 mg/dl (8.4-10.2); Carbon Dioxide 20 mmol/L (22-30); Chloride 110 mmol/L (98-107); Estimated Creatinine Clearance 62 ml/min; Glucose 175 mg/dl (70-99); Lipase 416 U/L (23-300); Potassium 3.8 mmol/L (3.5-5.1); Sodium 139 mmol/L (135-145); Total Protein 6.8 g/dl (6.3-8.2); eGFR 59.34
[2025-06-02 12:05] LABS: APTT 30.6 Sec (23.4-35.0); INR 0.93; PT 13.0 Sec (11.4-14.6)
[2025-06-02 12:14] LABS: Troponin I < 0.012 ng/ml
--- NOTE | 2025-06-02 14:30 | HPS.HSE ---
Family Physician
-
Family Physician: Lance Nina
Chief Complaint
-
Abdominal pain
History of Present Illness
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 she had abdominal pain since last Saturday. her
pain got worse after EGD yesterday. She had an episode of vomiting after returning home which contained dark brown chunks. No further episodes of vomiting. She is presenting with pain in her upper abdomen which radiates to the mid back and the
side of her back. Pain feels like a 'gaping hole' in her abdomen. Pain was not relieved after taking Vicodin. She was seen in the ED on 05/28/25 for similar complaints but her current pain is worse. She has not had any bowel movements for past
few days. denied dysuria or hematuria. denied BHAT, dizzy or syncope. denied fever, chills,chest pain, sob. denied abdominal pain,n,v,d.
Endoscopy and upper endoscopic ultrasound yesterday with Dr. Jiang. Endoscopy showed erythematous mucosa in the gastric body. Enlarged gastric folds and erythematous duodenopathy. Several biopsies were taken.
Medical History
Past Medical History
Past Medical History: Reports Other
Additional Past Medical History:
GERD without esophagitis
Hypertension
Hyperlipidemia
Hypertriglyceridemia depression
Mitochondrial myopathy
Type 2 diabetes
Depression,, bile duct stricture
Acute tubular
Hypocalcemia
Bradycardia
ADHD
CVA
Past Surgical History: Reports Other
Additional Past Surgical History:
Cholecystectomy
Social History
Tobacco: Smoker
Alcohol: Occasional
Drug: None
Family History
Family History: Not pertinent
Allergies / Home Medications
Allergies reflects when Allergies were last updated in [employer]
Home Medications with original date entered in [employer]
Allergy/Medication List:
Allergies
Allergy/AdvReac Type Severity Reaction Status Date / Time
levofloxacin (From Levaquin) Allergy joint Verified 06/02/25 11:11
swelling
prednisone (Prednisone) Allergy joint Verified 06/02/25 11:11
swelling
steri strips Allergy Rash Uncoded 06/02/25 11:11
Home Medications
omeprazole 40 mg capsule,delayed release 40 mg PO DAILY Gastrointestinal issue 12/20/19
famotidine 20 mg tablet 20 mg PO HS 05/06/20
alprazolam 1 mg tablet (Xanax) 2 mg PO HS Mental Health/Anxiety 06/26/23
bupropion HCl 150 mg 24 hr tablet, extended release (Wellbutrin XL) 150 mg PO DAILY Mental Health/Anxiety 06/26/23
evolocumab 140 mg/mL subcutaneous pen injector (Repatha SureClick) 140 mg SC Q2W Autoimmune Disorder 06/26/23
hydrocodone 10 mg-acetaminophen 325 mg tablet 2 tab PO TID 06/26/23
sertraline 100 mg tablet 200 mg PO DAILY Mental Health/Anxiety 06/26/23
fenofibrate nanocrystallized 145 mg tablet 145 mg PO DAILY High cholesterol #30 tabs 06/29/23
aspirin 81 mg tablet,delayed release 81 mg PO DAILY 06/02/25
olmesartan 40 mg tablet (Benicar) 40 mg PO DAILY 06/02/25
ondansetron HCl 4 mg tablet 4 mg PO Q6HPRN PRN nausea 06/02/25
vortioxetine 5 mg tablet (Trintellix) 5 mg PO DAILY 06/02/25
Review of Systems
-
Constitutional: Reports No Symptoms
EENT: Reports No Symptoms
Respiratory: Reports No Symptoms
Cardiac: Reports No Symptoms
Abdomen/GI: Reports Abdominal Pain, Nausea and Vomiting
: Reports No Symptoms
Musculoskeletal: Reports No Symptoms
Skin: Reports No Symptoms
Neurological: Reports No Symptoms
Endocrine: Reports No Symptoms
Hematologic/Lymphatic: Reports No Symptoms
Psych: Reports No Symptoms
Physical Exam
Vital Signs
Vital Signs
Temp Pulse Resp BP Pulse Ox
98.6 F 77 22 163/92 97
06/02/25 12:00 06/02/25 13:00 06/02/25 13:00 06/02/25 13:00 06/02/25 13:00
Physical Exam
General: Well Developed, Well Nourished and No Apparent Distress
HEENT: NormoCephalic, Moist mucous membranes and Atraumatic
Respiratory: Clear
Cardiac: S1/S2 and Regular Rhythm; No Murmur or Rub
GI: Soft, Non Distended, Normal Bowel Sounds and Tender; No Organomegaly
Rectal: Deferred by Provider
Musculoskeletal: No Clubbing, No Cyanosis and No Edema
Skin: No Rash
Neuro: AO x 3 and Nonfocal/grossly intact
Psych: Calm
Laboratory Results
-
06/02/25 11:40
06/02/25 11:40
Laboratory Results
PT 13.0 Sec (11.4-14.6) 06/02/25 11:40
INR 0.93 06/02/25 11:40
APTT 30.6 Sec (23.4-35.0) 06/02/25 11:40
Lactic Acid 2.0 mmol/L (0.7-2.0) 06/02/25 11:40
Total Bilirubin 0.4 mg/dl (0.2-1.3) 06/02/25 11:40
AST 19 U/L (14-36) 06/02/25 11:40
ALT 15 U/L (0-35) 06/02/25 11:40
Alkaline Phosphatase 42 U/L (38-126) 06/02/25 11:40
Troponin I < 0.012 ng/ml 06/02/25 11:40
Lipase 416 U/L (23-300) H 07/23/25 11:40
Data Reviewed
-
CT Scan: Report Reviewed by me
Lab Data: Labs Reviewed by me
Impression/Plan
-
# acute on chronic Pancreatitis
-CT shows pancreatitis with probable small developing pseudocysts.
- Dilaudid as needed for pain
- Keep patient n.p.o.
- Fluids continued
- Continue to monitor lipase
- Lipase 460
- Chest x-ray with no acute cardiopulmonary process
- CT abdomen pelvis with impression of Inflammation centered at the head of the pancreas most suspicious for pancreatitis. Recommend correlation with lipase levels. Probable small developing pseudocysts of the pancreatic head/neck and posterior
pancreatic body.
# Chronic stage IIIb
- Creatinine 1.1, continue to monitor
# Hyperlipidemia normally on Repatha and fenofibrate
# History of CVA--aspirin and lipid management
# Anxiety and depression-continue Xanax sertraline, Wellbutrin
# GERD-continue PPI
# Hypertension-continue olmesartan
# Chronic pain-narcotic dependent on Vicodin takes 20 mg every 8 hours
# Active smoker-cessation counseling/nicotine patch
# DVT prophylaxis-Lovenox
--- NOTE | 2025-06-02 15:15 | W.PN.UPDATE ---
Update Note
Progress Note Update
This is an addendum to H&P written by HARVEST MANAGER Annemarie Ocampo
I saw and examined the patient.
The HARVEST MANAGER's note was reviewed and I agree with the note.
Comment:
Ms. Martine Lala is a 54 yo woman with hx TIA, HLD, anxiety/depression, chronic pancreatitis, s/p EGD and EUS yesterday presents to the ER with vomiting and abdominal pain post EGD.
Triage VS: T 99, P 113, RR 20, BP 157/88, SpO2 99%
On exam patient is in no acute distress, lung clear, mid-epigastric tenderness, no rebound or guarding
LABS: WBC 6.9, Hg 12.2, PLT 383, Na 139, K+ 3.8, CO2 20, BUN 14, Cr 1.1, Glucose 175, liver enzymes WNL
CXR 06/02/25
IMPRESSION:
No acute cardiopulmonary process.
ABDOMEN/PELVIS CT 06/02/25
IMPRESSION:
Inflammation centered at the head of the pancreas most suspicious for pancreatitis. Recommend correlation with lipase levels. Probable small developing pseudocysts of the pancreatic head/neck and posterior pancreatic body.
EGD from 06/01/25
Impression:
- Normal esophagus.
- Erythematous mucosa in the gastric body. Biopsied.
- Enlarged gastric folds. Biopsied.
- Erythematous duodenopathy.
EUS from 06/01/25 - indeterminate for chronic pancreatitis versus early chronic pancreatitis; pancreatic duct had a tortuous/ectatic appearance, dilation in CBD up to 10mm, no sign of significant pathology in the ampulla, no e/o significant pathology
in the left lobe of liver
Acute on Chronic Pancreatitis
-admit to med/surg
-GI consult
-NPO
-IVF
-pain control
hx TIA - PMP CERTIFIED PROJECT MANAGER aspirin
Chronic pain, opiate dependence
-patient on [place] TID at home
GERD - PPI
Anxiety/Depression
-PMP CERTIFIED PROJECT MANAGER Trintellix, Sertraline, Wellbutrin, Xanax
Remainder of plan per HARVEST MANAGER note
--- NOTE | 2025-06-02 16:19 | CON.GI ---
Addendum entered and electronically signed by Debbie Chavez DO 06/02/25 18:15:
Patient seen and examined independently of YINKA. I agree with her note with my additions below
Martine is a 54-year-old female with history of CVA, idiopathic myopathy, hepatic steatosis, pancreatic divisum, history of cholecystectomy, acute on chronic recurrent pancreatitis who continues to smoke with intermittent alcohol use. Yesterday
06/01/2025 she underwent endoscopic ultrasound with Dr. Jiang for her acute recurrent pancreatitis. She was recently here on 05/28/2025 and discharged from the emergency room because of similar abdominal pain she is on a fentanyl patch and Vicodin
outpatient. She comes back with similar pain that she describes as upper abdomen that radiates around both sides of her back.
EGD EUS showed thickened gastric folds and EUS showed indeterminate for chronic pancreatitis versus early chronic pancreatitis with pancreatic parenchymal abnormalities. Her pancreatic duct was also tortuous and ectatic in appearance and
hyperechoic rodriguez in the main pancreatic duct measuring 3 mm in diameter. No mention of pancreatic divisum but she is known to have an on prior MRI from January 2025. CT scan done today with IV contrast showed inflammation around the head of the
pancreas and potentially developing small pseudocysts in the pancreatic head and neck and posterior pancreatic body. Absent gallbladder stable dilated common bile duct of 13 mm.
Lipase in the 400s, normal CBC, creatinine 1.1, BUN 14, normal LFTs, triglycerides in the 200s, no alcohol detected.
Patient states she was vomiting some dark material before admission. Denies any constipation or rectal bleeding. 1 episode of loose stools last week. Not taking pancreatic enzymes.
Recurrent acute on chronic pancreatitis, followed by Dr. Jiang
-- Continues to smoke with intermittent alcohol use -needs absolute cessation of both
-- On narcotics as an outpatient
-- Clear liquids, pain control, IV fluids
-- DVT prophylaxis, Protonix
Original Note:
Consultation
-
Date/Time Consultation Requested: 06/02/25 1515
Date/Time Consultation Performed: 06/02/25 1615
Requesting Provider: YINKA Sinha
Performing Provider: YINKA Duvall, Debbie Chavez,
Reason for Consultation: pancreatitis
Medical History
Chief Complaint / HPI
Chief Complaint: abdominal pain
History of Present Illness:
Pt is a 53yo with hx CVA, migraines, depression, anxiety, idiopathic myopathy (with prior muscle biopsy), hepatic steatosis, migraines, diverticulitis, pre DM, pancreatic divisum and prior pseudocyst and prior ara around 2009. In reviewing
records hx pancreatitis initially in 2019. MRI at that time with small pseudocyst and pancreatic divisum. She had recurrence in [address] with 14 mm cystic lesion likely pseudocyst and MRI with 4.2 x 1.6 cm multilobulated cyst
posterior neck of pancreas, suggest pseudocyst. She completed EUS 09/2023-with Dr. Jiang Normal esophagus. no lesion in stomach, normal duodenum, normal MPD, pancreatic abnormality c/w diffuse echogenicity, stranding and hyper foci without cyst or
pseudocyst, dilation CBD 8 mm cystic lesion 16 x 70 mm left kidney and recommended ETOH and tobacco abstinence. At some point she went to Dr. Shi at [facility]-- recommended chronic pain management and Dr. Henderson at [facility] completed
PETH testing with elevation and recommended ETOH/tobacco abstinence. She had last admission in 2023 but has had multiple ER visit for abdominal pain. She had also had follow up with Dr. Jiang and completed 06/01 EGD with erythema, enlarged gastric
folds and erythematous duodenopathy and EUS with concern for chronic vs early pancreatitis with tortuous.ectatic panc duct, and hypoechoic wall of main panc duct. dilation of CBD 10mm no ampulaor left liver pathology no specimen collected.
Pt now presents with abdominal pain. She admits her pain was 6/10 last week then had vomiting some dark withy small clots with 9/10 pain prior to admission. She had pain meds then 4/10 when seen. She admits to slow wt loss over time but denies
dysphagia, GERD, diarrhea(except for 1 episode last week) constipation or rectal bleeding. She admits to continued tobacco use but cutting back and occasional ETOH use.
Past Medical History
Past Medical History: CVA, HTN, Hypercholesterolemia and Other (hepatic steatosis, migraines, diverticulitis, pre DM, ovarian cyst, ideopathic myopathy , insomnia, anxiety/depression, pancreatic divisum, pseudocyst)
Past Surgical History: Cholecystectomy, Gynecological (ovarian cyst surgery ) and Other (hernia repair )
Social History
Tobacco: Smoker (few cigarettes per day )
Alcohol: Occasional (1-3 drinks 3 times per week)
Drug: None
Personal:
Living: With Family
Employment: Not Employed
Family History
Family History: Other (no family hx pancreatitis, uncle with colon polyps, mother with colon polyps)
Allergies / Home Medications
Allergy/AdvReac Type Severity Reaction Status Date / Time
levofloxacin (From Levaquin) Allergy joint Verified 06/02/25 11:11
swelling
prednisone (Prednisone) Allergy joint Verified 06/02/25 11:11
swelling
steri strips Allergy Rash Uncoded 06/02/25 11:11
�Medication �Instructions �Recorded
omeprazole 40 mg capsule,delayed 40 mg PO DAILY Gastrointestinal 12/20/19
release issue
famotidine 20 mg tablet 20 mg PO HS 05/06/20
alprazolam 1 mg tablet (Xanax) 2 mg PO HS Mental Health/Anxiety 06/26/23
bupropion HCl 150 mg 24 hr tablet, 150 mg PO DAILY Mental 06/26/23
extended release (Wellbutrin XL) Health/Anxiety
evolocumab 140 mg/mL subcutaneous 140 mg SC Q2W Autoimmune Disorder 06/26/23
pen injector (Repatha SureClick)
hydrocodone 10 mg-acetaminophen 2 tab PO TID 06/26/23
325 mg tablet
sertraline 100 mg tablet 200 mg PO DAILY Mental 06/26/23
Health/Anxiety
fenofibrate nanocrystallized 145 145 mg PO DAILY High cholesterol 06/29/23
mg tablet #30 tabs
aspirin 81 mg tablet,delayed 81 mg PO DAILY 06/02/25
release
olmesartan 40 mg tablet (Benicar) 40 mg PO DAILY 06/02/25
ondansetron HCl 4 mg tablet 4 mg PO Q6HPRN PRN nausea 06/02/25
vortioxetine 5 mg tablet 5 mg PO DAILY 06/02/25
(Trintellix)
Review of Systems
-
History Source: Patient
Constitutional: Reports Weight Loss
EENT: Reports No Symptoms
Abdomen/GI: Reports Abdominal Pain (worse right sided ), Nausea, Vomiting and Diarrhea (x 1 last week)
: Reports No Symptoms
Musculoskeletal: Reports Other (chronic back pain )
Skin: Reports No Symptoms
Neurological: Reports Weakness
Endocrine: Reports No Symptoms
Hematologic/Lymphatic: Reports No Symptoms
Vital Signs
Temp Pulse Resp BP Pulse Ox
98.4 F 72 18 167/86 97
06/02/25 15:49 06/02/25 15:49 06/02/25 15:49 06/02/25 15:49 06/02/25 15:49
Physical Exam
Exam
General: Well Developed and Well Nourished
HEENT: Normocephalic and Anicteric
Respiratory: Clear
Cardiac: Regular Rhythm
GI: Soft, Non Distended and Tender (right sided )
Musculoskeletal: No Clubbing and No Cyanosis
Skin: Warm and Dry
Neuro: Awake, Alert and AO x 3
Psych: Calm
Results
WBC 6.9 10^3/uL (4.8-10.8) 06/02/25 11:40
Hgb 12.2 g/dL (12.0-16.0) 06/02/25 11:40
Hct 36.3 % (37.0-47.0) L 06/02/25 11:40
MCV 90.8 fL (81.0-99.0) 06/02/25 11:40
Plt Count 383 10^3/uL (130-400) 06/02/25 11:40
Absolute Neuts (auto) 4.3 10^3/uL (1.4-6.5) 06/02/25 11:40
PT 13.0 Sec (11.4-14.6) 06/02/25 11:40
INR 0.93 06/02/25 11:40
APTT 30.6 Sec (23.4-35.0) 06/02/25 11:40
Sodium 139 mmol/L (135-145) 06/02/25 11:40
Potassium 3.8 mmol/L (3.5-5.1) 06/02/25 11:40
Chloride 110 mmol/L (98-107) H 06/02/25 11:40
Carbon Dioxide 20 mmol/L (22-30) L 06/02/25 11:40
BUN 14 mg/dl (7-17) 06/02/25 11:40
Creatinine 1.1 mg/dL (0.6-1.0) H 06/02/25 11:40
Calcium 9.8 mg/dl (8.4-10.2) 06/02/25 11:40
Total Bilirubin 0.4 mg/dl (0.2-1.3) 06/02/25 11:40
AST 19 U/L (14-36) 06/02/25 11:40
ALT 15 U/L (0-35) 06/02/25 11:40
Alkaline Phosphatase 42 U/L (38-126) 06/02/25 11:40
Lipase 416 U/L (23-300) H 06/02/25 11:40
Diagnostic Image Results:
06/02/25- CT a/p
Inflammation centered at the head of the pancreas most suspicious for pancreatitis. Recommend correlation with lipase levels. Probable small developing pseudocysts of the pancreatic head/neck and posterior pancreatic body.
05/28/25- US abdomen
1. Status post cholecystectomy. Mild dilation of the common bile duct measures 1.1 cm in diameter, which may be within normal limits following cholecystectomy. Please correlate with serum bilirubin levels to exclude biliary obstruction.
2. No additional sonographic abnormalities demonstrated.
03/27/25 CT A/p
There is stranding and edema within the right upper quadrant adjacent to the distal stomach/proximal duodenum and pancreatic head. Findings may represent pancreatitis or gastritis/duodenitis possibly the setting of a small gastric ulcer Recommend
correlation with lipase.
Hepatic steatosis, similar to prior.
02/26/25 CT A/p IV only
Nonspecific inflammatory changes in the right upper quadrant between the head of the pancreas, duodenum, and along the course of the common bile duct. Etiology uncertain. Possible considerations include duodenitis, pancreatitis, or ascending
cholangitis. Mild distention of the common bile duct, 12 mm. No intrahepatic ductal dilatation.
Mild hepatomegaly with fatty infiltration.
05/26/24 CT A/p
Small multiloculated cystic lesion involving the head of the pancreas overall with slightly greater surrounding inflammatory changes in comparison with relative recent prior CT March 16, 2024. Findings most likely representing a pancreatic pseudocyst.
Superimposed changes of acute pancreatitis are also likely.. Recommend correlation with serum lipase.
Mild hepatomegaly with diffuse fatty liver.
Prior cholecystectomy. No findings to suggest biliary tract dilatation.
Simple left renal cyst and additional two subcentimeter low-attenuation left renal lesions too small to characterize.
02/02/25 MR Abdomen W/o & W Contrast
New 2.2 cm in length segment of narrowing involving the mid common bile duct suspicious for a developing stricture.
1.9 cm cystic lesion of the posterior pancreatic head, decreased in size compared to the abdominal MRI from 08/16/2023. Smaller 0.7 cm cystic focus in the anterior pancreatic head. Both are favored to represent pancreatic pseudocysts in the setting
of previous pancreatitis.
Severe hepatic steatosis and mild hepatomegaly.
03/16/24 CT A/p IV only
IMPRESSION: Within the visualized lower lungs, scattered linear and groundglass opacities, increased compared to CT scan of October 19 2023. This most likely represents atelectasis, but please correlate with any symptoms that would suggest
pneumonitis.
Multilobulated cystic mass within the head of the pancreas and extending superiorly adjacent to the caudate lobe of the liver as well as posterior to the lateral segment left lobe liver. This is likely a pseudocyst, which has increased in size
compared to examination October 19 2023.
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 There is also narrowing of the main portal vein as a result of this presumed pseudocyst.
Prior GI Procedures:
EGD: 2020 - - Tortuous esophagus - no visible erosions seen.
Biopsied
- Erythematous mucosa in the gastric body. Biopsied.
- Normal examined duodenum.
Colonoscopy: 2020- - One 9 mm polyp in the rectum, removed with a cold
snare. Resected and retrieved. tx TA
- Non-bleeding internal hemorrhoids
EUS 09/2023-with Dr. Jiang Normal esophagus. no lesion in stomach, normal duodenum, normal MPD, pancreatic abnormality c/w diffuse echogenicity, starnd and hypercheoic foci, dilation CBD 8 mm cystic lesion 16 x 70 mm left kidney
06/01/25 EGD - Normal esophagus.
- Erythematous mucosa in the gastric body. Biopsied.
- Enlarged gastric folds. Biopsied.
- Erythematous duodenopathy.
06/01/25 EUS
- Pancreatic parenchymal abnormalities consisting of hyperechoic
strands, hyperechoic foci with shadowing, diffusely increased
echogenicity and lobularity without honeycombing were noted in the
pancreatic head and genu of the pancreas. Overall this is
indeterminate for chronic pancreatitis vs early chronic pancreatitis.
- The pancreatic duct had a tortuous/ectatic appearance and had
hyperechoic rodriguez in the main pancreatic duct. The pancreatic duct
measured up to 3 mm in diameter.
- There was dilation in the common bile duct which measured up to
10 mm.
- There was no sign of significant pathology in the ampulla.
- There was no evidence of significant pathology in the left lobe
of the liver.
- No specimens collected.
Assessment / Plan
-
Pt is a 53yo with hx CVA, migraines, depression, anxiety, idiopathic myopathy (with prior muscle biopsy), hepatic steatosis, migraines, diverticulitis, pre DM, pancreatic divisum and prior pseudocyst and prior ara around 2009. In reviewing
records hx pancreatitis initially in 2019. MRI at that time with small pseudocyst and pancreatic divisum. She had recurrence in [address] with 14 mm cystic lesion likely pseudocyst and MRI with 4.2 x 1.6 cm multilobulated cyst
posterior neck of pancreas, suggest pseudocyst. She completed EUS 09/2023-with Dr. Jiang Normal esophagus. no lesion in stomach, normal duodenum, normal MPD, pancreatic abnormality c/w diffuse echogenicity, stranding and hyper foci without cyst or
pseudocyst, dilation CBD 8 mm cystic lesion 16 x 70 mm left kidney and recommended ETOH and tobacco abstinence. At some point she went to Dr. Shi at [place]-- recommended chronic pain management and Dr. Henderson at [facility] completed
PETH testing with elevation and recommended ETOH/tobacco abstinence. She had last admission in 2023 but has had multiple ER visit for abdominal pain. She had also had follow up with Dr. Jiang and completed 06/01 EGD with erythema, enlarged gastric
folds and erythematous duodenopathy and EUS with concern for chronic vs early pancreatitis with tortuous.ectatic panc duct, and hypoechoic wall of main panc duct. dilation of CBD 10mm no ampulaor left liver pathology no specimen collected. Pt
now presents with abdominal pain. She admits her pain was 6/10 last week then had vomiting some dark withy small clots with 9/10 pain prior to admission. She had pain meds then 4/10 when seen. She admits to slow wt loss over time but denies
dysphagia, GERD, diarrhea(except for 1 episode last week) constipation or rectal bleeding. She admits to continued tobacco use but cutting back and occasional ETOH use.
-abdominal pain with chronic pancreatitis-- current CT with inflammatory change with minimal lipase elevation
-s/p EGD/EUS 06/01
-prior imaging with multiloculated cytic lesion head of pancreas with inflammatory changes
-pancreatic divisum anatomy
-ETOH and Tobacco use
-wt loss
other medical problems:
-prior noted renal cyst on EUS 2022
-hepatomegaly
-CVA
-migraines
-depression/anxiety
-idiopathic myopathy
-hepatic steatosis
-migraines
-diverticulitis
-pre DM
-migraines
PLAN:
etiology of increased pain related to chronic pancreatitis, noted with pain prior GI procedure 06/01
cont pain control already with some improvement in ER
advance diet as tolerated -- consider clears if no further vomiting
stressed to patient need for complete ETOH and tobacco abstinence as pt admits to continued use
monitor for loose stools -- was on panc enzymes in past - no on current med list
consider OP pain management
-
-
Thank you for consultation and allowing me to participate in the patient's care. Please call the [facility] executive GI physician during the after hours with any questions or concerns.
[2025-06-02 16:47] LABS: Triglycerides 266 mg/dl (10-149)
[2025-06-02] MEDS: NICODERM TRANSDERMAL 21 MG TRANSDERM (16:58)
[2025-06-02] MEDS: LOVENOX 40 MG SC (18:24)
[2025-06-02 18:29] LABS: C-Reactive Protein 13.20 mg/L (0.0-10.00)
[2025-06-02] MEDS: PEPCID 20 MG PO (21:17)
[2025-06-02] MEDS: XANAX 2 MG PO (22:05)
[2025-06-03] MEDS: NSS 1000 IV ×4 (00:32→16:36)
[2025-06-03] MEDS: DILAUDID 1 MG IV ×5 (02:15→20:13)
[2025-06-03 06:00] VITALS: BMI 23.2
[2025-06-03] MEDS: ASPIR LOW (ENTERIC COATED) 81 MG PO (07:24)
[2025-06-03] MEDS: PROTONIX 40 MG PO (07:24)
[2025-06-03] MEDS: ZOLOFT 200 MG PO (07:24)
[2025-06-03] MEDS: NICODERM TRANSDERMAL 21 MG TRANSDERM (07:24)
[2025-06-03] MEDS: WELLBUTRIN XL (24 hour extended release) 150 MG PO (07:24)
[2025-06-03] MEDS: BENICAR 40 MG PO (07:24)
[2025-06-03] MEDS: TRICOR 145 MG PO (07:24)
[2025-06-03 07:32] VITALS: BP 149/78
[2025-06-03 07:38] LABS: Amylase 60 U/L (30-110); HDL Cholesterol 24 mg/dl; LDL Cholesterol, Calculated 0 mg/dl; Lipase 149 U/L (23-300); Very Low Density Lipoprotein 61 mg/dl (0-30)
[2025-06-03 07:40] LABS: C-Reactive Protein 12.00 mg/L (0.0-10.00)
[2025-06-03] MEDS: NORCO 5/325 2 TABLET PO ×3 (11:21→23:10)
[2025-06-03] MEDS: NON-FORMULARY ITEM 75 MG PO (11:22)
--- NOTE | 2025-06-03 13:38 | W.PN.HOSP.TC ---
Today's Communication/Plan
-
see note
Assessment / Plan
Assessment / Plan
1. Acute on chronic pancreatitis
- CT abd/pelvis showing pancreatitis with small developing pseudocysts
- Patient underwent EUS on 06/01 showing changes of chronic pancreatitis
- Patient continues to using alcohol and tobacco and likely aggravating further episodes
- Lipase was minimally elevated to 400s,
- Start patient on liquid diet and advance as tolerated
2. Chronic abdominal pain and narcotic dependence
- Unfortunately in setting of chronic pancreatitis with patient continues to drink/smoke causing aggravation of further symptoms
- Patient have undergone celiac ganglion block in the past
- Patient currently has been prescribed Vicodin/fentanyl by primary care physician although patient stopped using fentanyl due to concern of skin reaction
- Currently patient requiring IV Dilaudid in hospital, added Vicodin back
- Patient never followed up with pain specialist in the past, recommended to continue follow-up postdischarge as patient will require long-term pain control
3. Alcohol use disorder
Tobacco use
- Counseled on cessation
4. Chronic kidney stage IIIb
- Creatinine remains elevated to 1.1
- continue monitoring
Hyperlipidemia
History of stroke
Depression/Anxiety
Gastroesophageal reflux disease
Essential hypertension
DVT prophylaxis-Lovenox
Full code
Total time spent ; 54 mins
Anticipated Discharge: > 48 hours
Subjective/Interval History
-
Date of Service: June 03, 2025
Continues to complain having abdominal pain
No nausea or vomiting
No other major issues reported
Objective Data
-
Vital Signs:
Vital Signs
Temp Pulse Resp BP Pulse Ox
98.5 F 74 16 149/78 95
06/03/25 07:32 06/03/25 07:32 06/03/25 07:32 06/03/25 07:32 06/03/25 07:32
I&O
06/02/25 06/03/25 06/04/25
06:59 06:59 06:59
Intake Total 3960 / 3960
Balance 3960 / 3960
Review of Systems
-
Respiratory: Reports No Symptoms
Cardiac: Reports No Symptoms
Abdomen/GI: Reports No Symptoms
Physical Exam
-
Cardiac: Regular Rhythm and S1/S2
GI: Soft, Nontender and Tender
Neuro: Awake, Alert and Oriented
Psych: Calm
[2025-06-03 15:08] VITALS: BP 154/73
--- NOTE | 2025-06-03 15:35 | W.PN.GI.CBS2 ---
Today's Communication / Plan
-
low fat diet
Assessment / Plan
-
Pt is a 53yo with hx CVA, migraines, depression, anxiety, idiopathic myopathy (with prior muscle biopsy), hepatic steatosis, migraines, diverticulitis, pre DM, pancreatic divisum and prior pseudocyst and prior ara around 2009. In reviewing
records hx pancreatitis initially in 2019. MRI at that time with small pseudocyst and pancreatic divisum. She had recurrence in [address] with 14 mm cystic lesion likely pseudocyst and MRI with 4.2 x 1.6 cm multilobulated cyst
posterior neck of pancreas, suggest pseudocyst. She completed EUS 09/2023-with Dr. Jiang Normal esophagus. no lesion in stomach, normal duodenum, normal MPD, pancreatic abnormality c/w diffuse echogenicity, stranding and hyper foci without cyst or
pseudocyst, dilation CBD 8 mm cystic lesion 16 x 70 mm left kidney and recommended ETOH and tobacco abstinence. At some point she went to Dr. Shi at [place]-- recommended chronic pain management and Dr. Henderson at [facility] completed
PETH testing with elevation and recommended ETOH/tobacco abstinence. She had last admission in 2023 but has had multiple ER visit for abdominal pain. She had also had follow up with Dr. Jiang and completed 06/01 EGD with erythema, enlarged gastric
folds and erythematous duodenopathy and EUS with concern for chronic vs early pancreatitis with tortuous.ectatic panc duct, and hypoechoic wall of main panc duct. dilation of CBD 10mm no ampulaor left liver pathology no specimen collected. Pt
now presents with abdominal pain. She admits her pain was 6/10 last week then had vomiting some dark withy small clots with 9/10 pain prior to admission. She had pain meds then 4/10 when seen. She admits to slow wt loss over time but denies
dysphagia, GERD, diarrhea(except for 1 episode last week) constipation or rectal bleeding. She admits to continued tobacco use but cutting back and occasional ETOH use.
-abdominal pain with chronic pancreatitis-- current CT with inflammatory change with minimal lipase elevation
-s/p EGD/EUS 06/01
-prior imaging with multiloculated cytic lesion head of pancreas with inflammatory changes
-pancreatic divisum anatomy
-ETOH and Tobacco use
-wt loss
other medical problems:
-prior noted renal cyst on EUS 2022
-hepatomegaly
-CVA
-migraines
-depression/anxiety
-idiopathic myopathy
-hepatic steatosis
-migraines
-diverticulitis
-pre DM
-migraines
PLAN:
etiology of increased pain related to chronic pancreatitis, noted with pain prior GI procedure 06/01
cont pain control already with some improvement in ER
advance diet as tolerated -- consider clears if no further vomiting
stressed to patient need for complete ETOH and tobacco abstinence as pt admits to continued use
monitor for loose stools -- was on panc enzymes in past - no on current med list
consider OP pain management
06/03/2025
Tolerating liquid diet with no issue. start low fat diet, discussed absolutely smoking and alcohol cessation
likely home tomorrow
improving inflammatory markers
would get better triglyceride control (alcohol will also increase triglyercides)
Subjective
Subjective
Date of Service: June 03, 2025
Pain is present but improved from yesterday. No nausea or vomiting. Passing gas. Tolerating clear liquids with no problem
Objective
Data Reviewed
Laboratory Data:
Laboratory Results
06/02/25 11:40
06/02/25 11:40
Laboratory Results
PT 13.0 Sec (11.4-14.6) 06/02/25 11:40
INR 0.93 06/02/25 11:40
APTT 30.6 Sec (23.4-35.0) 06/02/25 11:40
Total Bilirubin 0.4 mg/dl (0.2-1.3) 06/02/25 11:40
AST 19 U/L (14-36) 06/02/25 11:40
ALT 15 U/L (0-35) 06/02/25 11:40
Alkaline Phosphatase 42 U/L (38-126) 06/02/25 11:40
Amylase 60 U/L (30-110) 06/03/25 06:11
Lipase 149 U/L (23-300) 06/03/25 06:11
Vital Signs and I&O:
Vital Signs
Temp Pulse Resp BP Pulse Ox
98.6 F 79 16 154/73 98
06/03/25 15:08 06/03/25 15:08 06/03/25 15:08 06/03/25 15:08 06/03/25 15:08
I&O
06/02/25 06/03/25 06/04/25
06:59 06:59 06:59
Intake Total 3960 / 3960
Balance 3960 / 3960
Physical Exam
Physical Exam
HEENT: Anicteric
GI: Soft, Non Distended, Tender (mildly tender) and Normal Bowel Sounds
Extremities: No Edema
Neuro: Non Focal
--- NOTE | 2025-06-03 15:40 | W.PN.UPDATE ---
Update Note
Progress Note Update
GI will sign off. please call with questions
--- NOTE | 2025-06-03 16:28 | CM ---
Alert awake oriented patient who lives with her Tramaine in a 2 town home with 2 steps to enter and 16 steps to bed/bathroom. She is independent in activates of daily living.She does drive .She uses no adaptive devices.Offered VN she declined
need.
No VN in past . No SNF hx
Pharmacy [place]
PCP Dr Nina
PLAN Home with no needs
[2025-06-03] MEDS: LOVENOX 40 MG SC (17:34)
[2025-06-03] MEDS: PEPCID 20 MG PO (21:09)
[2025-06-03] MEDS: XANAX 2 MG PO (22:18)
[2025-06-03 23:00] VITALS: BP 183/86
[2025-06-04] MEDS: DILAUDID 1 MG IV (01:47)
[2025-06-04] MEDS: NORCO 5/325 2 TABLET PO (05:29)
[2025-06-04] MEDS: ASPIR LOW (ENTERIC COATED) 81 MG PO (07:29)
[2025-06-04] MEDS: WELLBUTRIN XL (24 hour extended release) 150 MG PO (07:29)
[2025-06-04] MEDS: NICODERM TRANSDERMAL 21 MG TRANSDERM (07:29)
[2025-06-04] MEDS: ZOLOFT 200 MG PO (07:29)
[2025-06-04] MEDS: TRICOR 145 MG PO (07:30)
[2025-06-04] MEDS: BENICAR 40 MG PO (07:30)
[2025-06-04] MEDS: PROTONIX 40 MG PO (07:30)
[2025-06-04 07:48] VITALS: BP 180/87
[2025-06-04 08:35] LABS: ALT (SGPT) 11 U/L (0-35); AST (SGOT) 17 U/L (14-36); Albumin 3.3 g/dl (3.5-5.0); Alkaline Phosphatase 34 U/L (38-126); Blood Urea Nitrogen 6 mg/dl (7-17); Calcium 8.5 mg/dl (8.4-10.2); Carbon Dioxide 24 mmol/L (22-30); Chloride 113 mmol/L (98-107); Estimated Creatinine Clearance 86 ml/min; Glucose 81 mg/dl (70-99); Potassium 3.9 mmol/L (3.5-5.1); Sodium 141 mmol/L (135-145); Total Protein 5.4 g/dl (6.3-8.2); eGFR > 60.00
--- NOTE | 2025-06-04 10:42 | W.PN.HOSP.TC ---
Today's Communication/Plan
-
d.c home
Assessment / Plan
Assessment / Plan
1. Acute on chronic pancreatitis
- CT abd/pelvis showing pancreatitis with small developing pseudocysts
- Patient underwent EUS on 06/01 showing changes of chronic pancreatitis
- Patient continues to using alcohol and tobacco and likely aggravating further episodes
- Lipase was minimally elevated to 400s, has trended down
- Able to tolerate LF diet without any problems overnight.
2. Chronic abdominal pain and narcotic dependence
- Unfortunately in setting of chronic pancreatitis with patient continues to drink/smoke causing aggravation of further symptoms
- Patient have undergone celiac ganglion block in the past
- Patient currently has been prescribed Vicodin/fentanyl by primary care physician although patient stopped using fentanyl due to concern of skin reaction
- Patient pain controlled with oral vicodin, have home supply.
- Patient never followed up with pain specialist in the past, recommended to continue follow-up postdischarge as patient will require long-term pain control, Dr Morse's contact number provided.
3. Alcohol use disorder
Tobacco use
- Counseled on cessation
4. Chronic kidney stage IIIb
- Creatinine remains elevated to 1.1
- continue monitoring
Hyperlipidemia
History of stroke
Depression/Anxiety
Gastroesophageal reflux disease
Essential hypertension
DVT prophylaxis-Lovenox
Full code
More than 30 minutes spent in discharge including
Final examination of the patient
Summarizing hospital stay
Instructions for continuing care to all relevant caregivers
Preparation of discharge records, prescriptions, and referral forms
Total time spent (in minutes): 39 mins
Anticipated Discharge: Today
Subjective/Interval History
-
Date of Service: June 04, 2025
abd pain is improved
able to keep food down
no other new reported problems
Objective Data
-
Labs:
Laboratory Results
06/04/25
06:36
Sodium 141
Potassium 3.9
Chloride 113 H
Carbon Dioxide 24
BUN 6 L
Creatinine 0.8
Glucose 81
Calcium 8.5
Total Bilirubin 0.2
AST 17
ALT 11
Alkaline Phosphatase 34 L
Vital Signs:
Vital Signs
Temp Pulse Resp BP Pulse Ox
97.8 F 67 18 180/87 99
06/04/25 07:48 06/04/25 07:48 06/04/25 07:48 06/04/25 07:48 06/04/25 07:48
I&O
06/03/25 06/04/25 06/05/25
06:59 06:59 06:59
Intake Total 3960 / 3960 1939
Balance 3960 / 3960 1939
Review of Systems
-
Respiratory: Reports No Symptoms
Cardiac: Reports No Symptoms
Abdomen/GI: Denies Abdominal Pain, Nausea or Vomiting
Physical Exam
-
General: Negative Appears Chronically Ill or Obese
HEENT: Negative Oxygen
GI: Soft and Nontender
Neuro: Awake, Alert and Oriented
Psych: Calm
--- NOTE | 2025-06-04 12:18 | CM ---
MD entered order for discharge.
Tramaine drove her home.
Declined need for VN .
Pt agrees with discharge today.
PLAN Home no needs
--- NOTE | 2025-06-04 13:57 | W.DCSUMMARY ---
Discharge Summary
Discharge Data
Date of Admission: 06/02/25
Date of Discharge: 06/04/25
-
Pending Results: No
Hospital Course
Discharging Physician : Dr Jaylen Dixon
Disposition : To home
Primary care physician : Dr Lance Nina
Principal Discharge diagnosis :
Acute on chronic pancreatitis
Chronic abdominal pain and narcotic dependence
Chronic Discharge diagnosis :
Alcohol use disorder
Tobacco use
Chronic kidney disease stage IIIb
Hyperlipidemia
History of stroke
Depression/anxiety
Gastroesophageal reflux disease
Essential hypertension
Hospital Course :
Patient is 54-year-old female with above-mentioned past medical history came to ER with new onset of diffuse abdominal pain and associated nausea. IRAD. Patient with history of chronic pancreatitis and had undergone endoscopic EUS 2 days before
the presentation. Patient was noted to have changes of chronic pancreatitis only on that study. Postdischarge patient was doing well although on day formation patient started to having significant abdominal pain and came to ER for further
evaluation. CT abdomen pelvis showing minimal pancreatitis which was possible residual. Lipase were elevated to 400s only. Patient was nonetheless maintained on IV hydration and bowel rest with increased pain medication regimen. GI was involved
in care and was following along as well. Patient symptoms improved within 48 hours and was able to be advanced to low-fat diet before discharge. Patient was instructed to follow-up with pain specialist as patient have chronic pain issues. Patient
continues to drink and smoke at this point and patient was counseled on strict abstinence moving forward to avoid any further episodes as much as possible.
Important imaging findings :
None
Procedure findings :
None
Discharge Plan
-
Patient Disposition: Home (Routine Discharge)
Discharge Diagnosis/Procedures: Acute on chronic pancreatitis, persistent abdominal pain
Condition: Fair
Diet: Low Fat
Activity: As tolerated
Driving Restrictions: No driving
Bathing Restrictions: OK to Shower
Referrals:
Moose Morse MD [Active, Anesthesiology]
Referral Note: Please call for an appointment with Dr Morse
Lance Nina DO [Family Provider, [facility]] - in one week
Prescriptions:
Continued
omeprazole 40 MG capsule,delayed release(DR/EC)
40 mg PO DAILY
famotidine 20 MG tablet
20 mg PO HS
alprazolam [Xanax] 1 mg Tablet
2 mg PO HS
sertraline 100 mg Tablet
200 mg PO DAILY
hydrocodone-acetaminophen 10-325 mg Tablet
2 tab PO TID
bupropion HCl [Wellbutrin XL] 150 mg Tablet Extended Release 24 Hr
150 mg PO DAILY
Repatha SureClick 140 mg/mL Pen Injector
140 mg SC Q2W
fenofibrate nanocrystallized 145 mg Tablet
145 mg PO DAILY Qty: 30 0RF
ondansetron HCl 4 mg Tablet
4 mg PO Q6HPRN PRN (Reason: nausea)
aspirin 81 mg Tablet,Delayed Release (Dr/Ec)
81 mg PO DAILY
olmesartan [Benicar] 40 mg Tablet
40 mg PO DAILY
Trintellix 5 mg Tablet
5 mg PO DAILY
Nurtec ODT
PO PRN PRN (Reason: migrane)
Discharge Orders:
Discharge Patient (As Directed); Ordered 06/04/25
Ordered By: Jaylen Dixon
Discharge Date and Time
Discharge Date/Time: 06/04/25 11:58
Print Language: CITIZEN OF [place]
== END 2025-06-04 11:58 | disposition home or self-care (01) | DRG 439 ==
LOC: 4 EAST ACU 15:16
PROVIDERS: Physician Assistant; Registered Nurse; ADMITTING PHYSICIAN Student in an Organized Health Care Education/Training Program; ATTENDING PHYSICIAN Hospitalist; CONSULT PHYSICIAN Internal Medicine; EMERGENCY PHYSICIAN Emergency Medicine; FAMILY PHYSICIAN Family Medicine
DX: K85.90 Acute pancreatitis without necrosis or infection, unspecified (principal); F11.20 Opioid dependence, uncomplicated; K86.3 Pseudocyst of pancreas; K92.0 Hematemesis; Q45.3 Other congenital malformations of pancreas and pancreatic duct; G89.29 Other chronic pain; E78.00 Pure hypercholesterolemia, unspecified; E78.1 Pure hyperglyceridemia; F10.10 Alcohol abuse, uncomplicated; F32.A Depression, unspecified; F41.9 Anxiety disorder, unspecified; G43.909 Migraine, unspecified, not intractable, without status migrainosus; K21.9 Gastro-esophageal reflux disease without esophagitis; I12.9 Hypertensive chronic kidney disease with stage 1 through stage 4 chronic kidney disease, or unspecified chronic kidney disease; N18.32 Chronic kidney disease, stage 3b; K31.89 Other diseases of stomach and duodenum; G71.3 Mitochondrial myopathy, not elsewhere classified; N28.1 Cyst of kidney, acquired; R73.03 Prediabetes; K76.0 Fatty (change of) liver, not elsewhere classified; K86.1 Other chronic pancreatitis; E83.51 Hypocalcemia; F90.9 Attention-deficit hyperactivity disorder, unspecified type; F17.210 Nicotine dependence, cigarettes, uncomplicated; Z88.1 Allergy status to other antibiotic agents; Z90.49 Acquired absence of other specified parts of digestive tract; Z86.73 Personal history of transient ischemic attack (TIA), and cerebral infarction without residual deficits; Z79.82 Long term (current) use of aspirin; Z88.8 Allergy status to other drugs, medicaments and biological substances; Z87.19 Personal history of other diseases of the digestive system
CPT/HCPCS: 71046; 74177; 80053; 80061; 82077; 82150; 83605; 83690; 84478; 84484; 85025; 85610; 85730; 86140; 96361; 96374; 96375; 96376; 99285; Q9967

== ENCOUNTER 2025-08-15 20:07 | Inpatient (IN) | payer BC, SELFPAY ==
[2025-08-15] VITALS (9 sets, daily range): BP systolic 130–166; BP diastolic 69–87; BMI 21.8
[2025-08-15 13:07] LABS: Hematocrit 44.4 % (37.0-47.0); Hemoglobin 14.7 g/dL (12.0-16.0); Mean Corp Hgb Conc. 33.1 g/dL (33.0-37.0); Mean Corpuscular Volume 89.3 fL (81.0-99.0); Nucleated Red Blood Cells % 0 %; Platelet Count 407 10^3/uL (130-400); Red Cell Dist. Width 14.6 % (11.5-14.5)
[2025-08-15 13:19] LABS: ALT (SGPT) 16 U/L (0-35); AST (SGOT) 24 U/L (14-36); Albumin 4.7 g/dl (3.5-5.0); Alkaline Phosphatase 43 U/L (38-126); Blood Urea Nitrogen 26 mg/dl (7-17); Calcium 9.9 mg/dl (8.4-10.2); Carbon Dioxide 21 mmol/L (22-30); Chloride 103 mmol/L (98-107); Glucose 111 mg/dl (70-99); Potassium 4.4 mmol/L (3.5-5.1); Sodium 136 mmol/L (135-145); Total Protein 7.6 g/dl (6.3-8.2); eGFR > 60.00
[2025-08-15 13:32] LABS: Lipase 2247 U/L (23-300)
[2025-08-15] MEDS: NSS 1000 IV ×3 (14:32→21:54)
[2025-08-15] MEDS: ZOFRAN 4 MG IV (14:32)
[2025-08-15] MEDS: DILAUDID 1 MG IV ×3 (14:32→23:18)
--- NOTE | 2025-08-15 14:36 | ED.GENMED ---
History of Present Illness
General
Chief Complaint: Abdominal Symptoms
Time Seen by Provider: 08/15/25 14:13
History of Present Illness
History of Present Illness:
55-year-old female with history of chronic pancreatitis, hypertension, lipidemia, prior history of EtOH abuse, narcotic dependence presenting to the emergency department for nausea, vomiting, abdominal pain. Patient reports symptoms started on
Saturday, 3 days ago. She vomited after eating and then has since been unable to tolerate any p.o. with upper abdominal pain. Reports that her pain feels consistent with prior episodes of pancreatitis from first. Notes history of cholecystectomy.
Denies fever, reports chills. She has been using her fentanyl patch and oxycodone without relief of symptoms. Denies significant chest pain or difficulty breathing. Patient denies additional acute medical complaints
Past History
Past History
ED Past Medical History: CVA (TIA), HTN, Hypercholesterolemia, Psychiatric (Anxiety, Depression, ) and Other (Migraine headache, diverticulosis, pancreatitis, Ovarian cyst, )
ED Past Surgical History: Appendectomy, Cholecystectomy, Gynecological and Other (Hernia, )
Social History
Tobacco: Smoker
Alcohol: Chronic alcoholic (Since her Pancreatitis)
Drug: None
Personal:
Living: with family
Employment: Not employed
Family History
Family History: Hypertension and Other (father with brain tumor)
Phy Exam
Physical Exam
Physical Exam:
General: Well-appearing, no clinical signs of dehydration, nontoxic and in no acute distress
HEENT: protecting airway
Neck: appears supple
CV: Tachycardic regular rhythm
Resp: No accessory muscle use, no increased work of breathing
Abd: Mild distention with diffuse tenderness with voluntary guarding, no rebound
Extremities: No deformities, no swelling
Neuro: alert, no focal neurologic deficit
: deferred
Rectal: deferred
Psych: Normal affect
Skin: Intact
Course
Orders/Labs/Results
Orders:
Orders
08/15/25 12:48
Electrocardiogram (*1) Urgent
Reason for Study: Tachycardia
EKG- Treatment ONCE
08/15/25 12:55
Complete Blood Count/With Diff Urgent
Comprehensive Metabolic Panel Urgent
Lipase Urgent
08/15/25 14:19
0.9% Sodium Chloride 1000 ml [Nss] 1,000 ml IV BOLUS
HYDROmorphone [Dilaudid] 1 mg IV NOW STA
Ondansetron Injectable [Zofran] 4 mg IV NOW STA
08/15/25 14:20
CT Abd/pelvis W Iv Cont Urgent
Comment:
Reason For Exam: upper abdominal pain, pancreatitis
08/15/25 15:30
HYDROmorphone [Dilaudid] 2 mg IV NOW STA
08/15/25 17:33
0.9% Sodium Chloride 1000 ml [Nss] 1,000 ml IV BOLUS
08/15/25 18:17
Hydrocodone 5/APAP 325 [Warren 5/325] 2 tablet PO NOW STA
08/15/25 18:18
HYDROmorphone [Dilaudid] 1 mg IV Q3HPRN PRN
08/15/25 18:20
Nicotine [Nicoderm Transdermal] 14 mg TRANSDERM DAILY
08/15/25 18:30
0.9% Sodium Chloride 1000 ml [Nss] 1,000 ml IV 125 mls/hr
08/15/25 18:33
Admit/Transfer Patient As Directed
Co-Sign Provider:
Level of Care: Inpatient admission
Assign to:: Medical/Surgical
Physician / Group: [facility]
Diagnosis: acute alcoholic pancreatitis
Reason for Hospitalization: acute alcoholic pancreatitis
Expected length of stay greater than two midnights?: Yes
ELOS- Estimated Length of Stay in days: 4
I certify the patient meets the requirements for IP care: Yes
Code Status As Directed
Resuscitation Status: Full Code
08/15/25 18:39
PRN Pain Medication Management As Directed
May give lesser potent ordered pain med per pt: Yes
preference::
Protocol:: Medication orders for pain may be administered in a
manner that supports deferring to patient preference
when the pt is:
- Requesting an ordered lesser potent pain medication.
Least to most potent pain medications are defined
as: acetaminophen < NSAID < tramadol < opioids
(morphine, oxycodone, hydromorphone).
- Requesting a lesser dose of the same medication IF
ORDERED.
- Requesting a less intrusive route of administration
if both routes are prescribed by the provider (PO <
IV).
08/15/25 18:40
GASTROINTESTINAL CONSULT Routine
Consulting Provider: Teresa Lagos
Was physician already notified: Yes
Reason for consult: acute alcoholic pancreatitis
08/15/25 22:00
Remove Patch [Remove Nicotine Patch] 1 patch REMOVE HS
Abnormal Lab Results
08/15/25
12:55
WBC 12.9 H 10^3/uL
(4.8-10.8)
RDW 14.6 H %
(11.5-14.5)
Plt Count 407 H 10^3/uL
(130-400)
Absolute Neuts (auto) 9.9 H 10^3/uL
(1.4-6.5)
Absolute Monos (auto) 0.7 H 10^3/uL
(0.1-0.6)
Neutrophils % 76.7 H %
(42.2-75.2)
Lymphocytes % 16.5 L %
(20.5-51.1)
Carbon Dioxide 21 L mmol/L
(22-30)
BUN 26 H mg/dl
(7-17)
Glucose 111 H mg/dl
(70-99)
Lipase 2247 H* U/L
(23-300)
08/15/25 12:55
08/15/25 12:55
Vital Signs
Initial and Last Documented VS:
Initial Vital Signs
Temp Pulse Pulse Ox
98.0 F 125 98
08/15/25 12:44 08/15/25 12:44 08/15/25 12:44
Last Documented Vital Signs
Temp Pulse Resp BP Pulse Ox
98.0 F 99 18 141/82 98
08/15/25 12:44 08/15/25 18:00 08/15/25 18:08 08/15/25 18:00 08/15/25 14:38
MDM/Problems Addressed
MDM/Problems Addressed:
55-year-old female with history of chronic pancreatitis and narcotic dependence presenting to the emergency department for upper abdominal pain with nausea and vomiting vital signs on arrival significant for tachycardia.
On exam patient is in no acute distress, however visible secondary to pain. Mild distention with diffuse tenderness to palpation voluntary guarding. Patient notes that her pain feels similar to prior episodes of pancreatitis. Labs obtained prior
to my assessment with lipase greater than 2000 which does appear to be higher the patient's baseline. Concern for acute on chronic pancreatitis. Patient's lips appear dry, notes no p.o. intake for the past few days. Will start on IV fluids,
Zofran, Dilaudid for pain. Will obtain CT abdomen pelvis to ensure no complicating features to patient's pancreas.
17:45 -patient CT is consistent with acute pancreatitis with edematous changes. Plan for admission for continued pain medication and IV fluids.
*Pulse Oximetry
SaO2: 98
Oxygen Mode of Delivery: Room air
Patient hypoxic: no
*Critical Care Note
Total Time (30-74mins, 75-104mins- exclusive of procedures): Not Applicable
ED Attending Note
-
Portions of this chart may have been created with voice recognition software.� Occasional wrong word or��sound alike� substitutions may have occurred due to the inherent limitations of voice recognition software.
Discharge Plan
Departure
Patient Disposition: Admit
Date of Disposition: 08/15/25
Time of Disposition: 18:05
Presentation/result/management discussed w/ accepting MD/DO: Hospitalist
Condition: Fair
Discharge Problem:
Acute on chronic pancreatitis
Prescriptions:
No Action
omeprazole 40 MG capsule,delayed release(DR/EC)
40 mg PO DAILY
famotidine 20 MG tablet
20 mg PO HS
sertraline 100 mg Tablet
200 mg PO DAILY
hydrocodone-acetaminophen 10-325 mg Tablet
2 tab PO TID
bupropion HCl [Wellbutrin XL] 150 mg Tablet Extended Release 24 Hr
150 mg PO DAILY
Repatha SureClick 140 mg/mL Pen Injector
140 mg SC Q2W
fenofibrate nanocrystallized 145 mg Tablet
145 mg PO DAILY Qty: 30 0RF
ondansetron HCl 4 mg Tablet
4 mg PO Q6HPRN PRN (Reason: nausea)
aspirin 81 mg Tablet,Delayed Release (Dr/Ec)
81 mg PO DAILY
olmesartan [Benicar] 40 mg Tablet
40 mg PO DAILY
alprazolam 1 mg tablet
1 mg PO TID
zolpidem 10 mg tablet
10 mg PO HSPRN PRN (Reason: sleep)
fentanyl 75 mcg/hr patch 72 hour
75 mcg transdermal Q72H
Trintellix 10 mg tablet
10 mg PO DAILY
Referrals:
Lance Nina DO [Family Provider, Family Practice]
Interventions
Interventions:
*Risk Screen - Suicide Last Done: 08/15/25 12:44
*General Assessment Last Done: 08/15/25 14:40
*Neglect/Abuse Screening Last Done: 08/15/25 12:44
*ED- Fall Risk Assessment Last Done: 08/15/25 14:40
*ED COVID-19 Vaccine History Last Done: 08/15/25 14:40
*ED Influenza Vaccine History Last Done: 08/15/25 14:40
[facility]-Jwecuwcrtu Assessment Last Done: 08/15/25 16:56
Discharge Date and Time
Print Language: DANISH
[2025-08-15] MEDS: DILAUDID 2 MG IV (15:35)
--- NOTE | 2025-08-15 17:54 | HPS.HSE ---
Addendum entered and electronically signed by Martín Prakash MD 08/15/25 18:49:
This is an addendum to H&P written by Alyse Gomez on 08/15/2025. �Patient seen and examined independently with [employer].
55-year-old female past medical history of chronic pancreatitis, pancreatic divisum, alcohol use disorder, tobacco use, CKD 3B, hyperlipidemia, CVA, anxiety/depression, GERD, hypertension, presenting with nausea and vomiting and upper abdominal pain
starting 3 days ago. �No fevers but has chills. �Drinking 3 ounces of vodka per day which was apparently 1-1/2 weeks ago.
Vital signs unremarkable. �Labs show leukocytosis 12.9. �Lipase of 2200.
CT abdomen pelvis shows acute interstitial edematous pancreatitis with large amount of peripancreatic inflammation and small amount of nonloculated peripancreatic fluid. �1.7 cm chronic pseudocyst in the pancreatic head. �Mild reactive wall
thickening in the distal stomach and duodenum. �2 cm stricture stricture in the proximal common bile duct. �Moderate reactive wall thickening of the distal stomach and duodenum, mild colitis in the transition descending colon.
Patient with acute on chronic pancreatitis secondary to alcohol use.
Continue fentanyl patch and Vicodin, as needed Dilaudid 1 mg every 3. �N.p.o., IV fluids, GI consulted. �Alcohol withdrawal protocol, thiamine and folate. Patient needs to permanently stop drinking alcohol.�
Original Note:
Family Physician
-
Family Physician: Lance Nina
Chief Complaint
-
Abdominal pain nausea vomiting drink
History of Present Illness
55-year-old female states after eating part of a cheese steak on Saturday she has had persistent vomiting with upper abdominal pain until 3 AM this morning. She has history of chronic pancreatitis is still drinking vodka 2 to 3 ounces of kevyn patricio
with last drink being 1.5 weeks ago she states. She reports pain is across her entire upper abdomen with no improvement on chronic fentanyl 75 mcg transdermal patch she replaced today and hydrocodone/acetaminophen 20 mg/650 3 times daily. She
denies fever, chills, chest pain, palpitations, cough, shortness of breath, diarrhea, urinary symptoms.
She has past medical history chronic alcoholic pancreatitis, pancreatic divisum alcohol use disorder, hepatic steatosis, chronic abdominal pain on chronic oral opiates, CKD 3B, HLD, CVA, depression anxiety/depression, GERD, HTN, nicotine use,
migraines, ovarian cyst, insomnia,Mitochondrial myopathy
Medical History
Past Medical History
Past Medical History: Reports Other
Additional Past Medical History:
Chronic alcoholic pancreatitis
Pancreatic divisium
Alcohol use disorder
Nicotine abuse
GERD without esophagitis
Hypertension
Hyperlipidemia
Hypertriglyceridemia depression
Mitochondrial myopathy
Type 2 diabetes
Depression,, bile duct stricture
Acute tubular
Hypocalcemia
Bradycardia
ADHD
CVA
Past Surgical History: Reports Other
Additional Past Surgical History:
Cholecystectomy
Social History
Tobacco: Smoker
Alcohol: Occasional
Drug: None
Family History
Family History: Not pertinent
Allergies / Home Medications
Allergies reflects when Allergies were last updated in [employer].
Home Medications with original date entered in [employer]
Allergy/Medication List:
Allergies
Allergy/AdvReac Type Severity Reaction Status Date / Time
levofloxacin (From Levaquin) Allergy joint Verified 08/15/25 12:47
swelling
prednisone (Prednisone) Allergy joint Verified 08/15/25 12:47
swelling
steri strips Allergy Rash Uncoded 08/15/25 12:47
Home Medications
omeprazole 40 mg capsule,delayed release 40 mg PO DAILY Gastrointestinal issue 12/20/19
famotidine 20 mg tablet 20 mg PO HS Gastrointestinal Issue 05/06/20
bupropion HCl 150 mg 24 hr tablet, extended release (Wellbutrin XL) 150 mg PO DAILY Mental Health/Anxiety 06/26/23
evolocumab 140 mg/mL subcutaneous pen injector (Repatha SureClick) 140 mg SC Q2W High Cholesterol 06/26/23
hydrocodone 10 mg-acetaminophen 325 mg tablet 2 tab PO TID Pain 06/26/23
sertraline 100 mg tablet 200 mg PO DAILY Mental Health/Anxiety 06/26/23
fenofibrate nanocrystallized 145 mg tablet 145 mg PO DAILY High cholesterol #30 tabs 06/29/23
aspirin 81 mg tablet,delayed release 81 mg PO DAILY Blood Clot Prevention/Tx 06/02/25
olmesartan 40 mg tablet (Benicar) 40 mg PO DAILY High Cholesterol 06/02/25
ondansetron HCl 4 mg tablet 4 mg PO Q6HPRN PRN nausea 06/02/25
alprazolam 1 mg tablet 1 mg PO TID 08/15/25
fentanyl 75 mcg/hr transdermal patch 75 mcg transdermal Q72H 08/15/25
vortioxetine 10 mg tablet (Trintellix) 10 mg PO DAILY 08/15/25
zolpidem 10 mg tablet 10 mg PO HSPRN PRN sleep 08/15/25
Review of Systems
-
History Source: Patient
A 12 point ROS was completed and negative except as noted: Yes
Constitutional: Denies Fever or Chills
EENT: Denies Sore Throat
Respiratory: Denies Cough, Hemoptysis or Trouble Breathing
Cardiac: Denies Chest Pain, Diaphoresis or Palpitations
Abdomen/GI: Reports Abdominal Pain, Nausea and Vomiting; Denies Diarrhea or Constipated
: Denies Dysuria, Frequency or Flank Pain
Musculoskeletal: Denies Joint Pain or Edema
Skin: Denies Itching or Rash
Neurological: Denies Dizzy or Headache
Endocrine: Reports No Symptoms
Hematologic/Lymphatic: Reports No Symptoms
Psych: Reports Calm
Physical Exam
Vital Signs
Vital Signs
Temp Pulse Resp BP Pulse Ox
98.0 F 92 19 148/75 98
08/15/25 12:44 08/15/25 16:30 08/15/25 16:30 08/15/25 16:00 08/15/25 14:38
Physical Exam
General: Conversant and Pain; No Fever or Chills
HEENT: NormoCephalic, Anicteric, Moist mucous membranes, Atraumatic, PERRLA, Delevan Conjunctivae and No Ptosis
Respiratory: Clear; No Wheezes, Rales or Rhonchi
Cardiac: S1/S2 and Regular Rhythm
Breast: Deferred by me
GI: Soft, Non Distended, Normal Bowel Sounds and Tender (Entire upper abdomen)
Rectal: Deferred by Provider
Genito-urinary: Deferred by me
Musculoskeletal: No Clubbing, No Cyanosis and No Edema
Skin: Warm and Dry; No Rash or Jaundice
Neuro: AO x 3, No Motor Deficits, Nonfocal/grossly intact, Cranial Nerves Intact and No Sensory Deficits; No Slurred Speech, Facial Droop, Tremors or Sedated
Psych: Calm
Laboratory Results
-
08/15/25 12:55
08/15/25 12:55
Laboratory Results
Total Bilirubin 0.6 mg/dl (0.2-1.3) 08/15/25 12:55
AST 24 U/L (14-36) 08/15/25 12:55
ALT 16 U/L (0-35) 08/15/25 12:55
Alkaline Phosphatase 43 U/L (38-126) 08/15/25 12:55
Lipase 2247 U/L (23-300) H* 08/15/25 12:55
Data Reviewed
-
CT Scan: Report Reviewed by me
Lab Data: Labs Reviewed by me
Impression/Plan
-
Impression/plan:
Admit to [facility]
#Acute on chronic Alcoholic pancreatitis
#Chronic pancreatitis/pancreatic divisum
WBC 12.9, lipase 2247
-IV NSS given 2 L given in ER
-Continue IV NSS 125 cc an hour
-Patient still drinking vodka 2 to 3 ounces with kevyn patricio last drink 1.5 weeks ago patient made aware needs complete cessation of alcohol
-IV Zofran as needed abdominal
- Continue fentanyl patch 75 mcg every 72 hours,
- Hydrocodone/acetaminophen 10/650 2 tabs 3 times daily
- IV Dilaudid 1 mg every 3 hours as needed severe pain
- N.p.o. except meds
- Follow CBC, CMP
- Consult GI
CT abdomen pelvis:
1. ACUTE INTERSTITIAL EDEMATOUS PANCREATITIS with a large amount of peripancreatic inflammation and a small amount
of nonloculated peripancreatic fluid.
2. 1.7 cm chronic pseudocyst in the pancreatic head.
3. Moderate reactive wall thickening in the distal stomach and duodenum.
4. Mild diffuse hepatic steatosis.
5. 2 cm in length STRICTURE in the PROXIMAL COMMON BILE DUCT.
6. Mild intrahepatic biliary dilatation.
7. Previous cholecystectomy.
8. Mild colitis in the transverse and descending colon.
9. Minimal ascites.
History of endoscopic ultrasound on 06/01/2025 showed indeterminate for chronic pancreatitis versus early chronic pancreatitis
with pancreatic parenchymal abnormalities pancreatic duct was tortuous and ectatic in appearance and hyperechoic rodriguez in the
main pancreatic duct measuring 3 mm diameter
#Alcohol use/former alcohol abuse
Patient reports his still drinking vodka 2 to 3 ounces with kevyn patricio last drink 1.5 weeks ago
-patient made aware needs complete cessation of alcohol
- Alcohol withdrawal protocol
#Chronic abdominal pain with chronic opiate dependence
Continue fentanyl patch 75 mcg every 72 hours,
- hydrocodone/acetaminophen 10/650 2 tabs 3 times daily
#Nicotine abuse
Currently smoking 1/2 pack/day
-Nicotine patch 14 mg transdermal
#Patient reports she has chronic muscle weakness/Mitochondrial myopathy
- but states no formal diagnosis despite multiple biopsies and evaluations
#Hepatic steatosis
#HTN
no reported meds bp 142/82
# HLD
Hold fenofibrate, patient on Repatha 140 mg SQ every 2 weeks last dose 08/12/2025
#CVA
#Depression/Anxiety
Continue alprazolam 1 mg p.o. 3 times daily, Wellbutrin 150 mg daily, Zoloft 200 mg daily, Trintellix 10 mg daily
#GERD
IV Protonix, IV Pepcid
-Hold p.o. Pepcid 20 mg at bedtime, omeprazole
#Insomnia
Continue Ambien 10 mg at bedtime as needed hold for sedation
Other PMH:
migraines
ovarian cyst
insomnia
DVT prophylaxis
Subcu Lovenox
Full code
[2025-08-15] MEDS: NORCO 5/325 2 TABLET PO ×2 (18:31→20:20)
[2025-08-15] MEDS: NICODERM TRANSDERMAL 14 MG TRANSDERM (18:31)
--- NOTE | 2025-08-15 21:40 | PTCARENOTE ---
Pt arrived from ED to unit on stretcher at 2054. Pt ambulated to bed without assist-gait steady. Pt complains of persisting abd pain, improved from initial presentation-See JAN. Pt w/ hx of ETOH-MSAS ordered; pt currently calm, without tremors,
AAOx3 and VSS; see MSAS Intervention. IVF started. Pt made aware on plan of care and is agreeable to it at this moment. Bed in lowest position and locked, call stevens within reach, pt states no further needs at this time.
[2025-08-15] MEDS: ROXICODONE 15 MG PO (21:46)
[2025-08-15] MEDS: PROTONIX IV 40 MG IV (21:46)
[2025-08-15] MEDS: PEPCID 20 MG IV (21:47)
[2025-08-15] MEDS: NSS (PRESERVATIVE FREE) 8 ML IV (21:47)
[2025-08-15] MEDS: NSS (PRESERVATIVE FREE) 10 ML IV (21:47)
[2025-08-15] MEDS: XANAX 1 MG PO (21:47)
[2025-08-15] MEDS: REMOVE NICOTINE PATCH 1 PATCH REMOVE (21:48)
[2025-08-15] MEDS: TYLENOL 650 MG PO (21:48)
[2025-08-15] MEDS: REMOVE DURAGESIC PATCH 1 PATCH REMOVE (21:49)
[2025-08-15 23:06] LABS: INR 1.10; PT 14.5 Sec (11.4-14.6)
[2025-08-15 23:07] LABS: APTT 25.8 Sec (23.4-35.0)
[2025-08-15 23:22] LABS: GGTP 11 U/L (12-43); Magnesium 2.1 mg/dl (1.6-2.3)
[2025-08-16] MEDS: DILAUDID 1 MG IV ×7 (02:19→21:15)
[2025-08-16 05:21] LABS: Urine Character Slightly Cloudy (Clear)
[2025-08-16 05:50] LABS: Urine Squamous Cell >30 /LPF (Few)
[2025-08-16 05:52] LABS: Urine White Cell 16-20 /HPF (0-5)
[2025-08-16] MEDS: NSS 1000 IV (06:09)
--- NOTE | 2025-08-16 07:16 | CON.GI ---
Addendum entered and electronically signed by Teresa Lagos MD 08/16/25 14:47:
The patient was seen and examined by me independently in collaboration with the nurse practitioner.
Past medical history/social history/medications/allergies/family history reviewed.
Lab data and imaging data reviewed.
55-year-old female past medical history of chronic pancreatitis follows with Dr. Jiang details as below suspect related to alcohol, tobacco, pancreatic divisum, known pancreatic pseudocyst. Presenting with initially nausea and vomiting and then
subsequently had abdominal pain with recent alcohol use [address] scan did show acute interstitial edematous pancreatitis with peripancreatic inflammation and small amount of nonloculated peripancreatic fluid, pseudocyst, reactive thickening
in the stomach and duodenum, fatty liver, 2 cm length stricture in the proximal, bile duct with mild intra clementine di, mild colitis, minimal ascites. White count initially 12.9, repeat 8.4, LFTs normal.
I discussed with Dr. Jiang regarding the stricture and he recommended a repeat MRI in 6 weeks which this will need to be set up upon discharge. He has an appointment with her in September. If LFTs start to rise, would address with him.
In regards to the acute on chronic pancreatitis, recommend pain control, IV fluids, NPO. Stressed alcohol cessation. Also needs to quit smoking.
Patient also complaining of vision issues. Defer to primary team.
Original Note:
Consultation
-
Date/Time Consultation Requested: 08/15/251839
Date/Time Consultation Performed: 08/16/25 5345
Requesting Provider: YINKA Addison
Performing Provider: YINKA Duvall, Marcella Lagos MD
Reason for Consultation: abdominal pain
Medical History
Chief Complaint / HPI
Chief Complaint: abdominal pain
History of Present Illness:
Pt is a 53yo with hx CVA, migraines, depression, anxiety, CKD, idiopathic myopathy (with prior muscle biopsy), hepatic steatosis, colon polyps, migraines, diverticulitis, pre DM, pancreatic divisum, continued ETOH and tobacco abuse, prior
pseudocyst and prior ara in 2009. In reviewing records hx pancreatitis initially in 2019. MRI at that time with small pseudocyst and pancreatic divisum. She had recurrence in [address] with 14 mm cystic lesion likely pseudocyst and
MRI with 4.2 x 1.6 cm multilobulated cyst posterior neck of pancreas, suggest pseudocyst. She completed EUS 09/2023-with Dr. Jiang Normal esophagus. no lesion in stomach, normal duodenum, normal MPD, pancreatic abnormality c/w diffuse echogenicity,
stranding and hyper foci without cyst or pseudocyst, dilation CBD 8 mm cystic lesion 16 x 70 mm left kidney and recommended ETOH and tobacco abstinence. At some point she went to Dr. Shi at [facility]-- recommended chronic pain management and
Dr. Henderson at [facility] completed PETH testing with elevation and recommended ETOH/tobacco abstinence. She has been following with Dr. Jiang. In May she completed 06/01 EGD with erythema, enlarged gastric folds and erythematous
duodenopathy and EUS with concern for chronic vs early pancreatitis with tortuous ectatic panc duct, and hypoechoic wall of main panc duct with pancreatic duct 3 mm, dilation of CBD 10mm no ampulla or left liver pathology no specimen collected.
She was readmitted after procedure with acute on chronic pancreatitis in May. She now presents with nausea, vomiting, and upper abdominal pain with concern for continued ETOH/tobacco use. CT on admission with acute edematous pancreatitis with
large amount of peripancreatic inflammation and small amount of non loculated peripancreatic fluid, chronic 1.7 cm chronic pseudocyst, reactive wall thickening of stomach and duodenum, hepatic steatosis, 2 cm proximal CBD stricture, intrahepatic
biliary dilatation, prior ara, mild colitis and ascites. Labs on admission with WB 12,900, hbg 14.7, normal LFT's and lipase 2247.
In review with patient she admits to decline over last year. She was seeing pain management with Dr. Ocampo but did not keep up with monthly testing and now pain management per Dr. Hernández. She states she has had celiac plexus block in past
long with narcotic management. She admits several weeks ago her pain improved but she began wtih vomiting. She now presents with 20/10 diffuse pain. She describes a worsening pain left sided then left lower and mid lower pain as migratory. Pain
in sharp and constant. Pain was 20/10 now 6/10 after pain medication. She admits to dysphagia with pills, + GERD on chronic famotidine and Omeprazole, + wt loss 50 lbs over last 1-2 years. She also admits to constipation with need for fleet
enema PRN if severe. She denies diarrhea, blood or black in stools. Pt has tried pancreatic enzymes in past without improvement and stopped.
Past Medical History
Past Medical History: CVA, HTN, Hypercholesterolemia, Renal Failure (CKD) and Other (hepatic steatosis, migraines, diverticulitis, pre DM, ovarian cyst, ideopathic myopathy , insomnia, anxiety/depression, acute on chronic pancreatitis, pancreatic
divisum, pseudocyst, colon polyps)
Past Surgical History: Cholecystectomy, Gynecological (ovarian cyst surgery ) and Other (hernia repair )
Social History
Tobacco: Smoker (11/14 PPD)
Alcohol: Occasional (1-drink every 2-3 weeks )
Drug: None
Personal:
Living: With Family
Employment: Not Employed
Family History
Family History: Other (no family hx pancreatitis, uncle with colon polyps, mother with colon polyps)
Allergies / Home Medications
Allergy/AdvReac Type Severity Reaction Status Date / Time
levofloxacin (From Levaquin) Allergy joint Verified 08/15/25 12:47
swelling
prednisone (Prednisone) Allergy joint Verified 08/15/25 12:47
swelling
steri strips Allergy Rash Uncoded 08/15/25 12:47
�Medication �Instructions �Recorded
omeprazole 40 mg capsule,delayed 40 mg PO DAILY Gastrointestinal 12/20/19
release issue
famotidine 20 mg tablet 20 mg PO HS Gastrointestinal Issue 05/06/20
bupropion HCl 150 mg 24 hr tablet, 150 mg PO DAILY Mental 06/26/23
extended release (Wellbutrin XL) Health/Anxiety
evolocumab 140 mg/mL subcutaneous 140 mg SC Q2W High Cholesterol 06/26/23
pen injector (Behzad Dia)
hydrocodone 10 mg-acetaminophen 2 tab PO TID Pain 06/26/23
325 mg tablet
sertraline 100 mg tablet 200 mg PO DAILY Mental 06/26/23
Health/Anxiety
fenofibrate nanocrystallized 145 145 mg PO DAILY High cholesterol 06/29/23
mg tablet #30 tabs
aspirin 81 mg tablet,delayed 81 mg PO DAILY Blood Clot 06/02/25
release Prevention/Tx
olmesartan 40 mg tablet (Benicar) 40 mg PO DAILY High Cholesterol 06/02/25
ondansetron HCl 4 mg tablet 4 mg PO Q6HPRN PRN nausea 06/02/25
alprazolam 1 mg tablet 1 mg PO TID 08/15/25
fentanyl 75 mcg/hr transdermal 75 mcg transdermal Q72H 08/15/25
patch
vortioxetine 10 mg tablet 10 mg PO DAILY 08/15/25
(Trintellix)
zolpidem 10 mg tablet 10 mg PO HSPRN PRN sleep 08/15/25
Review of Systems
-
History Source: Patient
Constitutional: Reports Weight Loss and Fatigue
EENT: Reports No Symptoms
Respiratory: Reports Trouble Breathing (at times )
Cardiac: Reports Chest Pain (at time with abdominal pain )
Abdomen/GI: Reports Abdominal Pain, Nausea and Constipated
: Reports Difficulty Voiding
Musculoskeletal: Reports Other (back pain)
Skin: Reports No Symptoms
Neurological: Reports Weakness
Endocrine: Reports No Symptoms
Hematologic/Lymphatic: Reports No Symptoms
Vital Signs
Temp Pulse Resp BP Pulse Ox
98.9 F 81 18 130/69 96
08/15/25 23:08 08/15/25 23:08 08/15/25 23:08 08/15/25 23:08 08/15/25 23:08
Physical Exam
Exam
General: Other (sleepy after pain meds but arousable )
HEENT: Normocephalic and Anicteric
Respiratory: Clear
Cardiac: Regular Rhythm
GI: Soft, Tender (diffuse with minimal palpatation ) and Distended (mild )
Musculoskeletal: No Clubbing and No Cyanosis
Skin: Warm and Dry
Neuro: Oriented (sleepy but arousable ) and Other
Psych: Calm
Results
WBC 12.9 10^3/uL (4.8-10.8) H 08/15/25 12:55
Hgb 14.7 g/dL (12.0-16.0) 08/15/25 12:55
Hct 44.4 % (37.0-47.0) 08/15/25 12:55
MCV 89.3 fL (81.0-99.0) 08/15/25 12:55
Plt Count 407 10^3/uL (130-400) H 08/15/25 12:55
Absolute Neuts (auto) 9.9 10^3/uL (1.4-6.5) H 08/15/25 12:55
PT 14.5 Sec (11.4-14.6) 08/15/25 22:50
INR 1.10 08/15/25 22:50
APTT 25.8 Sec (23.4-35.0) 08/15/25 22:50
Sodium 136 mmol/L (135-145) 08/15/25 12:55
Potassium 4.4 mmol/L (3.5-5.1) 08/15/25 12:55
Chloride 103 mmol/L (98-107) 08/15/25 12:55
Carbon Dioxide 21 mmol/L (22-30) L 08/15/25 12:55
BUN 26 mg/dl (7-17) H 08/15/25 12:55
Creatinine 1.0 mg/dL (0.6-1.0) 08/15/25 12:55
Calcium 9.9 mg/dl (8.4-10.2) 08/15/25 12:55
Total Bilirubin 0.6 mg/dl (0.2-1.3) 08/15/25 12:55
AST 24 U/L (14-36) 08/15/25 12:55
ALT 16 U/L (0-35) 08/15/25 12:55
Alkaline Phosphatase 43 U/L (38-126) 08/15/25 12:55
Lipase 2247 U/L (23-300) H* 08/15/25 12:55
Diagnostic Image Results:
08/15/25 CT Abd/pelvis W Iv Cont
1. ACUTE INTERSTITIAL EDEMATOUS PANCREATITIS with a large amount of peripancreatic inflammation and a small amount of nonloculated peripancreatic fluid.
2. 1.7 cm chronic pseudocyst in the pancreatic head.
3. Moderate reactive wall thickening in the distal stomach and duodenum.
4. Mild diffuse hepatic steatosis.
5. 2 cm in length STRICTURE in the PROXIMAL COMMON BILE DUCT.
6. Mild intrahepatic biliary dilatation.
7. Previous cholecystectomy.
8. Mild colitis in the transverse and descending colon.
9. Minimal ascites.
06/02/25- CT a/p
Inflammation centered at the head of the pancreas most suspicious for pancreatitis. Recommend correlation with lipase levels. Probable small developing pseudocysts of the pancreatic head/neck and posterior pancreatic body.
05/28/25- US abdomen
1. Status post cholecystectomy. Mild dilation of the common bile duct measures 1.1 cm in diameter, which may be within normal limits following cholecystectomy. Please correlate with serum bilirubin levels to exclude biliary obstruction.
2. No additional sonographic abnormalities demonstrated.
03/27/25 CT A/p
There is stranding and edema within the right upper quadrant adjacent to the distal stomach/proximal duodenum and pancreatic head. Findings may represent pancreatitis or gastritis/duodenitis possibly the setting of a small gastric ulcer Recommend
correlation with lipase.
Hepatic steatosis, similar to prior.
02/26/25 CT A/p IV only
Nonspecific inflammatory changes in the right upper quadrant between the head of the pancreas, duodenum, and along the course of the common bile duct. Etiology uncertain. Possible considerations include duodenitis, pancreatitis, or ascending
cholangitis. Mild distention of the common bile duct, 12 mm. No intrahepatic ductal dilatation.
Mild hepatomegaly with fatty infiltration.
02/02/25 MR Abdomen W/o & W Contrast
New 2.2 cm in length segment of narrowing involving the mid common bile duct suspicious for a developing stricture.
1.9 cm cystic lesion of the posterior pancreatic head, decreased in size compared to the abdominal MRI from 08/16/2023. Smaller 0.7 cm cystic focus in the anterior pancreatic head. Both are favored to represent pancreatic pseudocysts in the setting
of previous pancreatitis.
Severe hepatic steatosis and mild hepatomegaly.
05/26/24 CT A/p
Small multiloculated cystic lesion involving the head of the pancreas overall with slightly greater surrounding inflammatory changes in comparison with relative recent prior CT March 16, 2024. Findings most likely representing a pancreatic pseudocyst.
Superimposed changes of acute pancreatitis are also likely.. Recommend correlation with serum lipase.
Mild hepatomegaly with diffuse fatty liver.
Prior cholecystectomy. No findings to suggest biliary tract dilatation.
Simple left renal cyst and additional two subcentimeter low-attenuation left renal lesions too small to characterize.
03/16/24 CT A/p IV only
IMPRESSION: Within the visualized lower lungs, scattered linear and groundglass opacities, increased compared to CT scan of October 19 2023. This most likely represents atelectasis, but please correlate with any symptoms that would suggest
pneumonitis.
Multilobulated cystic mass within the head of the pancreas and extending superiorly adjacent to the caudate lobe of the liver as well as posterior to the lateral segment left lobe liver. This is likely a pseudocyst, which has increased in size
compared to examination October 19 2023.
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 There is also narrowing of the main portal vein as a result of this presumed pseudocyst.
Prior GI Procedures:
EGD: 2020 - - Tortuous esophagus - no visible erosions seen.
Biopsied
- Erythematous mucosa in the gastric body. Biopsied.
- Normal examined duodenum.
Colonoscopy: 2020- - One 9 mm polyp in the rectum, removed with a cold
snare. Resected and retrieved. tx TA
- Non-bleeding internal hemorrhoids
EUS 09/2023-with Dr. Jiang Normal esophagus. no lesion in stomach, normal duodenum, normal MPD, pancreatic abnormality c/w diffuse echogenicity, starnd and hypercheoic foci, dilation CBD 8 mm cystic lesion 16 x 70 mm left kidney
06/01/25 EGD - Normal esophagus.
- Erythematous mucosa in the gastric body. Biopsied.
- Enlarged gastric folds. Biopsied.
- Erythematous duodenopathy.
06/01/25 EUS
- Pancreatic parenchymal abnormalities consisting of hyperechoic
strands, hyperechoic foci with shadowing, diffusely increased
echogenicity and lobularity without honeycombing were noted in the
pancreatic head and genu of the pancreas. Overall this is
indeterminate for chronic pancreatitis vs early chronic pancreatitis.
- The pancreatic duct had a tortuous/ectatic appearance and had
hyperechoic rodriguez in the main pancreatic duct. The pancreatic duct
measured up to 3 mm in diameter.
- There was dilation in the common bile duct which measured up to
10 mm.
- There was no sign of significant pathology in the ampulla.
- There was no evidence of significant pathology in the left lobe
of the liver.
- No specimens collected.
Assessment / Plan
-
Pt is a 53yo with hx CVA, migraines, depression, anxiety, CKD, idiopathic myopathy (with prior muscle biopsy), hepatic steatosis, colon polyps, migraines, diverticulitis, pre DM, pancreatic divisum, continued ETOH and tobacco abuse, prior
pseudocyst and ara around 2009. In reviewing records hx pancreatitis initially in 2019. MRI at that time with small pseudocyst and pancreatic divisum. She had recurrence in [address] with 14 mm cystic lesion likely pseudocyst and
MRI with 4.2 x 1.6 cm multilobulated cyst posterior neck of pancreas, suggest pseudocyst. She completed EUS 09/2023-with Dr. Jiang Normal esophagus. no lesion in stomach, normal duodenum, normal MPD, pancreatic abnormality c/w diffuse echogenicity,
stranding and hyper foci without cyst or pseudocyst, dilation CBD 8 mm cystic lesion 16 x 70 mm left kidney and recommended ETOH and tobacco abstinence. At some point she went to Dr. Shi at [facility]-- recommended chronic pain management and
Dr. Henderson at [facility] completed PETH testing with elevation and recommended ETOH/tobacco abstinence. She has been following with Dr. Jiang. In May she completed 06/01 EGD with erythema, enlarged gastric folds and erythematous duodenopathy
and EUS with concern for chronic vs early pancreatitis with tortuous ectatic panc duct, and hypoechoic wall of main panc duct with pancreatic duct 3 mm, dilation of CBD 10mm no ampulla or left liver pathology no specimen collected. She was
readmitted after procedure with acute on chronic pancreatitis in May. She now presents with nausea, vomiting, and upper abdominal pain with concern for continued ETOH use. CT on admission with acute edematous pancreatitis with large amount of
peripancreatic inflammation and small amount of non loculated peripancreatic fluid, chronic 1.7 cm chronic pseudocyst, reactive wall thickening of stomach and duodenum, hepatic steatosis, 2 cm proximal CBD stricture, intrahepatic biliary dilatation,
prior ara, mild colitis and ascites. Labs on admission with WB 12,900, hbg 14.7, normal LFT's and lipase 2247.
-abdominal pain with CT concern for acute pancreatitis
-hx chronic abdominal pain with concern for chronic pancreatitis with prior celiac plexus blocks
-CT with 2 cm proximal CBD stricture
-mil colitis per CT
-ascites per CT
-s/p EGD/EUS 06/01
-prior imaging with multiloculated cystic lesion head of pancreas with inflammatory changes
-pancreatic divisum anatomy
-continued ETOH and Tobacco use
-hx prior ara
-constipation
other medical problems:
-prior noted renal cyst on EUS 2022
-hepatomegaly/hepatic steatosis
-CVA
-migraines
-CKD
-depression/anxiety
-idiopathic myopathy
-diverticulitis
-pre DM
PLAN:
Etiology of symptoms with concern for acute on chronic pancreatitis likely multifactorial --possible CBD stricture, hx pseudocyst, pancreas divisum, continued ETOH/tobacco use, and medications
pt also with chronic use of Alprazolam (class 2), Sertraline (class 2), Fenofibrate (class 3 B), Omeprazole (class 4 )
pain management per hospitalist
cont aggressive IVF- LR at 250ml/hr
concern for possible 2 cm biliary stricture reviewed with Dr. Jiang with normal LFT's plan for OP MRI prior to 09/24 office visit. If rise in LFT's during admission consider sooner
currently NPO with nausea and vomiting - advance when symptoms improved
add bowel regiment with chronic constipation with miralax and senna
cont Protonix daily and Pepcid at HS
stressed need to ETOH and tobacco abstinence as leading to continued issues
Pt is due follow up 09/24/25 at 11:45AM with Dr. Jiang
pt will be due 2025 for colonoscopy for follow up with TA polyps
-
-
Thank you for consultation and allowing me to participate in the patient's care. Please call the insurance commissioner GI physician during the after hours with any questions or concerns.
[2025-08-16 07:30] VITALS: BP 151/72
[2025-08-16] MEDS: ZOFRAN 4 MG IV ×2 (07:47→19:56)
[2025-08-16] MEDS: XANAX 1 MG PO (07:48)
[2025-08-16] MEDS: ROXICODONE 15 MG PO ×3 (07:48→21:20)
[2025-08-16] MEDS: ZOLOFT 200 MG PO (07:48)
[2025-08-16] MEDS: TYLENOL 650 MG PO ×3 (07:48→21:20)
[2025-08-16] MEDS: ASPIR LOW (ENTERIC COATED) 81 MG PO (07:48)
[2025-08-16] MEDS: FOLVITE 1 MG PO (07:48)
[2025-08-16] MEDS: WELLBUTRIN XL (24 hour extended release) 150 MG PO (07:48)
[2025-08-16] MEDS: COZAAR 100 MG PO (07:49)
[2025-08-16] MEDS: PROTONIX IV 40 MG IV (07:49)
[2025-08-16] MEDS: THIAMINE INJECTION 200 MG IV ×2 (07:49→19:57)
[2025-08-16] MEDS: NSS (PRESERVATIVE FREE) 10 ML IV (07:49)
[2025-08-16] MEDS: NICODERM TRANSDERMAL 14 MG TRANSDERM (08:02)
[2025-08-16] MEDS: TORADOL 30 MG IV (08:29)
[2025-08-16 08:48] LABS: Hematocrit 37.9 % (37.0-47.0); Hemoglobin 12.2 g/dL (12.0-16.0); Mean Corp Hgb Conc. 32.2 g/dL (33.0-37.0); Mean Corpuscular Volume 94.8 fL (81.0-99.0); Nucleated Red Blood Cells % 0 %; Red Cell Dist. Width 15.1 % (11.5-14.5)
[2025-08-16 08:54] LABS: ALT (SGPT) 15 U/L (0-35); AST (SGOT) 28 U/L (14-36); Albumin 3.6 g/dl (3.5-5.0); Alkaline Phosphatase 33 U/L (38-126); Blood Urea Nitrogen 22 mg/dl (7-17); Calcium 8.8 mg/dl (8.4-10.2); Carbon Dioxide 26 mmol/L (22-30); Chloride 108 mmol/L (98-107); Estimated Creatinine Clearance 85 ml/min; Glucose 62 mg/dl (70-99); Potassium 4.1 mmol/L (3.5-5.1); Sodium 139 mmol/L (135-145); Total Protein 6.1 g/dl (6.3-8.2); eGFR > 60.00
--- NOTE | 2025-08-16 09:05 | W.PN.HOSP.TC ---
Addendum entered and electronically signed by Kayode Dixon MD 08/16/25 15:09:
See update note
Original Note:
Today's Communication/Plan
-
Plan reviewed with attending.
continue analgesics
trial clears
CT head negative for acute abnormality
Assessment / Plan
Assessment / Plan
55yoF PMH chronic pancreatitis, AUD, tobacco use, CKD, HLD, CVA, GERD presenting with acute on chronic pancreatitis.
Pt began vomiting at home with unbearable pain, prompting her presentation. Pt denies recent alcohol use. Describes pain as diffuse, cramping, up to 10/10 in waves. Pt has recurrence of blurry/'off' vision where her numbers seem garbled to her. No
acute findings on neuro exam.
AFVSS. Lipase initially 2247. Electrolytes WNL. LFTs stable. CT demonstrated evidence of acute pancreatitis, CBD stricture and chronic pseudocyst. Stricture or cyst unlikely associated with current presentation due to LFTs WNL and chronic pain.
#acute on chronic pancreatitis
- manage pain. Tylenol, PRN dilaudid and toradol
- IVF LR 250ml/hr
- antimeetics
- Can start clear diet as tolerated. Low threshold to go back to NPO if nauseas
#blurry vision
- Head CT demonstrates no new concern for CVA
- Monitor closely for changes in neuro exam, especially given hx of CVA. No changes in neuro exam presently
#former AUD
- thiamine and folate
#chronic pain
- continue home fentanyl patch
#tobacco use
- nictonie patch
#hepatic steatosis
- outpt f/u
#GERD
- continue pepcid
Anticipated Discharge: 24 - 48 hours
Subjective/Interval History
-
Date of Service: August 16, 2025
Pt is reporting continued, severe abdominal pain. She reports not having pain this bad since she initially had her first episode of pancreatitis. Pain comes in waves. better control with toradol. She describes it as 'krystian-horses everywhere.' With
the severe abdominal pain, she reports neck cramping/pain.
She describes eating a cheesesteak before presenting with continuous vomiting since then. Pt reports last drink over a week ago. She reports she knows she is not supposed to consume any alcohol with her chronic pancreatitis but will have a drink
every 1-2 weeks. No vomiting since presenting yesterday morning. Pt reports she did not sleep all night due to the pain keeping her up.
Pt described initial blurry 'off' vision when she began having the pain at home that resolved once she was in the ED. Pt describes recurrence of this altered vision. 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
reports increased changes in her vision.
Objective Data
-
Labs:
Laboratory Results
08/15/25 08/16/25
22:50 08:08
WBC 8.4
Hgb 12.2
Hct 37.9
Plt Count Pending
PT 14.5
INR 1.10
APTT 25.8
Sodium 139
Potassium 4.1
Chloride 108 H
Carbon Dioxide 26
BUN 22 H
Creatinine 0.8
Glucose 62 L
Calcium 8.8
Total Bilirubin 0.5
AST 28
ALT 15
Alkaline Phosphatase 33 L
Vital Signs:
Vital Signs
Temp Pulse Resp BP Pulse Ox
98.2 F 81 18 151/72 98
08/16/25 07:30 08/16/25 07:30 08/16/25 07:30 08/16/25 07:30 08/16/25 07:30
I&O
08/15/25 08/16/25 08/17/25
06:59 06:59 06:59
Intake Total 962 / 962
Output Total 200 / 200
Balance 762 / 762
Physical Exam
-
General: Well Developed, Well Nourished and Other (lying in bed uncomfortable)
HEENT: Normocephalic, Atraumatic, Moist Mucous Membranes, Anicteric, Beckett Conjunctivae, Nose Appears Normal and Ears Appear Normal
Respiratory: Clear to Auscultation and Non Labored Respirations (pain with deep breath)
Cardiac: Regular Rhythm and S1/S2
Breast: Deferred by me
GI: Soft, Nondistended and Tender (RLQ non tender, diffusely tender everywhere else)
Musculoskeletal: No Clubbing, No Cyanosis and No Edema
Skin: Warm and Dry
Neuro: AO x 3, No Motor Deficits, Nonfocal/Grossly Intact, Central Nerve's Intact, No Sensory Deficits, DTR's Intact & Symmetrica and Other (negative romberg, smooth finger to nose, heel to loaiza. ); Negative Slurred Speech or Facial Droop
Psych: Calm
[2025-08-16] MEDS: LR 1000 IV ×4 (09:07→21:32)
[2025-08-16 09:14] LABS: Platelet Count 280 10^3/uL (130-400)
--- NOTE | 2025-08-16 09:56 | PTCARENOTE ---
Patient ringing during change of shift rounds c/o '30/08' abd pain located on L side radiating to center of abd, states it feels sharp/shooting and has increased in severity since 0500, states pain has never felt like this prior, anxious and tearful
at bedside, states it is hard to take a deep breath r/t pain. Denies chest discomfort, vitals taken by tech stable. MD and GI made aware, verbal order taken for one time dose of 1mg IV Dilaudid per MD. Dilaudid and PRN Zofran administered for nausea
- see JAN. Resident and GI at bedside.
--- NOTE | 2025-08-16 11:41 | CM ---
Reviewed the chart notes and spoke with the patient at the bedside. Patient is admitted for acute alcoholic pancreatitis. Consult received for substance abuse. Provided [employer] brochure. The patient resides with his spouse in a two story home
with two steps to enter. The patient reports no DME/VN/SNF in the past. The patient confirmed her pharmacy of choice is [facility]. CM continues to be available to patient/family and is monitoring medical plan for needs at discharge.
Plan: Discharge to home when medically stable. No needs anticipated at this time.
--- NOTE | 2025-08-16 13:07 | W.PN.UPDATE ---
Update Note
Progress Note Update
Acute on chronic alcoholic pancreatitis
Lipase 2247
IV fluids, discontinue NS start LR at a rate of 250 to prevent bacterial translocation
Analgesics
Antiemetics
N.p.o., clear liquid diet if able to tolerate and advance as tolerated from there
GI consult
Hyperchloremia
Will change chloride load as receiving and as that has 154 mEq of chloride to LR which has 104 mEq. �Should improve chloride. �Repeat BMP tomorrow morning
Former alcohol abuse and recent alcohol use
Thiamine folate
Last drink 1.5 weeks ago therefore occasions for withdrawal agents
Chronic abdominal pain with chronic opioid dependence
Continue fentanyl patch hydrocodone/acetaminophen
Nicotine abuse
Continue NicoDerm
Hepatic steatosis
Outpatient hepatology follow-up
Hyperlipidemia
Hold fenofibrate
Continue subcu Repatha
Depression anxiety
Continue Xanax
GERD
Continue Pepcid IV transition to home Pepcid/omeprazole when ready for discharge
Read, reviewed, and agree. See same day progress note for additional details. Time spent reviewing records in EMR, med rec, consults, notes, d/w consultants, nursing, family, and CM
[2025-08-16 15:18] VITALS: BMI 21.8
[2025-08-16] MEDS: XANAX PO (15:27)
[2025-08-16 15:36] VITALS: BP 141/64
[2025-08-16] MEDS: LOVENOX 40 MG SC (17:17)
[2025-08-16] MEDS: TORADOL 15 MG IV (19:56)
[2025-08-16] MEDS: XANAX 2 MG PO (21:16)
[2025-08-16] MEDS: NSS (PRESERVATIVE FREE) 8 ML IV (21:17)
[2025-08-16] MEDS: PEPCID 20 MG IV (21:18)
[2025-08-16] MEDS: SENOKOT 17.2 MG PO (21:20)
[2025-08-16] MEDS: REMOVE NICOTINE PATCH 1 PATCH REMOVE (21:52)
[2025-08-16 23:19] VITALS: BP 115/62
[2025-08-17] MEDS: LR 1000 IV ×3 (01:11→09:00)
[2025-08-17] MEDS: DILAUDID 1 MG IV ×4 (03:01→17:00)
[2025-08-17] MEDS: TORADOL 15 MG IV ×2 (05:17→13:45)
--- NOTE | 2025-08-17 06:42 | W.PN.HOSP.TC ---
Addendum entered and electronically signed by Kayode Dixon MD 08/18/25 17:17:
See update note
Read, reviewed, and agree. See same day progress note for additional details. Time spent reviewing records in EMR, med rec, consults, notes, d/w consultants, nursing, family, and CM
Original Note:
Today's Communication/Plan
-
Plan reviewed with attending
Pain markedly improved.
Continue analgesics and antiemetics
repeat CBC in pm
Advance diet
Assessment / Plan
Assessment / Plan
55yoF PMH chronic pancreatitis, AUD, tobacco use, CKD, HLD, CVA, GERD presenting with acute on chronic pancreatitis.
Pt began vomiting at home with unbearable pain, prompting her presentation. Pt denies recent alcohol use. Describes pain as diffuse, cramping, up to 10/10 in waves. Pt has recurrence of blurry/'off' vision where her numbers seem garbled to her. No
acute findings on neuro exam.
AFVSS. Lipase initially 2247. Electrolytes WNL. LFTs stable. CT demonstrated evidence of acute pancreatitis, CBD stricture and chronic pseudocyst. Stricture or cyst unlikely associated with current presentation due to LFTs WNL.
Head CT demonstrates no acute intracranial abnormality. Reviewed with pt and daughter.
Continue to optimize pain control. Pt hypoglycemic BG 50 this morning, given juice. Encourage PO as tolerated, advanced to low residue. Transitioned to D5LR. Toradol has seemed to help pain. If pain continues to improve, possible afternoon/evening
discharge. Hg 8.9, likely dilutional. Repeat CBC in afternoon.
#acute on chronic pancreatitis
- manage pain. Tylenol, PRN dilaudid and toradol
- IVF LR 250ml/hr
- antimeetics
- Can start clear diet as tolerated. Low threshold to go back to NPO if nauseas
#blurry vision
- Head CT demonstrates no new concern for CVA
- Monitor closely for changes in neuro exam, especially given hx of CVA. No changes in neuro exam presently
#former AUD
- thiamine and folate
#chronic pain
- continue home fentanyl patch
#tobacco use
- nictonie patch
#hepatic steatosis
- outpt f/u
#GERD
- continue pepcid
Anticipated Discharge: Within 24 hours
Subjective/Interval History
-
Date of Service: August 17, 2025
Pt reports improvement of pain since yesterday. She complains of feeling 'off' with no explicit issues. Denies vomiting. Mild nausea with apple juice this morning.
Objective Data
-
Labs:
Laboratory Results
08/17/25
05:47
WBC Pending
Hgb Pending
Hct Pending
Plt Count Pending
Sodium Pending
Potassium Pending
Chloride Pending
Carbon Dioxide Pending
BUN Pending
Creatinine Pending
Glucose Pending
Calcium Pending
Total Bilirubin Pending
AST Pending
ALT Pending
Alkaline Phosphatase Pending
Vital Signs:
Vital Signs
Temp Pulse Resp BP Pulse Ox
98.3 F 70 16 115/62 95
08/16/25 23:19 08/16/25 23:19 08/16/25 23:19 08/16/25 23:19 08/16/25 23:19
I&O
08/15/25 08/16/25 08/17/25
06:59 06:59 06:59
Intake Total 962 / 962 3973 / 3973
Output Total 200 / 200
Balance 762 / 762 3973 / 3973
Review of Systems
-
All other systems: Reviewed and negative
Constitutional: Reports No Appetite (reduced from baseline but wants to eat solid food)
Physical Exam
-
General: Well Developed, Well Nourished, No Apparent Distress and Comfortable
HEENT: Normocephalic, Atraumatic and Moist Mucous Membranes
Respiratory: Clear to Auscultation and Non Labored Respirations
Cardiac: Regular Rhythm and S1/S2
GI: Soft, Nondistended and Tender (mild tenderness to LLQ but marked improvement, no voluntary guarding, nonperitonitic )
Musculoskeletal: No Cyanosis and No Edema
Skin: Warm and Dry
Neuro: AO x 3 and Nonfocal/Grossly Intact
Psych: Calm
[2025-08-17 06:45] LABS: Hematocrit 28.3 % (37.0-47.0); Hemoglobin 8.9 g/dL (12.0-16.0); Mean Corp Hgb Conc. 31.4 g/dL (33.0-37.0); Mean Corpuscular Volume 93.7 fL (81.0-99.0); Platelet Count 214 10^3/uL (130-400); Red Cell Dist. Width 15.2 % (11.5-14.5)
[2025-08-17 07:01] LABS: ALT (SGPT) 17 U/L (0-35); AST (SGOT) 32 U/L (14-36); Albumin 2.8 g/dl (3.5-5.0); Alkaline Phosphatase 31 U/L (38-126); Blood Urea Nitrogen 19 mg/dl (7-17); Calcium 8.3 mg/dl (8.4-10.2); Carbon Dioxide 25 mmol/L (22-30); Chloride 110 mmol/L (98-107); Estimated Creatinine Clearance 85 ml/min; Glucose 51 mg/dl (70-99); Potassium 3.8 mmol/L (3.5-5.1); Sodium 137 mmol/L (135-145); Total Protein 4.8 g/dl (6.3-8.2); eGFR > 60.00
[2025-08-17] MEDS: THIAMINE INJECTION 200 MG IV (07:18)
[2025-08-17] MEDS: NICODERM TRANSDERMAL 14 MG TRANSDERM (07:18)
[2025-08-17] MEDS: ASPIR LOW (ENTERIC COATED) 81 MG PO (07:18)
[2025-08-17] MEDS: NSS (PRESERVATIVE FREE) 10 ML IV (07:18)
[2025-08-17] MEDS: WELLBUTRIN XL (24 hour extended release) 150 MG PO (07:18)
[2025-08-17] MEDS: PROTONIX IV 40 MG IV (07:18)
[2025-08-17] MEDS: ROXICODONE 15 MG PO ×2 (07:18→15:14)
[2025-08-17] MEDS: FOLVITE 1 MG PO (07:18)
[2025-08-17] MEDS: MIRALAX 17 GRAMS PO (07:19)
[2025-08-17] MEDS: TYLENOL 650 MG PO ×2 (07:19→15:14)
[2025-08-17] MEDS: COZAAR 100 MG PO (07:19)
[2025-08-17] MEDS: ZOLOFT 200 MG PO (07:20)
[2025-08-17 07:32] LABS: Nucleated Red Blood Cells % 0 %
[2025-08-17 07:38] VITALS: BP 144/71
[2025-08-17 08:54] LABS: Glucose - Point of Care 94 mg/dl (70-99)
[2025-08-17] MEDS: ZOFRAN 4 MG IV ×2 (09:05→17:03)
--- NOTE | 2025-08-17 11:06 | CM ---
Reviewed the chart notes. Diet upgraded to low residue. CM continues to be available to patient/family and is monitoring medical plan for needs at discharge.
Plan: Discharge to home when medically stable. No needs anticipated at this time.
[2025-08-17 11:51] LABS: Glucose - Point of Care 66 mg/dl (70-99)
[2025-08-17] MEDS: D5LR 1000 IV (12:07)
--- NOTE | 2025-08-17 12:27 | PTCARENOTE ---
Patient's sugar on AM labs 51, patient asymptomatic, continuing to c/o L sided abd pain partially relieved with PRN 1mg IV Dilaudid - see JAN. Patient given fruit juice per MD, sugar recheck after drinking juice 94. Patient medicated with PRN IV
Zofran for nausea after drinking juice. Diet advanced to low residue per MD, sugar checked prior to lunch 66, patient asymptomatic but continuing to c/o L sided abd pain, states poor appetite. MD and resident made aware, IVF changed to D5LR
@150ml/hr - see JAN.
[2025-08-17 13:41] LABS: Glucose - Point of Care 100 mg/dl (70-99)
[2025-08-17 14:25] LABS: Hematocrit 32.5 % (37.0-47.0); Hemoglobin 10.5 g/dL (12.0-16.0); Mean Corp Hgb Conc. 32.3 g/dL (33.0-37.0); Mean Corpuscular Volume 93.7 fL (81.0-99.0); Platelet Count 271 10^3/uL (130-400); Red Cell Dist. Width 15.0 % (11.5-14.5)
[2025-08-17] MEDS: DILAUDID IV (15:14)
[2025-08-17 15:22] VITALS: BP 120/55
--- NOTE | 2025-08-17 16:29 | W.PN.GI.CBS2 ---
Today's Communication / Plan
-
advance diet as tolerated
Assessment / Plan
-
Pt is a 53yo with hx CVA, migraines, depression, anxiety, CKD, idiopathic myopathy (with prior muscle biopsy), hepatic steatosis, colon polyps, migraines, diverticulitis, pre DM, pancreatic divisum, continued ETOH and tobacco abuse, prior
pseudocyst and ara around 2009. In reviewing records hx pancreatitis initially in 2019. MRI at that time with small pseudocyst and pancreatic divisum. She had recurrence in [address] with 14 mm cystic lesion likely pseudocyst and
MRI with 4.2 x 1.6 cm multilobulated cyst posterior neck of pancreas, suggest pseudocyst. She completed EUS 09/2023-with Dr. Jiang Normal esophagus. no lesion in stomach, normal duodenum, normal MPD, pancreatic abnormality c/w diffuse echogenicity,
stranding and hyper foci without cyst or pseudocyst, dilation CBD 8 mm cystic lesion 16 x 70 mm left kidney and recommended ETOH and tobacco abstinence. At some point she went to Dr. Shi at [place]-- recommended chronic pain management and
Dr. Henderson at [facility] completed PETH testing with elevation and recommended ETOH/tobacco abstinence. She has been following with Dr. Jiang. In May she completed 06/01 EGD with erythema, enlarged gastric folds and erythematous duodenopathy
and EUS with concern for chronic vs early pancreatitis with tortuous ectatic panc duct, and hypoechoic wall of main panc duct with pancreatic duct 3 mm, dilation of CBD 10mm no ampulla or left liver pathology no specimen collected. She was
readmitted after procedure with acute on chronic pancreatitis in May. She now presents with nausea, vomiting, and upper abdominal pain with concern for continued ETOH use. CT on admission with acute edematous pancreatitis with large amount of
peripancreatic inflammation and small amount of non loculated peripancreatic fluid, chronic 1.7 cm chronic pseudocyst, reactive wall thickening of stomach and duodenum, hepatic steatosis, 2 cm proximal CBD stricture, intrahepatic biliary dilatation,
prior ara, mild colitis and ascites. Labs on admission with WB 12,900, hbg 14.7, normal LFT's and lipase 2247.
-abdominal pain with CT concern for acute pancreatitis
-hx chronic abdominal pain with concern for chronic pancreatitis with prior celiac plexus blocks
-CT with 2 cm proximal CBD stricture
-mil colitis per CT
-ascites per CT
-s/p EGD/EUS 06/01
-prior imaging with multiloculated cystic lesion head of pancreas with inflammatory changes
-pancreatic divisum anatomy
-continued ETOH and Tobacco use
-hx prior ara
-constipation
other medical problems:
-prior noted renal cyst on EUS 2022
-hepatomegaly/hepatic steatosis
-CVA
-migraines
-CKD
-depression/anxiety
-idiopathic myopathy
-diverticulitis
-pre DM
PLAN:
Etiology of symptoms with concern for acute on chronic pancreatitis likely multifactorial
pt also with chronic use of Alprazolam (class 2), Sertraline (class 2), Fenofibrate (class 3 B), Omeprazole (class 4 )
pain management per hospitalist
cont IVF
can try to advance diet
add bowel regiment with chronic constipation with miralax and senna
cont Protonix daily and Pepcid at HS
stressed need to ETOH and tobacco abstinence as leading to continued issues
repeat hgb improved
Pt is due follow up 09/24/25 at 11:45AM with Dr. Jiang at that time will determine outpt imaging f/u
pt will be due 2025 for colonoscopy for follow up with TA polyps
will sign off call with questions
Subjective
Subjective
Date of Service: August 17, 2025
Pt is feeling better no bleeding.
Objective
Data Reviewed
Laboratory Data:
Laboratory Results
08/17/25 13:35
08/17/25 05:47
Laboratory Results
PT 14.5 Sec (11.4-14.6) 08/15/25 22:50
INR 1.10 08/15/25 22:50
APTT 25.8 Sec (23.4-35.0) 08/15/25 22:50
Phosphorus 2.9 mg/dl (2.5-4.5) 08/15/25 22:50
Magnesium 2.1 mg/dl (1.6-2.3) 08/15/25 22:50
Total Bilirubin 0.2 mg/dl (0.2-1.3) 08/17/25 05:47
AST 32 U/L (14-36) 08/17/25 05:47
ALT 17 U/L (0-35) 08/17/25 05:47
Alkaline Phosphatase 31 U/L (38-126) L 08/17/25 05:47
Lipase 2247 U/L (23-300) H* 08/15/25 12:55
Vital Signs and I&O:
Vital Signs
Temp Pulse Resp BP Pulse Ox
98.8 F 78 16 120/55 94
08/17/25 15:22 08/17/25 15:22 08/17/25 15:22 08/17/25 15:22 08/17/25 15:22
I&O
08/16/25 08/17/25 08/18/25
06:59 06:59 06:59
Intake Total 962 / 962 3973 / 3973
Output Total 200 / 200
Balance 762 / 762 3973 / 3973
Physical Exam
Physical Exam
GI: Soft, Non Distended and Tender (left side mild)
Neuro: Non Focal
--- NOTE | 2025-08-17 17:23 | W.DCSUMMARY ---
Discharge Summary
Discharge Data
Date of Admission: 08/15/25
Date of Discharge: 08/17/25
-
Pending Results: No
Hospital Course
55yoF PMH chronic pancreatitis, AUD, tobacco use, CKD, HLD, CVA, GERD presenting with acute on chronic pancreatitis. Pt began vomiting at home with unbearable pain, prompting her presentation. Pt denies recent alcohol use. Describes pain as diffuse,
cramping, up to 10/10 in waves. Pt has recurrence of blurry/'off' vision where her numbers seem garbled to her. No acute findings on neuro exam. CT head demonstrated no acute findings, indicative of prior infarcts and associated encephalomalacia.
AFVSS. Lipase initially 2247. Electrolytes WNL. LFTs stable. CT abdomen demonstrated evidence of acute pancreatitis, CBD stricture and chronic pseudocyst. Stricture or cyst unlikely associated with current presentation due to LFTs WNL.
Head CT demonstrates no acute intracranial abnormality. Reviewed with pt and daughter.
We optimized pain control with home medications, PRN dilaudid. Pt had positive response with resolving pain on toradol. Pt had hypoglycemic episode BG 50, given juice with appropriate response . Tolerated low residue diet. Transitioned to D5LR for
hypoglycemia. Hg 8.9, likely dilutional, improvement on repeat CBC.
#former AUD
- thiamine and folate
#chronic pain
- continue home fentanyl patch
#tobacco use
- nictonie patch
#hepatic steatosis
- outpt f/u
#GERD
- continue pepcid
Discharge Plan
-
Patient Disposition: Home (Routine Discharge)
Discharge Diagnosis/Procedures: acute on chronic pancreatitis
Condition: Fair
Diet: Low Fat
Activity: As tolerated
Driving Restrictions: unless taking narcotic medication
Referrals:
Lance Nina, [Family Provider, Family Practice]
Additional Discharge Medication Instructions: Follow up with your PCP in the next 2 weeks.
Follow up with GI with scheduled appointment 09/24/25 11:45am with Dr. Jiang.
Prescriptions:
Continued
omeprazole 40 MG capsule,delayed release(DR/EC)
40 mg PO DAILY
famotidine 20 MG tablet
20 mg PO HS
sertraline 100 mg Tablet
200 mg PO DAILY
hydrocodone-acetaminophen 10-325 mg Tablet
2 tab PO TID
bupropion HCl [Wellbutrin XL] 150 mg Tablet Extended Release 24 Hr
150 mg PO DAILY
Repatha SureClick 140 mg/mL Pen Injector
140 mg SC Q2W
fenofibrate nanocrystallized 145 mg Tablet
145 mg PO DAILY Qty: 30 0RF
ondansetron HCl 4 mg Tablet
4 mg PO Q6HPRN PRN (Reason: nausea)
aspirin 81 mg Tablet,Delayed Release (Dr/Ec)
81 mg PO DAILY
olmesartan [Benicar] 40 mg Tablet
40 mg PO DAILY
alprazolam 1 mg tablet
1 mg PO TID
zolpidem 10 mg tablet
10 mg PO HSPRN PRN (Reason: sleep)
fentanyl 75 mcg/hr patch 72 hour
75 mcg transdermal Q72H
Trintellix 10 mg tablet
10 mg PO DAILY
Discharge Orders:
Discharge Patient (As Directed); Ordered 08/17/25
Ordered By: Ro Ramos
Discharge Date and Time
Print Language: GEORGIAN
--- NOTE | 2025-08-17 17:25 | PTCARENOTE ---
Patient discharged home, transported by spouse. Patient okay for PRN IV Dilaudid administration prior to DC per MD, administered along with PRN IV Zofran for nausea - see JAN. IV removed by this RN, vitals taken by tech stable. This RN reviewed
discharge medications and instructions with patient and patient's spouse at bedside, both verbalized understanding. Patient confirmed with this RN she feels she can manage current level of pain at home, wants to go home and is in agreement with DC.
Patient dressed and gathered belongings independently in room, taken down to spouse's car via staff escort and wheelchair.
== END 2025-08-17 18:17 | disposition home or self-care (01) | DRG 439 ==
LOC: 2 NORTH 20:07
PROVIDERS: Clinical Nurse Specialist Family Health; Emergency Medicine; ADMITTING PHYSICIAN Hospitalist; ATTENDING PHYSICIAN Hospitalist; CONSULT PHYSICIAN Internal Medicine Gastroenterology; EMERGENCY PHYSICIAN Student in an Organized Health Care Education/Training Program; FAMILY PHYSICIAN Family Medicine
DX: K85.20 Alcohol induced acute pancreatitis without necrosis or infection (principal); F11.20 Opioid dependence, uncomplicated; Q45.3 Other congenital malformations of pancreas and pancreatic duct; K85.80 Other acute pancreatitis without necrosis or infection; K86.0 Alcohol-induced chronic pancreatitis; K21.9 Gastro-esophageal reflux disease without esophagitis; E78.00 Pure hypercholesterolemia, unspecified; E78.1 Pure hyperglyceridemia; Z86.73 Personal history of transient ischemic attack (TIA), and cerebral infarction without residual deficits; N18.32 Chronic kidney disease, stage 3b; G89.29 Other chronic pain; K76.0 Fatty (change of) liver, not elsewhere classified; E11.22 Type 2 diabetes mellitus with diabetic chronic kidney disease; E11.649 Type 2 diabetes mellitus with hypoglycemia without coma; F10.11 Alcohol abuse, in remission; F41.9 Anxiety disorder, unspecified; F32.A Depression, unspecified; G43.909 Migraine, unspecified, not intractable, without status migrainosus; G47.00 Insomnia, unspecified; G71.3 Mitochondrial myopathy, not elsewhere classified; I12.9 Hypertensive chronic kidney disease with stage 1 through stage 4 chronic kidney disease, or unspecified chronic kidney disease; E83.51 Hypocalcemia; F90.9 Attention-deficit hyperactivity disorder, unspecified type; Z88.1 Allergy status to other antibiotic agents; Z88.8 Allergy status to other drugs, medicaments and biological substances; Z86.0100 Personal history of colon polyps, unspecified; F17.210 Nicotine dependence, cigarettes, uncomplicated; K52.9 Noninfective gastroenteritis and colitis, unspecified; Z79.82 Long term (current) use of aspirin; Z79.899 Other long term (current) drug therapy; Z90.49 Acquired absence of other specified parts of digestive tract
CPT/HCPCS: 70450; 74177; 80053; 80306; 80307; 81003; 81015; 82010; 82077; 82962; 82977; 83690; 83735; 84100; 85025; 85027; 85610; 85730; 93005; 96361; 96374; 96375; 96376; 99285; 99406; Q9967

== ENCOUNTER 2025-09-26 15:16 | Inpatient (IN) | payer BC, SELFPAY ==
[2025-09-26] VITALS (7 sets, daily range): BP systolic 140–194; BP diastolic 69–111; BMI 21.0; BMI 20.6
--- NOTE | 2025-09-26 12:19 | ED.GENMED ---
History of Present Illness
General
Chief Complaint: Abdominal Symptoms
Source: patient
Exam Limitations: none
Time Seen by Provider: 09/26/25 12:18
Nursing documentation reviewed up to this point in time: agreed with
History of Present Illness
History of Present Illness:
The patient is a 55-year-old female with a known history of chronic pancreatitis who presents with nausea and abdominal pain. She reports that the symptoms began 2 nights ago. The abdominal pain is described as a pinch in the middle of the abdomen
and episodically feels like her typical pancreatitis pain, though she mentions it occurs in different sections at different times. The pain level is over 10 out of 10. She experienced both diarrhea and constipation intermittently.
The patient has a history of taking narcotics for pain management related to her chronic pancreatitis. She has used Compazine (prochlorperazine) previously for nausea. A trial of prochlorperazine with diphenhydramine will be given as she has taken
Zofran with no relief. Dilaudid (hydromorphone) was also administered to manage acute pain.
Denies chest pain or shortness of breath. Denies fever.
Past History
Past History
ED Past Medical History: CVA (TIA), HTN, Hypercholesterolemia, Psychiatric (Anxiety, Depression, ) and Other (Migraine headache, diverticulosis, pancreatitis, Ovarian cyst, )
ED Past Surgical History: Appendectomy, Cholecystectomy, Gynecological and Other (Hernia, )
Social History
Tobacco: Smoker
Alcohol: Chronic alcoholic (Since her Pancreatitis)
Drug: None
Personal:
Living: with family
Employment: Not employed
Family History
Family History: Hypertension and Other (father with brain tumor)
Review of Systems
Review of Systems
Allergies reviewed?: Yes
All Other Systems: ROS reviewed and negative except as documented in HPI and ROS
Constitutional: Denies fever
Cardiac: Denies chest pain
ABD/GI: Reports abdominal pain, nausea, vomiting, diarrhea and constipated; Denies bloody stools or black stools
: Denies dysuria or difficulty voiding
Musculoskeletal: Reports no symptoms
Skin: Reports no symptoms
Neurological: Reports no symptoms
Phy Exam
Physical Exam
Physical Exam:
GENERAL: Mild distress due to abdominal pain. A&Ox3.
CONSTITUTIONAL: Afebrile.
EYES: clear, conjunctivae normal
ENMT: moist mucus membranes, Pharynx nl
RESPIRATORY: Regular respirations, nonlabored, lungs clear.
CARDIOVASCULAR: Regular rate and rhythm, no murmurs, no rubs.
GI: Soft, generally tender, nondistended, no rigidity, normal BS
MUSCULOSKELETAL: Moves with ease. Well perfused.
SKIN: Warm, dry, pink
PSYCH: Normal mood and affect. Well kept, interactive and appropriate
NEUROLOGIC: Awake, alert and oriented. No focal neurological deficits
Course
Orders/Labs/Results
Orders:
Orders
09/26/25 11:09
EKG [Electrocardiogram (*1)] Urgent
Reason for Study: Abdominal Pain
EKG- Treatment ONCE
09/26/25 12:19
0.9% Sodium Chloride 1000 ml [Nss] 1,000 ml IV BOLUS
09/26/25 12:27
Electrocardiogram (*1) Urgent
Reason for Study: Chest Pain
09/26/25 12:28
Complete Blood Count/With Diff Urgent
Comprehensive Metabolic Panel Urgent
Lipase Urgent
Troponin I Urgent
Diphenhydramine [Benadryl] 50 mg IV NOW STA
Prochlorperazine [Compazine] 10 mg IV NOW STA
09/26/25 12:31
HYDROmorphone [Dilaudid] 0.5 mg .ROUTE .STK-MED ONE
HYDROmorphone [Dilaudid] 0.5 mg IV NOW STA
09/26/25 14:02
0.9% Sodium Chloride 1000 ml [Nss] 1,000 ml IV BOLUS
09/26/25 14:[address] Non Medication Order As Directed
Physician Order: STAT Med rec please
Above order entered?: Yes
09/26/25 14:32
Alcohol Stat
09/26/25 14:38
CT Abd/Pel (IV only)-DH only Urgent
Comment:
Reason For Exam: pancreatitis, abd pain
09/26/25 14:40
GASTROINTESTINAL CONSULT Routine
Consulting Provider: David Crespo
Was physician already notified: Yes
Reason for consult: acute on chronic pancreatitis
09/26/25 14:57
Admit/Transfer Patient As Directed
Co-Sign Provider:
Level of Care: Inpatient admission
Assign to:: Medical/Surgical
Physician / Group: Marisol
Diagnosis: acute on chronic pancreatitis
Reason for Hospitalization: acute on chronic pancreatitis
Expected length of stay greater than two midnights?: Yes
ELOS- Estimated Length of Stay in days: 3
I certify the patient meets the requirements for IP care: Yes
PRN Pain Medication Management As Directed
May give lesser potent ordered pain med per pt: Yes
preference::
Protocol:: Medication orders for pain may be administered in a
manner that supports deferring to patient preference
when the pt is:
- Requesting an ordered lesser potent pain medication.
Least to most potent pain medications are defined
as: acetaminophen < NSAID < tramadol < opioids
(morphine, oxycodone, hydromorphone).
- Requesting a lesser dose of the same medication IF
ORDERED.
- Requesting a less intrusive route of administration
if both routes are prescribed by the provider (PO <
IV).
09/26/25 14:59
Code Status As Directed
Resuscitation Status: Full Code
09/26/25 Dinner
Clear Liquid
At Your Request: Full Participation
09/26/25 15:17
HYDROmorphone [Dilaudid] 0.5 mg IV Q4HPRN PRN
Ketorolac [Toradol] 15 mg IV Q6HPRN PRN
Lactated Ringers [Lr] 1,000 ml IV 250 mls/hr
Ondansetron HCl [Zofran] 4 mg PO Q6HPRN PRN nausea
09/26/25 15:18
Fentanyl, Urine Stat
Urine Drug Abuse Screen Stat
Date Specimen was Collected: 09/26/25
Time Specimen was Collected: 15:16
09/26/25 16:43
Acetaminophen [Tylenol] 650 mg PO Q4HPRN PRN
Albuterol [ProAIR HFA INHALER] 2 puff INH R Q6HPRN PRN sob
Bisacodyl [Dulcolax] 10 mg RECTAL [id number] PRN
Docusate W/Senna [Senokot-S] 1 tablet PO BIDPRN PRN
Polyethylene Glycol Powder [Miralax] 17 grams PO DAILYPRN PRN
09/26/25 16:43
Activity As Directed
Activity Level: With Assistance
Fentanyl Patch Confirmation [phone]
Vital Signs As Directed
Frequency: Per unit guidelines
DX Deep Vein Thrombosis Video Routine
09/26/25 18:00
Enoxaparin Sodium [Lovenox] 40 mg SC QPM
FentaNYL 75 MCG/HR PATCH [Duragesic 75 Mcg/Hr Patch] 1 patch TRANSDERM Q72H
09/26/25 22:00
Alprazolam [Xanax] 2 mg PO HS
Famotidine [Pepcid] 20 mg PO HS
Zolpidem Tartrate [Ambien] 10 mg PO HSPRN PRN sleep
09/27/25 06:00
Complete Blood Count/No Diff IN AM
Comprehensive Metabolic Panel IN AM
Magnesium IN AM
09/27/25 08:00
Aspirin Low Dose EC [Aspir Low (Enteric Coated)] 81 mg PO DAILY
Fenofibrate 145 [Tricor] 145 mg PO DAILY
Losartan [Cozaar] 100 mg PO DAILY
Pantoprazole [Protonix] 40 mg PO DAILY
Sertraline HCl [Zoloft] 200 mg PO DAILY
vortioxetine [Trintellix] 10 mg PO DAILY
09/29/25 18:00
REMOVE fentaNYL PATCH [Remove Duragesic Patch] 1 patch REMOVE Q72H
Abnormal Lab Results
09/26/25
12:28
RDW 15.8 H %
(11.5-14.5)
Absolute Neuts (auto) 6.8 H 10^3/uL
(1.4-6.5)
Neutrophils % 78.8 H %
(42.2-75.2)
Lymphocytes % 15.6 L %
(20.5-51.1)
BUN 19 H mg/dl
(7-17)
Glucose 108 H mg/dl
(70-99)
Lipase 3430 H* U/L
(23-300)
09/26/25 12:28
09/26/25 12:28
Vital Signs
Initial and Last Documented VS:
Initial Vital Signs
Temp Pulse Resp BP Pulse Ox
98.2 F 106 15 180/111 98
09/26/25 11:07 09/26/25 11:07 09/26/25 11:07 09/26/25 11:07 09/26/25 11:07
Last Documented Vital Signs
Temp Pulse Resp BP Pulse Ox
98.1 F 94 18 194/96 98
09/26/25 16:48 09/26/25 16:48 09/26/25 16:48 09/26/25 16:48 09/26/25 16:48
MDM/Problems Addressed
Differential Diagnosis Includes:
Exacerbation of chronic pancreatitis, gastroenteritis
MDM/Problems Addressed:
The patient is a 55-year-old female with a known history of chronic pancreatitis who presents with nausea and abdominal pain. She reports that the symptoms began 2 nights ago. The abdominal pain is described as a pinch in the middle of the abdomen
and episodically feels like her typical pancreatitis pain, though she mentions it occurs in different sections at different times. The pain level is over 10 out of 10. She experienced both diarrhea and constipation intermittently.
The patient has a history of taking narcotics for pain management related to her chronic pancreatitis. She has used Compazine (prochlorperazine) previously for nausea. A trial of prochlorperazine with diphenhydramine will be given as she has taken
Zofran with no relief. Dilaudid (hydromorphone) was also administered to manage acute pain.
Denies chest pain or shortness of breath. Denies fever.
1:55 PM:
CBC with no clinically significant abnormality
CMP normal
Lipase 3430
Troponin 0.025
Patient is resting seemingly comfortably, she is appreciative of the care
Plan: Admit: Acute exacerbation of chronic pancreatitis.
Hospitalist notified of admission
*Pulse Oximetry
SaO2: 98
Oxygen Mode of Delivery: Room air
Patient hypoxic: no
*EKG
EKG Intrepretation Date: 09/26/25
Heart Rate: 92
Rate: normal
Rhythm: sinus
[place]: normal axis
Interval: normal interval
QRS Pattern: normal QRS
Ischemia: no ischemia
*Critical Care Note
Total Time (30-74mins, 75-104mins- exclusive of procedures): Not Applicable
ED Attending Note
-
Portions of this chart may have been created with voice recognition software.� Occasional wrong word or��sound alike� substitutions may have occurred due to the inherent limitations of voice recognition software.
Discharge Plan
Departure
Patient Disposition: Admit
Date of Disposition: 09/26/25
Time of Disposition: 13:59
Admit to: Med/Surg
Presentation/result/management discussed w/ accepting MD/DO: Hospitalist
Condition: Fair
Discharge Problem:
Acute pancreatitis
Interventions
Interventions:
*Risk Screen - Suicide Last Done: 09/26/25 11:07
*General Assessment Last Done: 09/26/25 11:07
*Neglect/Abuse Screening Last Done: 09/26/25 11:07
*ED COVID-19 Vaccine History Last Done: 09/26/25 11:07
*ED Influenza Vaccine History Last Done: 09/26/25 11:07
*Nursing Disposition Last Done: 09/26/25 16:45
NX-Pjhmbq-Xgbetcmube Assessment Last Done: 09/26/25 12:47
Discharge Date and Time
Discharge Date/Time: 09/26/25 16:45
[2025-09-26] MEDS: DILAUDID 0.5 MG IV ×2 (12:32→16:00)
[2025-09-26] MEDS: BENADRYL 50 MG IV (12:32)
[2025-09-26] MEDS: NSS 1000 IV ×2 (12:33→14:05)
[2025-09-26] MEDS: COMPAZINE 10 MG IV (12:33)
[2025-09-26 12:40] LABS: Hematocrit 42.4 % (37.0-47.0); Hemoglobin 14.1 g/dL (12.0-16.0); Mean Corp Hgb Conc. 33.3 g/dL (33.0-37.0); Mean Corpuscular Volume 88.3 fL (81.0-99.0); Nucleated Red Blood Cells % 0 %; Platelet Count 297 10^3/uL (130-400); Red Cell Dist. Width 15.8 % (11.5-14.5)
[2025-09-26 12:47] LABS: ALT (SGPT) 15 U/L (0-35); AST (SGOT) 23 U/L (14-36); Albumin 4.8 g/dl (3.5-5.0); Alkaline Phosphatase 38 U/L (38-126); Blood Urea Nitrogen 19 mg/dl (7-17); Calcium 10.0 mg/dl (8.4-10.2); Carbon Dioxide 22 mmol/L (22-30); Chloride 103 mmol/L (98-107); Glucose 108 mg/dl (70-99); Potassium 4.4 mmol/L (3.5-5.1); Sodium 136 mmol/L (135-145); Total Protein 7.5 g/dl (6.3-8.2); eGFR > 60.00
[2025-09-26 12:59] LABS: Troponin I 0.025 ng/ml
[2025-09-26 13:04] LABS: Lipase 3430 U/L (23-300)
--- NOTE | 2025-09-26 14:10 | HPS.HSE ---
Family Physician
-
Family Physician: Lance Nina
Chief Complaint
-
Nausea and abdominal pain
History of Present Illness
55 y/o F with PMHx:
Chronic pancreatitis
Alcohol abuse disorder
Tobacco abuse disorder
HLD
CVA
GERD
Migraines
Depression
Anxiety
Idiopathic myopathy (with prior muscle biopsy)
Hepatic steatosis
Prediabetes
Pancreatic divisum
Cholecystectomy
Essential hypertension
Who p/w CCs abdominal pain and nausea. Patient reports 2 days ago her abdominal pain started and she had vomiting. Yesterday she ate nothing. Today she had 5-6 episodes of vomiting. She came to the ER for her persistent abdominal pain. She
states that her abdominal pain is epigastric and also in the right upper quadrant and left upper quadrant. She says sometimes she has pain in the back. Denies any fevers. Denies any other acute symptoms. States that she has not used alcohol
since her last hospitalization.
Medical History
Past Medical History
Past Medical History: Reports Other (as per HPI)
Past Surgical History: Reports Other (N/A)
Social History
Tobacco: Smoker
Alcohol: Chronic Alcoholic
Drug: None
Family History
Family History: Not pertinent
Allergies / Home Medications
Allergies reflects when Allergies were last updated in [employer].
Home Medications with original date entered in [employer]
Allergy/Medication List:
Allergies
Allergy/AdvReac Type Severity Reaction Status Date / Time
levofloxacin (From Levaquin) Allergy joint Verified 08/15/25 12:47
swelling
prednisone (Prednisone) Allergy joint Verified 08/15/25 12:47
swelling
steri strips Allergy Rash Uncoded 08/15/25 12:47
Home Medications
omeprazole 40 mg capsule,delayed release 40 mg PO DAILY Gastrointestinal issue 12/20/19
famotidine 20 mg tablet 20 mg PO HS Gastrointestinal Issue 05/06/20
bupropion HCl 150 mg 24 hr tablet, extended release (Wellbutrin XL) 150 mg PO DAILY Mental Health/Anxiety 06/26/23
evolocumab 140 mg/mL subcutaneous pen injector (Repatha SureClick) 140 mg SC Q2W High Cholesterol 06/26/23
hydrocodone 10 mg-acetaminophen 325 mg tablet 2 tab PO TID Pain 06/26/23
sertraline 100 mg tablet 200 mg PO DAILY Mental Health/Anxiety 06/26/23
fenofibrate nanocrystallized 145 mg tablet 145 mg PO DAILY High cholesterol #30 tabs 06/29/23
aspirin 81 mg tablet,delayed release 81 mg PO DAILY Blood Clot Prevention/Tx 06/02/25
olmesartan 40 mg tablet (Benicar) 40 mg PO DAILY High Cholesterol 06/02/25
ondansetron HCl 4 mg tablet 4 mg PO Q6HPRN PRN nausea 06/02/25
alprazolam 1 mg tablet 2 mg PO HS 08/15/25
fentanyl 75 mcg/hr transdermal patch 75 mcg transdermal Q72H 08/15/25
vortioxetine 10 mg tablet (Trintellix) 10 mg PO DAILY 08/15/25
zolpidem 10 mg tablet 10 mg PO HSPRN PRN sleep 08/15/25
albuterol sulfate 90 mcg/actuation aerosol inhaler 2 puff inhalation R Q6HPRN PRN sob 09/26/25
Review of Systems
-
History Source: Patient
A 12 point ROS was completed and negative except as noted: Yes
Physical Exam
Vital Signs
Vital Signs
Temp Pulse Resp BP Pulse Ox
98.2 F 81 12 176/78 96
09/26/25 11:07 09/26/25 13:15 09/26/25 12:38 09/26/25 13:00 09/26/25 13:15
Physical Exam
General: Other (.)
Laboratory Results
-
09/26/25 12:28
09/26/25 12:28
Laboratory Results
Total Bilirubin 0.7 mg/dl (0.2-1.3) 09/26/25 12:28
AST 23 U/L (14-36) 09/26/25 12:28
ALT 15 U/L (0-35) 09/26/25 12:28
Alkaline Phosphatase 38 U/L (38-126) 09/26/25 12:28
Troponin I 0.025 ng/ml 09/26/25 12:28
Lipase 3430 U/L (23-300) H* 09/26/25 12:28
Impression/Plan
-
Gen: NAD, AAOx3.
Eyes: EOMI, PERRLA, no scleral icterus.
Neck: supple.
CV: RRR, +S1/S2, no m/r/g.
Resp: CTAB, no rales, wheezes, or rhonchi.
Abd: +BS, soft, diffuse TTP greatest in the RUQ, ND
Skin: No rashes.
Neuro: CN 2-12 intact, non-focal.
Psych: Normal mood and affect.
Acute on chronic pancreatitis:
-LFTs normal, h/o cholecystectomy, lipase 3430
-cont IVFs with LR at high flow rate
-clears
-check CT A/P with IV contrast
-c/s GI
-pain control with Toradol/Dilaudid
Other problems:
Alcohol abuse disorder: h/o, pt states she has not used EtOH since last admission
Tobacco abuse disorder: counselled on smoking cessation, states she's cutting down
Chronic pain with chronic opioid use with dependence: Cont AG[employer]Y [employer]NER Fentanyl patch
HLD: on Repatha Q2W [employer]ENCY [employer]NER
Essential HTN: cont ARB
h/o CVA: on Repatha Q2W AGENCY [employer]NER, cont ASA
GERD: cont PPI
Migraines
Depression: cont Wellbutrin/Zoloft
Anxiety: cont Xanax/Wellbutrin/Zoloft
Idiopathic myopathy (with prior muscle biopsy)
Hepatic steatosis
Prediabetes
Pancreatic divisum
FULL/Lovenox
--- NOTE | 2025-09-26 15:55 | EDCM ---
Reviewed chart and met with pt bedside in ED. Pt lives with her in 2 story town home, [address], 16 steps to bedroom and bath.
Independent in ADLs, personal care and ambulation at baseline. No assistive devices. No DME.
Confirms prescription coverage.
No hx VN or SNF.
PCP: Lance Nina
Pharmacy: [facility]
CM will continue to follow for all discharge planning needs.
[2025-09-26] MEDS: REGLAN 10 MG IV (16:35)
--- NOTE | 2025-09-26 16:50 | PTCARENOTE ---
Patient arrived to unit. Patient tolerated ambulating from stretcher to bed. patient c/o pain, 06/20, not due for dilaudid at this time. Patient's BP continues to be elevated.194/96. MD Damon notified. New orders placed. home Fentanyl patch removed
and new patch placed. IV fluids administered per standing order. call stevens in reach. safety maintained. will continue to monitor.
[2025-09-26] MEDS: LR 1000 IV ×2 (17:19→21:23)
[2025-09-26] MEDS: LOVENOX 40 MG SC (17:21)
[2025-09-26] MEDS: TORADOL 15 MG IV (17:21)
[2025-09-26] MEDS: APRESOLINE 10 MG IV (17:22)
[2025-09-26] MEDS: REMOVE DURAGESIC PATCH 1 PATCH REMOVE (17:31)
[2025-09-26] MEDS: ZOFRAN 4 MG PO (20:09)
[2025-09-26] MEDS: DILAUDID 1 MG IV (20:12)
[2025-09-26] MEDS: PEPCID 20 MG PO (21:23)
[2025-09-26] MEDS: XANAX 2 MG PO (21:23)
[2025-09-27] MEDS: DILAUDID 1 MG IV ×6 (00:16→21:45)
[2025-09-27] MEDS: LR 1000 IV ×5 (01:16→18:31)
[2025-09-27 06:56] LABS: Hematocrit 32.3 % (37.0-47.0); Hemoglobin 10.4 g/dL (12.0-16.0); Mean Corp Hgb Conc. 32.2 g/dL (33.0-37.0); Mean Corpuscular Volume 94.4 fL (81.0-99.0); Platelet Count 226 10^3/uL (130-400); Red Cell Dist. Width 15.9 % (11.5-14.5)
--- NOTE | 2025-09-27 07:04 | W.PN.HOSP.TC ---
Addendum entered and electronically signed by Rubio Field MD 09/27/25 22:08:
Attending Addendum-
I saw and evaluated the patient. I reviewed the resident�s note and agree with findings and plan as documented in the resident�s note. Sub: Feels improved, ready to try solids. NV resolved. Denies fevers chills. Abd rad to back but more tolerable.
Had transient blurry vision in right eye, now resolved. Full 12 point ROS reviewed and negative except as documented Exam: Vitals reviewed in chart GEN-NAD heart RRR lungs clear abd TTP epigastric area ND pos BS no rebound guarding LE no edena Neruo
AAO x 3 MS 5/5 sensation intact vision intact
Plan:
#Acute on chronic Alcoholic pancreatitis
#Chronic pancreatitis/pancreatic divisum
- resolving
- decrease IVF
- IV Zofran as needed abdominal
- Continue fentanyl patch 75 mcg every 72 hours,
- Hydrocodone/acetaminophen 10/650 2 tabs 3 times daily
- IV Dilaudid 1 mg every 3 hours as needed severe pain
- advance diet
- Follow CBC, CMP
- CT 09/26-Findings again seen suspicious for acute pancreatitis most prominent involving the pancreatic head with likely secondary involvement and inflammatory changes of the adjacent distal stomach/duodenal and persistent mild pancreatic ductal
dilatation in comparison to recent prior study. Small pancreatic pseudocyst again suspected slightly smaller in size. Additional small cystic area with air-fluid level anteriorly in the right upper quadrant possibly representing a gastric/duodenal
diverticulum
- GI input appreciated, f/u as OP
#Alcohol use Disorder
- patient made aware needs complete cessation of alcohol
- advised counselled re complete abstinence
#Chronic abdominal pain with chronic opiate dependence
- Continue fentanyl patch 75 mcg every 72 hours,
- hydrocodone/acetaminophen 10/650 2 tabs 3 times daily
#Nicotine abuse
-Nicotine patch
-advised to quit
#Hepatic steatosis
#HTN
-cont olmesartan
# HLD
Hold fenofibrate, patient on Repatha 140 mg SQ every 2 weeks
#H/O CVA
#Depression/Anxiety-Continue alprazolam 1 mg p.o. 3 times daily, restart Wellbutrin, Zoloft, Trintellix
#GERD
#Insomnia-Continue Ambien 10 mg at bedtime as needed hold for sedation
DVT prophylaxis
Subcu Lovenox
Full code
Dispo- DC home in am
Time spent coordinating care, review of plan of care with resident, personally reviewed records in EMR, med rec, consults, notes, labs, radiology, d/w nursing � 51mins
Original Note:
Today's Communication/Plan
-
Supportive care
Low fat diet
Assessment / Plan
Assessment / Plan
A 55 y/o female with pmh of chronic pancreatitis, alcohol and tobacco use disorder, TIA, migraine, hypertension, hypercholesterolemia and anxiety/depression presented to ED on 09/26 with nausea, vomiting and abdominal pain. Her symptoms began 2
nights ago. She states her abdominal pain as epigastric and also in the right and left upper quadrant. Sometimes she has pain in the back
Acute on chronic pancreatitis:
-on exam RUQ tender to plapation, normal bs, soft
-LFTs normal, h/o cholecystectomy, lipase 3430
-cont IVFs with LR at 150ml/hr
-low fat diet
-consult GI, input appreciated
-pain control with Toradol/Dilaudid
-stopped drinking since last hospitalization
-currently smokes- trying to quit
CT A/P with IV contrast
Findings again seen suspicious for acute pancreatitis most prominent involving the pancreatic head with likely secondary involvement and inflammatory changes of the adjacent distal stomach/duodenal and persistent mild pancreatic ductal dilatation in
comparison to recent prior study. Small pancreatic pseudocyst again suspected slightly smaller in size. Additional small cystic area with air-fluid level anteriorly in the right upper quadrant possibly representing a gastric/duodenal diverticulum,
less likely an additional pseudocyst.
Prior cholecystectomy with slight prominence of the proximal intrahepatic biliary tract.
Small hiatal hernia with possible accompanying wall thickening, cannot exclude inflammation.
Acute Anemia
-Hb 10.4 repeat H&H 10.3
-Ordered cross & type
-Heme/occult
-Obtained blood transfusion consent
Constipation
-started bowel regimen
Blurry vision
-temporary normally pt wears reading glasses- symptom improved
-neurologic exam nonfocal, CN2-12 intact, AAAx3
Alcohol abuse disorder
-pt states she has not used EtOH since last admission
Tobacco abuse disorder
-counselled on smoking cessation
-states she's cutting down
Chronic pain with chronic opioid use with dependence
-Cont [employer]LECTROMECH[employer]ICAL EQUIPMENT [employer] Fentanyl patch
Hyperlipidemia
-on Repatha Q2W [employer]ROMECH[employer]ICAL EQU[employer]MENT TE[employer]
Essential HTN
-Cont ARB
h/o CVA
-on Repatha Q2W [employer]ROMECH[employer]ICAL EQUIPMENT TESTER
-cont ASA
GERD
-cont PPI
Depression/Anxiety
-cont Wellbutrin/Zoloft
Migraines
Idiopathic myopathy (with prior muscle biopsy)
Hepatic steatosis
Prediabetes
Anticipated Discharge: 24 - 48 hours
Subjective/Interval History
-
Date of Service: September 27, 2025
She has RUQ pain 9/10, epigastric area pain 7/10, back pain 4/10. She did not have any bms. She has nausea but no vomiting since yesterday.
She states that she has not used alcohol since her last hospitalization. Denies chest pain, shortness of breath. Denies fever.
She has blurry vision earlier and improved.
Objective Data
-
Labs:
Laboratory Results
09/27/25
05:49
WBC 8.2
Hgb 10.4 L D
Hct 32.3 L
Plt Count 226 D
Sodium Pending
Potassium Pending
Chloride Pending
Carbon Dioxide Pending
BUN Pending
Creatinine Pending
Glucose Pending
Calcium Pending
Total Bilirubin Pending
AST Pending
ALT Pending
Alkaline Phosphatase Pending
Vital Signs:
Vital Signs
Temp Pulse Resp BP Pulse Ox
98.5 F 77 18 140/69 96
09/26/25 23:03 09/26/25 23:03 09/26/25 23:03 09/26/25 23:03 09/26/25 23:03
Review of Systems
-
History Source: Patient
Constitutional: Reports No Symptoms
EENT: Reports No Symptoms Reported and Blurry Vision (improved)
Respiratory: Reports No Symptoms
Cardiac: Reports No Symptoms
Abdomen/GI: Reports Abdominal Pain and Constipated
Breast: Reports No Symptoms
Genitourinary: Reports No Symptoms
Musculoskeletal: Reports No Symptoms
Skin: Reports No Symptoms
Neuro: Reports No Symptoms
Endocrine: Reports No Symptoms
Hematologic / Lymphatic: Reports No Symptoms
Allergy / Immunology: Reports No Symptoms
Physical Exam
-
General: Well Developed, Well Nourished and Pain
HEENT: Normocephalic and Atraumatic
Respiratory: Clear to Auscultation
Cardiac: Regular Rhythm and S1/S2
Breast: Deferred by me
GI: Soft, Nondistended and Tender
Rectal: Deferred by Provider
Genito-urinary: Deferred by me
Musculoskeletal: No Clubbing, No Cyanosis and No Edema
Skin: Warm and Dry
Neuro: AO x 3, No Motor Deficits, Nonfocal/Grossly Intact, Central Nerve's Intact and No Sensory Deficits
Hematologic / Lymphatic: No Lymphadenopathy
[2025-09-27 07:32] LABS: ALT (SGPT) 11 U/L (0-35); AST (SGOT) 21 U/L (14-36); Albumin 3.1 g/dl (3.5-5.0); Alkaline Phosphatase 29 U/L (38-126); Blood Urea Nitrogen 15 mg/dl (7-17); Calcium 8.6 mg/dl (8.4-10.2); Carbon Dioxide 26 mmol/L (22-30); Chloride 105 mmol/L (98-107); Estimated Creatinine Clearance 92 ml/min; Glucose 75 mg/dl (70-99); Magnesium 1.8 mg/dl (1.6-2.3); Potassium 3.7 mmol/L (3.5-5.1); Sodium 135 mmol/L (135-145); Total Protein 5.2 g/dl (6.3-8.2); eGFR > 60.00
[2025-09-27 07:45] VITALS: BP 149/71
[2025-09-27] MEDS: ASPIR LOW (ENTERIC COATED) 81 MG PO (07:57)
[2025-09-27] MEDS: TRICOR 145 MG PO (07:58)
[2025-09-27] MEDS: PROTONIX 40 MG PO (07:58)
[2025-09-27] MEDS: COZAAR 100 MG PO (07:58)
[2025-09-27] MEDS: ZOLOFT 200 MG PO (07:58)
[2025-09-27] MEDS: ZOFRAN 4 MG PO ×2 (08:47→15:18)
--- NOTE | 2025-09-27 09:43 | CM ---
Patient seen at bedside on . Patient stated that she did not anticipate any needs at this time. Patient awaiting physician updates. CM will continue to follow for discharge planning needs.
Plan; home with no needs anticipated.
--- NOTE | 2025-09-27 10:33 | CON.GI ---
Addendum entered and electronically signed by David Crespo DO 09/27/25 11:53:
I saw and examined the patient.
The ELECTRONIC MASKING SYSTEM OPERATOR's note was reviewed and I agree with the note.
Comment: Ms Lala is a 55 y.o female with past medical history of recurrent acute pancreatitis (felt 2/2 prior EtOH, now abstaining), history of pancreatic divisum, known pancreatic pseudocyst, along with ongoing tobacco use and recent
hospitalization back on 08/2025 with acute recurrent pancreatitis (managed conservatively) who represents to the hospital with recurrent, acute abdominal pain consistent with her typical episodes of prior pancreatic pain. She denies any recurrent
alcohol use although continues to smoke. She recently saw Dr. Jiang back on 09/24/2025 as she is known well to him and was advised to continue to avoid alcohol as well as counseled regarding strict cessation of smoking/tobacco. She now represents
again with recurrent epigastric pain, nausea/vomiting consistent with her prior episodes of pancreatitis. Labs on admission revealed elevated lipase of 3430 and normal LFTs. CBC without evidence of leukocytosis and normal Hgb 14.1. CT imaging
revealed findings again suspicious for acute pancreatitis involving the pancreatic head and secondary involvement/inflammatory changes of the distal stomach/duodenum along with persistent mild pancreatic ductal dilatation as compared to previous
study. There was a small pancreatic pseudocyst which appeared smaller in size along with an additional small cystic area concerning for a diverticulum versus additional pseudocyst. Patient was previously advised to have a repeat MRI in 6 weeks
back on 08/2025 however opted to defer this during her previous outpatient visit. Reviewed patient's recent CT imaging and felt to be unchanged in discussion with Dr. Jiang this AM and can defer obtaining MRI/MRCP at this time. For now, recommend
ongoing supportive care with multi-modal pain control, IV fluids as well as slow advancement of diet as tolerated to low-fat diet. Again discussed the importance of continuing strict alcohol cessation as well as the need to quit smoking which may
be resulting in her ongoing recurrent episodes. She would still benefit from close follow-up with Dr. Jiang as an outpatient for continued management of her pancreatitis. Agree with rest of plan as outlined below.
GI will continue to follow, please call with any questions or concerns.
Original Note:
Consultation
-
Date/Time Consultation Requested: 09/26/25 1440
Date/Time Consultation Performed: 09/27/25 1030
Requesting Provider: Henry Damon MD
Performing Provider: YINKA Duvall, David Crespo DO
Reason for Consultation: pancreatitis
Medical History
Chief Complaint / HPI
Chief Complaint: abdominal pain
History of Present Illness:
Pt is a 53yo with hx CVA, migraines, depression, anxiety, CKD, idiopathic myopathy (with prior muscle biopsy), hepatic steatosis, colon polyps, migraines, diverticulitis, pre DM, pancreatic divisum, ETOH and tobacco abuse with last ETOH in
June but continued tobacco abuse, prior pseudocyst and prior ara in 2009. In reviewing records hx pancreatitis initially in 2019. MRI at that time with small pseudocyst and pancreatic divisum. She had recurrence in [address] with
14 mm cystic lesion likely pseudocyst and MRI with 4.2 x 1.6 cm multilobulated cyst posterior neck of pancreas, suggest pseudocyst. She completed EUS 09/2023-with Dr. Jiang Normal esophagus. no lesion in stomach, normal duodenum, normal MPD,
pancreatic abnormality c/w diffuse echogenicity, stranding and hyper foci without cyst or pseudocyst, dilation CBD 8 mm cystic lesion 16 x 70 mm left kidney and recommended ETOH and tobacco abstinence. At some point she went to Dr. Shi at
[facility]-- recommended chronic pain management and Dr. Henderson at [facility] completed PETH testing with elevation and recommended ETOH/tobacco abstinence. She has been following with Dr. Jiang. In May she completed 06/01 EGD with
erythema, enlarged gastric folds and erythematous duodenopathy and EUS with concern for chronic vs early pancreatitis with tortuous ectatic panc duct, and hypoechoic wall of main panc duct with pancreatic duct 3 mm, dilation of CBD 10mm no ampulla
or left liver pathology no specimen collected. She was readmitted after procedure with acute on chronic pancreatitis in May. She then had admission in August with nausea, vomiting, and upper abdominal pain with concern for continued
ETOH/tobacco use. CT on admission with acute edematous pancreatitis with large amount of peripancreatic inflammation and small amount of non loculated peripancreatic fluid, chronic 1.7 cm chronic pseudocyst, reactive wall thickening of stomach and
duodenum, hepatic steatosis, 2 cm proximal CBD stricture, intrahepatic biliary dilatation, prior ara, mild colitis and ascites. She had follow up last week with Dr. Jiang but recommended continued ETOH and need for tobacco abstinence. She now
returns with nausea, vomiting, abdominal pain and continued wt loss. On return lipase 3430 with normal LFT's an CBC. CT with Findings again seen suspicious for acute pancreatitis most prominent involving the pancreatic head with likely secondary
involvement and inflammatory changes of the adjacent distal stomach/duodenal and persistent mild pancreatic ductal dilatation in comparison to recent prior study. Small pancreatic pseudocyst again suspected slightly smaller in size. Additional small
cystic area with air-fluid level anteriorly in the right upper quadrant possibly representing a gastric/duodenal diverticulum, less likely an additional pseudocyst.Prior cholecystectomy with slight prominence of the proximal intrahepatic biliary
tract. Small hiatal hernia with possible accompanying wall thickening, cannot exclude inflammation.
In review with patient she admits to decline over last year with continued wt loss . She was seeing pain management with Dr. Ocampo in past but did not keep up with monthly testing and now pain management with PCP Dr. Hernández and remain on
Vicodin and Fentanyl patch. She states she has had celiac plexus block in past long with narcotic management. She admits to continued pain and vomiting and vomiting which prompted recurrent admission. Pain is variable and migratory. Last
admission was left sided now right sided. Pain in sharp and constant. She admits to hx dysphagia with pills, + GERD on chronic famotidine and Omeprazole, + wt loss 70 lbs over last 1-2 years. She also admits to chronic constipation. She
denies diarrhea, blood or black in stools. Pt has tried pancreatic enzymes in past without improvement and stopped. On admission hbg 14.1 with drop to 10 after admission with normal LFT's and lipase 3430.
Past Medical History
Past Medical History: CVA, HTN, Hypercholesterolemia, Renal Failure (CKD) and Other (hepatic steatosis, migraines, diverticulitis, pre DM, ovarian cyst, ideopathic myopathy , insomnia, anxiety/depression, acute on chronic pancreatitis, pancreatic
divisum, pseudocyst, colon polyps)
Past Surgical History: Cholecystectomy, Gynecological (ovarian cyst surgery ) and Other (hernia repair )
Social History
Tobacco: Smoker (11/14)
Alcohol: Former (states she quit ? June )
Drug: None
Personal:
Living: With Family
Employment: Not Employed
Family History
Family History: Other (no family hx pancreatitis, uncle with colon polyps, mother with colon polyps)
Allergies / Home Medications
Allergy/AdvReac Type Severity Reaction Status Date / Time
levofloxacin (From Levaquin) Allergy joint Verified 08/15/25 12:47
swelling
prednisone (Prednisone) Allergy joint Verified 08/15/25 12:47
swelling
steri strips Allergy Rash Uncoded 08/15/25 12:47
�Medication �Instructions �Recorded
omeprazole 40 mg capsule,delayed 40 mg PO DAILY Gastrointestinal 12/20/19
release issue
famotidine 20 mg tablet 20 mg PO HS Gastrointestinal Issue 05/06/20
bupropion HCl 150 mg 24 hr tablet, 150 mg PO DAILY Mental 06/26/23
extended release (Wellbutrin XL) Health/Anxiety
evolocumab 140 mg/mL subcutaneous 140 mg SC Q2W High Cholesterol 06/26/23
pen injector (Repatha SureClick)
hydrocodone 10 mg-acetaminophen 2 tab PO TID Pain 06/26/23
325 mg tablet
sertraline 100 mg tablet 200 mg PO DAILY Mental 06/26/23
Health/Anxiety
fenofibrate nanocrystallized 145 145 mg PO DAILY High cholesterol 06/29/23
mg tablet #30 tabs
aspirin 81 mg tablet,delayed 81 mg PO DAILY Blood Clot 06/02/25
release Prevention/Tx
olmesartan 40 mg tablet (Benicar) 40 mg PO DAILY High Cholesterol 06/02/25
ondansetron HCl 4 mg tablet 4 mg PO Q6HPRN PRN nausea 06/02/25
alprazolam 1 mg tablet 2 mg PO HS 08/15/25
fentanyl 75 mcg/hr transdermal 75 mcg transdermal Q72H 08/15/25
patch
vortioxetine 10 mg tablet 10 mg PO DAILY 08/15/25
(Trintellix)
zolpidem 10 mg tablet 10 mg PO HSPRN PRN sleep 08/15/25
albuterol sulfate 90 mcg/actuation 2 puff inhalation R Q6HPRN PRN sob 09/26/25
aerosol inhaler
Review of Systems
-
History Source: Patient
Constitutional: Reports Weight Loss and Fatigue
EENT: Reports No Symptoms
Respiratory: Reports Trouble Breathing (at times )
Cardiac: Reports Chest Pain (at time with abdominal pain )
Abdomen/GI: Reports Abdominal Pain (left sided last admission now right sided ), Nausea and Constipated
: Reports No Symptoms
Musculoskeletal: Reports Other (back pain)
Skin: Reports No Symptoms
Neurological: Reports Weakness
Endocrine: Reports No Symptoms
Hematologic/Lymphatic: Reports No Symptoms
Vital Signs
Temp Pulse Resp BP Pulse Ox
98.0 F 70 16 149/71 96
09/27/25 07:45 09/27/25 07:45 09/27/25 07:45 09/27/25 07:45 09/27/25 07:45
Physical Exam
Exam
General: Well Developed, Well Nourished and No Apparent Distress
HEENT: Normocephalic and Anicteric
Respiratory: Clear
Cardiac: Regular Rhythm
GI: Soft, Tender (right sided abdominal pain ) and Distended (mild )
Musculoskeletal: No Clubbing and No Cyanosis
Skin: Warm and Dry
Neuro: Oriented (sleepy but arousable )
Psych: Calm
Results
WBC 8.2 10^3/uL (4.8-10.8) 09/27/25 05:49
Hgb 10.4 g/dL (12.0-16.0) L D 09/27/25 05:49
Hct 32.3 % (37.0-47.0) L 09/27/25 05:49
MCV 94.4 fL (81.0-99.0) 09/27/25 05:49
Plt Count 226 10^3/uL (130-400) D 09/27/25 05:49
Absolute Neuts (auto) 6.8 10^3/uL (1.4-6.5) H 09/26/25 12:28
Sodium 135 mmol/L (135-145) 09/27/25 05:49
Potassium 3.7 mmol/L (3.5-5.1) 09/27/25 05:49
Chloride 105 mmol/L (98-107) 09/27/25 05:49
Carbon Dioxide 26 mmol/L (22-30) 09/27/25 05:49
BUN 15 mg/dl (7-17) 09/27/25 05:49
Creatinine 0.7 mg/dL (0.6-1.0) 09/27/25 05:49
Calcium 8.6 mg/dl (8.4-10.2) 09/27/25 05:49
Total Bilirubin 0.4 mg/dl (0.2-1.3) 09/27/25 05:49
AST 21 U/L (14-36) 09/27/25 05:49
ALT 11 U/L (0-35) 09/27/25 05:49
Alkaline Phosphatase 29 U/L (38-126) L 09/27/25 05:49
Lipase 3430 U/L (23-300) H* 09/26/25 12:28
Diagnostic Image Results:
09/26/25 CT Abd/Pel (IV only)-DH only
Findings again seen suspicious for acute pancreatitis most prominent involving the pancreatic head with likely secondary involvement and inflammatory changes of the adjacent distal stomach/duodenal and persistent mild pancreatic ductal dilatation in
comparison to recent prior study. Small pancreatic pseudocyst again suspected slightly smaller in size. Additional small cystic area with air-fluid level anteriorly in the right upper quadrant possibly representing a gastric/duodenal diverticulum,
less likely an additional pseudocyst.
Prior cholecystectomy with slight prominence of the proximal intrahepatic biliary tract.
Small hiatal hernia with possible accompanying wall thickening, cannot exclude inflammation.
additional nonurgent findings, as detailed above
08/15/25 CT Abd/pelvis W Iv Cont
1. ACUTE INTERSTITIAL EDEMATOUS PANCREATITIS with a large amount of peripancreatic inflammation and a small amount of nonloculated peripancreatic fluid.
2. 1.7 cm chronic pseudocyst in the pancreatic head.
3. Moderate reactive wall thickening in the distal stomach and duodenum.
4. Mild diffuse hepatic steatosis.
5. 2 cm in length STRICTURE in the PROXIMAL COMMON BILE DUCT.
6. Mild intrahepatic biliary dilatation.
7. Previous cholecystectomy.
8. Mild colitis in the transverse and descending colon.
9. Minimal ascites.
06/02/25- CT a/p
Inflammation centered at the head of the pancreas most suspicious for pancreatitis. Recommend correlation with lipase levels. Probable small developing pseudocysts of the pancreatic head/neck and posterior pancreatic body.
05/28/25- US abdomen
1. Status post cholecystectomy. Mild dilation of the common bile duct measures 1.1 cm in diameter, which may be within normal limits following cholecystectomy. Please correlate with serum bilirubin levels to exclude biliary obstruction.
2. No additional sonographic abnormalities demonstrated.
03/27/25 CT A/p
There is stranding and edema within the right upper quadrant adjacent to the distal stomach/proximal duodenum and pancreatic head. Findings may represent pancreatitis or gastritis/duodenitis possibly the setting of a small gastric ulcer Recommend
correlation with lipase.
Hepatic steatosis, similar to prior.
02/26/25 CT A/p IV only
Nonspecific inflammatory changes in the right upper quadrant between the head of the pancreas, duodenum, and along the course of the common bile duct. Etiology uncertain. Possible considerations include duodenitis, pancreatitis, or ascending
cholangitis. Mild distention of the common bile duct, 12 mm. No intrahepatic ductal dilatation.
Mild hepatomegaly with fatty infiltration.
05/26/24 CT A/p
Small multiloculated cystic lesion involving the head of the pancreas overall with slightly greater surrounding inflammatory changes in comparison with relative recent prior CT March 16, 2024. Findings most likely representing a pancreatic pseudocyst.
Superimposed changes of acute pancreatitis are also likely.. Recommend correlation with serum lipase.
Mild hepatomegaly with diffuse fatty liver.
Prior cholecystectomy. No findings to suggest biliary tract dilatation.
Simple left renal cyst and additional two subcentimeter low-attenuation left renal lesions too small to characterize.
02/02/25 MR Abdomen W/o & W Contrast
New 2.2 cm in length segment of narrowing involving the mid common bile duct suspicious for a developing stricture.
1.9 cm cystic lesion of the posterior pancreatic head, decreased in size compared to the abdominal MRI from 08/16/2023. Smaller 0.7 cm cystic focus in the anterior pancreatic head. Both are favored to represent pancreatic pseudocysts in the setting
of previous pancreatitis.
Severe hepatic steatosis and mild hepatomegaly.
03/16/24 CT A/p IV only
IMPRESSION: Within the visualized lower lungs, scattered linear and groundglass opacities, increased compared to CT scan of October 19 2023. This most likely represents atelectasis, but please correlate with any symptoms that would suggest
pneumonitis.
Multilobulated cystic mass within the head of the pancreas and extending superiorly adjacent to the caudate lobe of the liver as well as posterior to the lateral segment left lobe liver. This is likely a pseudocyst, which has increased in size
compared to examination October 19 2023.
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 There is also narrowing of the main portal vein as a result of this presumed pseudocyst.
12/2020 MRI adomen
1. Complete resolution of the previously identified pseudocysts in the pancreatic head and tail.
2. Pancreatic divisum morphology.
3. Severe hepatic steatosis.
4. Prior cholecystectomy.
5. Stable renal cysts.
04/2020
1. 1.9 cm multiseptated PSEUDOCYST anterior to the pancreatic tail.
2. 1.2 cm multiseptated PSEUDOCYST in the inferior aspect of the pancreatic head.
3. Minimal amount of residual pancreatic edema anterior to the pancreatic body and tail.
4. PANCREATIC DIVISUM.
5. SEVERE DIFFUSE HEPATIC STEATOSIS and mild hepatomegaly.
6. Multiple benign-appearing left renal cysts.
7. Mild biliary dilatation without choledocholithiasis or obstructing mass.
8. Prior cholecystectomy.
Prior GI Procedures:
EGD: 2020 - - Tortuous esophagus - no visible erosions seen.
Biopsied
- Erythematous mucosa in the gastric body. Biopsied.
- Normal examined duodenum.
Colonoscopy: 2020- - One 9 mm polyp in the rectum, removed with a cold
snare. Resected and retrieved. tx TA
- Non-bleeding internal hemorrhoids
EUS 09/2023-with Dr. Jiang Normal esophagus. no lesion in stomach, normal duodenum, normal MPD, pancreatic abnormality c/w diffuse echogenicity, starnd and hypercheoic foci, dilation CBD 8 mm cystic lesion 16 x 70 mm left kidney
06/01/25 EGD - Normal esophagus.
- Erythematous mucosa in the gastric body. Biopsied.
- Enlarged gastric folds. Biopsied.
- Erythematous duodenopathy.
06/01/25 EUS
- Pancreatic parenchymal abnormalities consisting of hyperechoic
strands, hyperechoic foci with shadowing, diffusely increased
echogenicity and lobularity without honeycombing were noted in the
pancreatic head and genu of the pancreas. Overall this is
indeterminate for chronic pancreatitis vs early chronic pancreatitis.
- The pancreatic duct had a tortuous/ectatic appearance and had
hyperechoic rodriguez in the main pancreatic duct. The pancreatic duct
measured up to 3 mm in diameter.
- There was dilation in the common bile duct which measured up to
10 mm.
- There was no sign of significant pathology in the ampulla.
- There was no evidence of significant pathology in the left lobe
of the liver.
- No specimens collected.
Assessment / Plan
-
Pt is a 53yo with hx CVA, migraines, depression, anxiety, CKD, idiopathic myopathy (with prior muscle biopsy), hepatic steatosis, colon polyps, migraines, diverticulitis, pre DM, pancreatic divisum, ETOH and tobacco abuse with last ETOH in
June but continued tobacco abuse, prior pseudocyst and prior ara in 2009. She began with issues with pancreatitis since 2019 with noted pseudocyst and panc divisum at that time. She had recurrence in 2022 and completed EUS 09/2023-with
Apolinar Normal esophagus. no lesion in stomach, normal duodenum, normal MPD, pancreatic abnormality c/w diffuse echogenicity, stranding and hyper foci without cyst or pseudocyst, dilation CBD 8 mm cystic lesion 16 x 70 mm left kidney and recommended
ETOH and tobacco abstinence. At some point she went to Dr. Shi at [facility]-- recommended chronic pain management and Dr. Henderson at [facility] completed PETH testing with elevation and recommended ETOH/tobacco abstinence. She has been
following with Dr. Jiang. In May she completed EGD and EUS and was readmitted after procedure with acute on chronic pancreatitis. She then had admission in August with nausea, vomiting, and upper abdominal pain with concern for continued
ETOH/tobacco use. She had follow up last week with Dr. Jiang but recommended continued ETOH and need for tobacco abstinence. She now returns with nausea, vomiting, abdominal pain and continued wt loss. On return lipase 3430 with normal LFT's an CBC.
Recent testing:
09/26/25 CT a/p (IV only)- acute pancreatitis most prominent involving the pancreatic head w/inflammatory changes of the adjacent distal stomach/duodenal and persistent mild PD dilation, Small pancreatic pseudocyst . Additional small cystic area
with air-fluid level anteriorly in the right upper quadrant possibly representing a gastric/duodenal diverticulum, less likely an additional pseudocyst. prior chol, small HH
08/15/25- CT A/p IV acute pancreatitis large amt inflammation, small non loculated fluids, 1.7 cm chronic head pseudocyst, stomach/duodenal thickening, 2 cm stricture CBD, mild intrahepatic dilation, pior ara, mild colitis
06/02/25- CT a/p Inflammation centered at the head of the pancreas s/w pancreatitis. Recommend correlation with lipase levels. Probable small pseudocysts of the pancreatic head/neck and posterior pancreatic body.
06/01/25 EUS Pancreatic parenchymal abnormalities consisting of hyperechoic strands, hyperechoic foci with shadowing, diffusely increased echogenicity and lobularity without honeycombing were noted in the
pancreatic head and genu of the pancreas. Overall this is indeterminate for chronic pancreatitis vs early chronic pancreatitis. The pancreatic duct had a tortuous/ectatic appearance and had
hyperechoic rodriguez in the main pancreatic duct. The pancreatic duct measured up to 3 mm in diameter. There was dilation in the common bile duct which measured up to
10 mm. There was no sign of significant pathology in the ampulla. There was no evidence of significant pathology in the left lobe
of the liver. No specimens collected.
06/01/25 EGD - Normal esophagus. Erythematous mucosa in the gastric body. Biopsied.Enlarged gastric folds. Biopsied. Erythematous duodenopathy.
-abdominal pain with concern for acute on chronic pancreatitis-
-s/p EGD/EUS 06/01
-recent CT with concern for 2 cm CBD stricture
-prior imaging with multiloculated cystic lesion head of pancreas with inflammatory changes
-pancreatic divisum anatomy
-ETOH and Tobacco use
-wt loss
-anemia with drop in hbg after fluid on admission
other medical problems:
-prior noted renal cyst on EUS 2022
-hepatomegaly
-CVA
-migraines
-depression/anxiety
-idiopathic myopathy
-hepatic steatosis
-migraines
-diverticulitis
-pre DM
-migraines
PLAN:
etiology of symptoms with concern for recurrent pancreatitis with hx ETOH/tobacco use
Ct and recent imaging reviewed
cont IVF
pain control per hospitalist and follows with PCP for chronic pain issues
pt with some improvement ok for low fat diet
pain control per hospitalist
Dr. Crespo to review with Dr. Jiang
I stressed to patient ETOH and Tobacco abstinence that has been recommended multiple times past 5 days
hold MRI but consider if not improving
-
-
-
Thank you for consultation and allowing me to participate in the patient's care. Please call the professor of physical education GI physician during the after hours with any questions or concerns.
[2025-09-27 12:55] LABS: Hematocrit 32.5 % (37.0-47.0); Hemoglobin 10.3 g/dL (12.0-16.0)
[2025-09-27] MEDS: DILAUDID 0.5 MG IV (14:56)
[2025-09-27 15:45] VITALS: BP 161/79
[2025-09-27] MEDS: LOVENOX 40 MG SC (17:34)
[2025-09-27] MEDS: TORADOL 15 MG IV (17:37)
[2025-09-27] MEDS: COLACE 100 MG PO (19:34)
[2025-09-27] MEDS: XANAX 2 MG PO (21:08)
[2025-09-27] MEDS: PEPCID 20 MG PO (21:08)
[2025-09-27 23:32] VITALS: BP 113/56
[2025-09-28] MEDS: LR 1000 IV ×2 (01:02→07:51)
[2025-09-28] MEDS: DILAUDID 1 MG IV ×2 (02:49→06:13)
--- NOTE | 2025-09-28 06:08 | W.PN.GI.CBS2 ---
Today's Communication / Plan
-
Tolerating LFD with improvement of symptoms. Continue ongoing multi-modal pain control, anti-emetics along with ongoing supportive care as primary team. Again discussed importance of ongoing EtOH and smoking cessation. Recommend close outpatient f/u
with Dr. Jiang. GI will sign-off, please recontact with any questions or concerns.
Assessment / Plan
-
#Acute on Chronic, Recurrent Pancreatitis
#Previously felt 2/2 EtOH Pancreatitis
#Hx of Pancreatic Divisum
#Hx of Prior CCY
#Hx of AUD
#Smoking
Ms Lala is a 55 y.o female with past medical history of recurrent acute pancreatitis (felt 2/2 prior EtOH, now abstaining), history of pancreatic divisum, known pancreatic pseudocyst, along with ongoing tobacco use and recent hospitalization back
on 08/2025 with acute recurrent pancreatitis (managed conservatively) who represents to the hospital with recurrent, acute abdominal pain consistent with her typical episodes of prior pancreatic pain. She denies any recurrent alcohol use although
continues to smoke. She recently saw Dr. Jiang back on 09/24/2025 as she is known well to him and was advised to continue to avoid alcohol as well as counseled regarding strict cessation of smoking/tobacco. She now represents again with recurrent
epigastric pain, nausea/vomiting consistent with her prior episodes of pancreatitis. Labs on admission revealed elevated lipase of 3430 and normal LFTs. CBC without evidence of leukocytosis and normal Hgb 14.1. CT imaging revealed findings again
suspicious for acute pancreatitis involving the pancreatic head and secondary involvement/inflammatory changes of the distal stomach/duodenum along with persistent mild pancreatic ductal dilatation as compared to previous study. There was a small
pancreatic pseudocyst which appeared smaller in size along with an additional small cystic area concerning for a diverticulum versus additional pseudocyst. Patient was previously advised to have a repeat MRI in 6 weeks back on 08/2025 however opted
to defer this during her previous outpatient visit. Reviewed patient's recent CT imaging and felt to be unchanged in discussion with Dr. Jiang felt to defer obtaining MRI/MRCP at this time.
Prior GI Work-up / Mariano Review:
09/26/25 CT a/p (IV only)- acute pancreatitis most prominent involving the pancreatic head w/inflammatory changes of the adjacent distal stomach/duodenal and persistent mild PD dilation, Small pancreatic pseudocyst . Additional small cystic area
with air-fluid level anteriorly in the right upper quadrant possibly representing a gastric/duodenal diverticulum, less likely an additional pseudocyst. prior chol, small HH
08/15/25- CT A/p IV acute pancreatitis large amt inflammation, small non loculated fluids, 1.7 cm chronic head pseudocyst, stomach/duodenal thickening, 2 cm stricture CBD, mild intrahepatic dilation, pior ara, mild colitis
06/02/25- CT a/p Inflammation centered at the head of the pancreas s/w pancreatitis. Recommend correlation with lipase levels. Probable small pseudocysts of the pancreatic head/neck and posterior pancreatic body.
06/01/25 EUS Pancreatic parenchymal abnormalities consisting of hyperechoic strands, hyperechoic foci with shadowing, diffusely increased echogenicity and lobularity without honeycombing were noted in the
pancreatic head and genu of the pancreas. Overall this is indeterminate for chronic pancreatitis vs early chronic pancreatitis. The pancreatic duct had a tortuous/ectatic appearance and had
hyperechoic rodriguez in the main pancreatic duct. The pancreatic duct measured up to 3 mm in diameter. There was dilation in the common bile duct which measured up to
10 mm. There was no sign of significant pathology in the ampulla. There was no evidence of significant pathology in the left lobe
of the liver. No specimens collected.
06/01/25 EGD - Normal esophagus. Erythematous mucosa in the gastric body. Biopsied.Enlarged gastric folds. Biopsied. Erythematous duodenopathy.
Recommendations:
- Continue LFD as tolerated
- May stop additional IVF since tolerating p.o intake
- Can defer further imaging (ie MRI/MRCP) in d/w Dr. Jiang given recent CT and previous EUS. Ultimately, needs to f/u with Dr. Jiang as outpatient
- Continue multi-modal pain control and anti-emetics PRN
- Discussed importance of ongoing EtOH cessation and smoking cessation as patient continues to smoke
- Rest of ongoing supportive care as per primary team
Discussed with primary internal medicine team. GI will sign-off, please recontact with any questions or concerns.
Subjective
Subjective
Date of Service: September 28, 2025
- Diet advanced to LFD on 09/27, otherwise no acute events overnight
Feeling better this morning, still with some epigastric discomfort but notes improving symptoms. Was able to tolerate LFD without difficulty. Denies any nausea or vomiting.
Objective
Data Reviewed
Laboratory Data:
Laboratory Results
Magnesium 1.8 mg/dl (1.6-2.3) 09/27/25 05:49
Total Bilirubin 0.4 mg/dl (0.2-1.3) 09/27/25 05:49
AST 21 U/L (14-36) 09/27/25 05:49
ALT 11 U/L (0-35) 09/27/25 05:49
Alkaline Phosphatase 29 U/L (38-126) L 09/27/25 05:49
Lipase 3430 U/L (23-300) H* 09/26/25 12:28
Vital Signs and I&O:
Vital Signs
Temp Pulse Resp BP Pulse Ox
98.5 F 68 14 113/56 95
09/27/25 23:32 09/27/25 23:32 09/27/25 23:32 09/27/25 23:32 09/27/25 23:32
I&O
09/26/25 09/27/25 09/28/25
06:59 06:59 06:59
Intake Total 4250 / 4250
Balance 4250 / 4250
Physical Exam
Physical Exam
HEENT: Anicteric and Moist mucous membranes
Pulmonary: Other (Normal WOB on room air)
GI: Soft, Non Distended and Tender (Mild TTP in epigastric region)
Extremities: Warm
Neuro: Non Focal
[2025-09-28 06:55] LABS: Hematocrit 30.7 % (37.0-47.0); Hemoglobin 9.7 g/dL (12.0-16.0); Mean Corp Hgb Conc. 31.6 g/dL (33.0-37.0); Mean Corpuscular Volume 92.5 fL (81.0-99.0); Platelet Count 207 10^3/uL (130-400); Red Cell Dist. Width 16.0 % (11.5-14.5)
[2025-09-28 07:38] VITALS: BP 135/66
[2025-09-28] MEDS: ASPIR LOW (ENTERIC COATED) 81 MG PO (07:50)
[2025-09-28] MEDS: COLACE 100 MG PO (07:50)
[2025-09-28] MEDS: ZOLOFT 200 MG PO (07:50)
[2025-09-28] MEDS: TRICOR 145 MG PO (07:50)
[2025-09-28] MEDS: PROTONIX 40 MG PO (07:50)
[2025-09-28] MEDS: COZAAR 100 MG PO (07:50)
[2025-09-28] MEDS: WELLBUTRIN XL (24 hour extended release) 150 MG PO (07:51)
[2025-09-28 08:12] LABS: Blood Urea Nitrogen 9 mg/dl (7-17); Calcium 8.8 mg/dl (8.4-10.2); Carbon Dioxide 31 mmol/L (22-30); Chloride 106 mmol/L (98-107); Estimated Creatinine Clearance 92 ml/min; Glucose 74 mg/dl (70-99); Potassium 4.0 mmol/L (3.5-5.1); Sodium 138 mmol/L (135-145); eGFR > 60.00
--- NOTE | 2025-09-28 09:17 | W.PN.HOSP.TC ---
Addendum entered and electronically signed by Rubio Field MD 09/28/25 23:28:
Attending Addendum-
I saw and evaluated the patient. I reviewed the resident�s note and agree with findings and plan as documented in the resident�s note. Sub: Tolerating solids without difficulty. Denies NV. Appears comfortable but complains of back pain. Denies
fevers chills. no further vision changes. requesting IV pain meds prior to DC. Full 12 point ROS reviewed and negative except as documented Exam: Vitals reviewed in chart GEN-NAD heart RRR lungs clear abd NT ND pos BS no rebound guarding LE no
edema Neruo AAO x 3 MS 5/ sensation intact vision intact Back- NTTP
Plan:
#Acute on chronic Alcoholic pancreatitis
#Chronic pancreatitis/pancreatic divisum
- resolving
- DC IVF
- IV Zofran as needed abdominal
- Continue fentanyl patch 75 mcg every 72 hours,
- Hydrocodone/acetaminophen 10/650 2 tabs 3 times daily
- IV Dilaudid 1 mg x 1
- kaylee diet
- Follow CBC, CMP
- CT 09/26-Findings again seen suspicious for acute pancreatitis most prominent involving the pancreatic head with likely secondary involvement and inflammatory changes of the adjacent distal stomach/duodenal and persistent mild pancreatic ductal
dilatation in comparison to recent prior study. Small pancreatic pseudocyst again suspected slightly smaller in size. Additional small cystic area with air-fluid level anteriorly in the right upper quadrant possibly representing a gastric/duodenal
diverticulum
- GI input appreciated, f/u as OP
- avoid ETOH and tobacco
#Alcohol use Disorder
- patient made aware needs complete cessation of alcohol
- advised counselled re complete abstinence
#Chronic abdominal pain with chronic opiate dependence
- Continue fentanyl patch 75 mcg every 72 hours,
- hydrocodone/acetaminophen 10/650 2 tabs 3 times daily
#Nicotine abuse
-Nicotine patch
-advised to quit
#Hepatic steatosis
#HTN
-cont olmesartan
# HLD
cont fenofibrate, patient on Repatha 140 mg SQ every 2 weeks
#H/O CVA
#Depression/Anxiety-Continue alprazolam per home regimin, restart Wellbutrin, Zoloft, Trintellix
#GERD
#Insomnia-Continue Ambien 10 mg at bedtime as needed hold for sedation
DVT prophylaxis
Subcu Lovenox
Full code
Dispo- DC home today
Time spent coordinating care, DC planning, review of DC plan of care with resident, transition of care, review of records, med rec/scripts sent electronically, consults, notes, d/w consultants, nursing, GI, and CM� 32 mins >50% of this time was
devoted to counseling and coordination of care
Original Note:
Today's Communication/Plan
-
Discharge today
Assessment / Plan
Assessment / Plan
A 55 y/o female with pmh of chronic pancreatitis, alcohol and tobacco use disorder, TIA, migraine, hypertension, hypercholesterolemia and anxiety/depression presented to ED on 09/26 with nausea, vomiting and abdominal pain. Her symptoms began 2
nights ago. She states her abdominal pain as epigastric and also in the right and left upper quadrant. Sometimes she has pain in the back
Acute on chronic pancreatitis:
-on exam RUQ tender to plapation, normal bs, soft
-LFTs normal, h/o cholecystectomy, lipase 3430
-cont IVFs with LR at 150ml/hr
-low fat diet
-consult GI, input appreciated
-pain control with Toradol/Dilaudid
-stopped drinking since last hospitalization
-currently smokes- trying to quit
-improving
CT A/P with IV contrast
Findings again seen suspicious for acute pancreatitis most prominent involving the pancreatic head with likely secondary involvement and inflammatory changes of the adjacent distal stomach/duodenal and persistent mild pancreatic ductal dilatation in
comparison to recent prior study. Small pancreatic pseudocyst again suspected slightly smaller in size. Additional small cystic area with air-fluid level anteriorly in the right upper quadrant possibly representing a gastric/duodenal diverticulum,
less likely an additional pseudocyst.
Prior cholecystectomy with slight prominence of the proximal intrahepatic biliary tract.
Small hiatal hernia with possible accompanying wall thickening, cannot exclude inflammation.
Acute Anemia
-Hb 10.4 repeat H&H 10.3
-Ordered cross & type
-Heme/occult
-Obtained blood transfusion consent
-High likely from IVF dilution
Constipation
-started bowel regimen
-improved
Blurry vision
-temporary normally pt wears reading glasses- symptom improved
-neurologic exam nonfocal, CN2-12 intact, AAAx3
Alcohol abuse disorder
-pt states she has not used EtOH since last admission
Tobacco abuse disorder
-counselled on smoking cessation
-states she's cutting down
Chronic pain with chronic opioid use with dependence
-Cont [employer] Fentanyl patch
Hyperlipidemia
-on Repatha Q2W [employer]
Essential HTN
-Cont ARB
h/o CVA
-on Repatha Q2W [employer]
-cont ASA
GERD
-cont PPI
Depression/Anxiety
-cont Wellbutrin/Zoloft
Migraines
Idiopathic myopathy (with prior muscle biopsy)
Hepatic steatosis
Prediabetes
Anticipated Discharge: Today
Subjective/Interval History
-
Date of Service: September 28, 2025
She did not have bms yet. She refused to take miralax stating nurse she is usually constipated at home. She took Colase. Holly denies nausea, vomiting, fever. She has pain on her RUQ 02/18, back pain 05/20.
Objective Data
-
Labs:
Laboratory Results
09/28/25
06:49
WBC 6.3
Hgb 9.7 L
Hct 30.7 L
Plt Count 207
Sodium 138
Potassium 4.0
Chloride 106
Carbon Dioxide 31 H
BUN 9
Creatinine 0.7
Glucose 74
Calcium 8.8
Vital Signs:
Vital Signs
Temp Pulse Resp BP Pulse Ox
98.7 F 76 12 135/66 95
09/28/25 07:38 09/28/25 07:50 09/28/25 07:38 09/28/25 07:50 09/28/25 07:38
I&O
09/27/25 09/28/25 09/29/25
06:59 06:59 06:59
Intake Total 4250 / 4250
Balance 4250 / 4250
Review of Systems
-
History Source: Patient
Constitutional: Reports No Symptoms
EENT: Reports No Symptoms Reported and Blurry Vision (improved)
Respiratory: Reports No Symptoms
Cardiac: Reports No Symptoms
Abdomen/GI: Reports Abdominal Pain and Constipated
Breast: Reports No Symptoms
Genitourinary: Reports No Symptoms
Musculoskeletal: Reports No Symptoms
Skin: Reports No Symptoms
Neuro: Reports No Symptoms
Endocrine: Reports No Symptoms
Hematologic / Lymphatic: Reports No Symptoms
Allergy / Immunology: Reports No Symptoms
Physical Exam
-
General: Well Developed, Well Nourished and Pain
HEENT: Normocephalic and Atraumatic
Respiratory: Clear to Auscultation
Cardiac: Regular Rhythm and S1/S2
Breast: Deferred by me
GI: Soft, Nondistended and Tender
Rectal: Deferred by Provider
Genito-urinary: Deferred by me
Musculoskeletal: No Clubbing, No Cyanosis and No Edema
Skin: Warm and Dry
Neuro: AO x 3, No Motor Deficits, Nonfocal/Grossly Intact, Central Nerve's Intact and No Sensory Deficits
Hematologic / Lymphatic: No Lymphadenopathy
Psych: Calm
--- NOTE | 2025-09-28 09:28 | CM ---
Patient seen at bedside on . Patient for discharge home today with no needs anticipated. CM will continue to follow for discharge planning needs.
Plan; home with no needs anticipated
[2025-09-28] MEDS: ROXICODONE 10 MG PO (10:34)
[2025-09-28] MEDS: LR IV (13:21)
[2025-09-28] MEDS: LIDOCAINE 4% PATCH 1 PATCH TOPICAL (13:23)
[2025-09-28] MEDS: DILAUDID 0.5 MG IV (13:23)
[2025-09-28 14:29] VITALS: BP 129/88
--- NOTE | 2025-09-28 21:35 | W.DCSUMMARY ---
Addendum entered and electronically signed by Rubio Field MD 09/28/25 23:28:
Read, reviewed, and agree. See same day progress note for additional details.
Rajiv Field MD
Original Note:
Documented by User: Donya Calles MD, Resident 09/28/25 22:03
Discharge Summary
Discharge Data
Date of Admission: 09/26/25
Date of Discharge: 09/28/25
-
Pending Results: No
Hospital Course
Discharging Physician : Dr.Humay aClles, Dr.Benjamin Himanshu Field
Disposition : Home
Primary care physician : Dr. Lance Nina
Principal Discharge diagnosis : Acute on Chronic Pancreatitis
Chronic Discharge diagnosis :
Acute on chronic Alcoholic pancreatitis
Chronic pancreatitis/pancreatic divisum
Chronic abdominal pain with chronic opioid dependence
Hypertension
Hyperlipidemia
Hospital Course :
Mrs. Lala is a 55 y/o female with pmh of chronic pancreatitis, alcohol and tobacco use disorder, TIA, migraine, hypertension, hypercholesterolemia and anxiety/depression presented to ED on 09/26 again with recurrent epigastric pain, nausea/vomiting
consistent with her prior episodes of pancreatitis. Labs on admission revealed elevated lipase of 3430 and normal LFTs. CBC without evidence of leukocytosis and normal Hgb 14.1. She received supportive care with multi-modal pain control, IV fluids
as well as slow advancement of diet as tolerated to low-fat diet. During her stay at the hospital her Hb dropped to 10.4 from 14.1. likely from IVF dilution. Her symptoms improved. No nausea/vomiting/fever. She still has some ongoing chronic pain.
Again discussed the importance of continuing strict alcohol cessation as well as the need to quit smoking which may be resulting in her ongoing recurrent episodes.
Instructions
Please get CBC in a week to check on your Hemoglobin level
Please follow up with calculus teacher in one to two months
Please see your PCP within a week
Important imaging findings :
Abdomen/Pelvis CT w IV contrast:
Findings again seen suspicious for acute pancreatitis most prominent involving the pancreatic head with likely secondary involvement and inflammatory changes of the adjacent distal stomach/duodenal and persistent mild pancreatic ductal dilatation in
comparison to recent prior study. Small pancreatic pseudocyst again suspected slightly smaller in size. Additional small cystic area with air-fluid level anteriorly in the right upper quadrant possibly representing a gastric/duodenal diverticulum,
less likely an additional pseudocyst.
Prior cholecystectomy with slight prominence of the proximal intrahepatic biliary tract.
Small hiatal hernia with possible accompanying wall thickening, cannot exclude inflammation.
Procedure findings : None
Discharge Plan
-
Patient Disposition: Home (Routine Discharge)
Discharge Diagnosis/Procedures: Acute on chronic Alcoholic pancreatitis
Chronic pancreatitis/pancreatic divisum
Chronic abdominal pain with chronic opiate dependence
Hypertension
Hyperlipidemia
Condition: Fair
Diet: As tolerated
Activity: No restrictions
Driving Restrictions: As prior to admission
Bathing Restrictions: None
Blood Work: CBC
Activity Restrictions/Additional Instructions:
Please get CBC in a week to check on your Hemoglobin level
Please follow up with calculus teacher in one to two months
Please see your PCP within a week
Referrals:
Lance Nina, [Family Provider, Family Practice]
José Antonio Jiang MD [Active, Gastroenterology] - in one to two months
Prescriptions:
New
docusate sodium 100 mg capsule
100 mg PO BID Qty: 30 0RF
lidocaine 5 % adhesive patch,medicated
2 patch topical DAILY Qty: 15 0RF
(DME) cbc
See Rx Instructions .ROUTE .MEDSUPPLY Qty: 1 0RF
Rx Instructions:
Dx:Anemia
Please send results to Lance Nina
Continued
omeprazole 40 MG capsule,delayed release(DR/EC)
40 mg PO DAILY
famotidine 20 MG tablet
20 mg PO HS
sertraline 100 mg Tablet
200 mg PO DAILY
hydrocodone-acetaminophen 10-325 mg Tablet
2 tab PO TID
bupropion HCl [Wellbutrin XL] 150 mg Tablet Extended Release 24 Hr
150 mg PO DAILY
Repatha SureClick 140 mg/mL Pen Injector
140 mg SC Q2W
fenofibrate nanocrystallized 145 mg Tablet
145 mg PO DAILY Qty: 30 0RF
ondansetron HCl 4 mg Tablet
4 mg PO Q6HPRN PRN (Reason: nausea)
aspirin 81 mg Tablet,Delayed Release (Dr/Ec)
81 mg PO DAILY
olmesartan [Benicar] 40 mg Tablet
40 mg PO DAILY
alprazolam 1 mg tablet
2 mg PO HS
zolpidem 10 mg tablet
10 mg PO HSPRN PRN (Reason: sleep)
fentanyl 75 mcg/hr patch 72 hour
75 mcg transdermal Q72H
Trintellix 10 mg tablet
10 mg PO DAILY
albuterol sulfate 90 mcg/actuation HFA aerosol inhaler
2 puff INHALATION R Q6HPRN PRN (Reason: sob)
Discharge Orders:
Discharge Patient (As Directed); Ordered 09/28/25
Ordered By: Donya Calles
Discharge Date and Time
Discharge Date/Time: 09/28/25 16:49
Print Language: SAMMARINESE

Documented by User: Rubio Field MD 09/28/25 23:23
Discharge Summary
Discharge Data
Date of Admission: 09/26/25
Date of Discharge: 09/28/25
Discharge Plan
-
Patient Disposition: Home (Routine Discharge)
Discharge Diagnosis/Procedures: Acute on chronic Alcoholic pancreatitis
Chronic pancreatitis/pancreatic divisum
Chronic abdominal pain with chronic opiate dependence
Hypertension
Hyperlipidemia
Condition: Fair
Diet: As tolerated
Activity: No restrictions
Driving Restrictions: As prior to admission
Bathing Restrictions: None
Blood Work: CBC
Activity Restrictions/Additional Instructions:
Please get CBC in a week to check on your Hemoglobin level
Please follow up with calculus teacher in one to two months
Please see your PCP within a week
Referrals:
Lance Nina DO [Family Provider, Family Practice]
José Antonio Jiang MD [Active, Gastroenterology] - in one to two months
Prescriptions:
New
docusate sodium 100 mg capsule
100 mg PO BID Qty: 30 0RF
lidocaine 5 % adhesive patch,medicated
2 patch topical DAILY Qty: 15 0RF
(DME) cbc
See Rx Instructions .ROUTE .MEDSUPPLY Qty: 1 0RF
Rx Instructions:
Dx:Anemia
Please send results to Lance Nina
Continued
omeprazole 40 MG capsule,delayed release(DR/EC)
40 mg PO DAILY
famotidine 20 MG tablet
20 mg PO HS
sertraline 100 mg Tablet
200 mg PO DAILY
hydrocodone-acetaminophen 10-325 mg Tablet
2 tab PO TID
bupropion HCl [Wellbutrin XL] 150 mg Tablet Extended Release 24 Hr
150 mg PO DAILY
Repatha SureClick 140 mg/mL Pen Injector
140 mg SC Q2W
fenofibrate nanocrystallized 145 mg Tablet
145 mg PO DAILY Qty: 30 0RF
ondansetron HCl 4 mg Tablet
4 mg PO Q6HPRN PRN (Reason: nausea)
aspirin 81 mg Tablet,Delayed Release (Dr/Ec)
81 mg PO DAILY
olmesartan [Benicar] 40 mg Tablet
40 mg PO DAILY
alprazolam 1 mg tablet
2 mg PO HS
zolpidem 10 mg tablet
10 mg PO HSPRN PRN (Reason: sleep)
fentanyl 75 mcg/hr patch 72 hour
75 mcg transdermal Q72H
Trintellix 10 mg tablet
10 mg PO DAILY
albuterol sulfate 90 mcg/actuation HFA aerosol inhaler
2 puff INHALATION R Q6HPRN PRN (Reason: sob)
Discharge Orders:
Discharge Patient (As Directed); Ordered 09/28/25
Ordered By: Donya Calles
Discharge Date and Time
Discharge Date/Time: 09/28/25 16:49
Print Language: SAMMARINESE
== END 2025-09-28 16:49 | disposition home or self-care (01) | DRG 439 ==
LOC: 4 WEST ACU 15:16
PROVIDERS: Registered Nurse; ADMITTING PHYSICIAN Internal Medicine; ATTENDING PHYSICIAN Family Medicine; CONSULT PHYSICIAN Student in an Organized Health Care Education/Training Program; EMERGENCY PHYSICIAN Emergency Medicine; FAMILY PHYSICIAN Family Medicine
DX: K85.20 Alcohol induced acute pancreatitis without necrosis or infection (principal); F11.20 Opioid dependence, uncomplicated; Q45.3 Other congenital malformations of pancreas and pancreatic duct; K86.3 Pseudocyst of pancreas; K86.0 Alcohol-induced chronic pancreatitis; F10.10 Alcohol abuse, uncomplicated; K21.9 Gastro-esophageal reflux disease without esophagitis; E78.5 Hyperlipidemia, unspecified; G43.909 Migraine, unspecified, not intractable, without status migrainosus; F32.A Depression, unspecified; F41.9 Anxiety disorder, unspecified; D63.1 Anemia in chronic kidney disease; G47.00 Insomnia, unspecified; G89.29 Other chronic pain; R10.9 Unspecified abdominal pain; F17.210 Nicotine dependence, cigarettes, uncomplicated; I12.9 Hypertensive chronic kidney disease with stage 1 through stage 4 chronic kidney disease, or unspecified chronic kidney disease; N18.9 Chronic kidney disease, unspecified; E11.22 Type 2 diabetes mellitus with diabetic chronic kidney disease; K31.89 Other diseases of stomach and duodenum; K59.09 Other constipation; K76.0 Fatty (change of) liver, not elsewhere classified; Z79.82 Long term (current) use of aspirin; Z79.899 Other long term (current) drug therapy; Z86.73 Personal history of transient ischemic attack (TIA), and cerebral infarction without residual deficits
CPT/HCPCS: 74177; 80048; 80053; 80306; 80307; 82077; 83690; 83735; 84484; 85014; 85018; 85025; 85027; 86850; 86900; 86901; 93005; 96361; 96374; 96375; 99285; 99406; Q9967